=== PATIENT | male | born 1945 | race Caucasian/White ===

== ENCOUNTER → 2016-09-20 | Outpatient (CLI) | payer OTHER ==
[2016-07-15 04:52] VITALS: BP 124/62
--- NOTE | 2016-09-21 07:52 | MRI ---
HISTORY: Low back pain, fall, compression fracture Study: MRI lumbar spine without contrast Comparison: None Technique: Multiplanar multi-sequence MRI of the lumbar spine was obtained. Sagittal T1, sagittal T 2, and stir weighted images, axial T1, and axial T2 images were obtained. Findings: There is a compression fracture of L4 demonstrating signal characteristics suggesting that it is rec ent . There is slight retrolisthesis L5 on S1. The lumbar spine demonstrates otherwise normal alignm ent with the expected signal characteristics of the bone marrow. The conus of the cord terminates n ormally. T12-L1 : No evidence for compressive disc disease. The neural foramina are patent. The joints are no rmal. L1-2: There is disc degeneration. There is increased T2 signal within the disc which could be relate d to edema or fluid. Disc infection should be clinically excluded. There is no evidence for compress brent disc disease. The neural foramina are patent. The joints are normal. L2-3: No evidence for compressive disc disease. The neural foramina are patent. The joints are bryon l. L3-4:: As noted above there is an L4 compression fracture with signal characteristics suggesting elham t it is recent. There is no evidence for compressive disc disease. The neural foramina are patent. T he joints are normal. L4 -- L5: Concentric disk bulging contributes along with mild pedicular shortening to mild lateral r ecess narrowing bilaterally. The joints are normal. L5 -- S1: There is slight retrolisthesis L5 on S1 which contributes to mild lateral recess and macrina inal narrowing bilaterally worse on the right than the left. Mild bilateral facet arthropathy is pre sent. IMPRESSION: Compression fracture of L4 with signal characteristics suggesting that it is recent Abnormal T2 signal within the L1-2 disc which could indicate edema or fluid secondary to disc infect ion. Disc infection should be clinically excluded. Other disc level findings detailed for each level above. Reported By:
== END ==
LOC: RAD 09:27
PROVIDERS: ATTEND Specialist
DX: S32.040A Wedge compression fracture of fourth lumbar vertebra, initial encounter for closed fracture (principal); X58.XXXA Exposure to other specified factors, initial encounter
CPT/HCPCS: 72148

== ENCOUNTER → 2016-10-17 | Outpatient (CLI) | payer OTHER ==
[2016-07-15 04:52] VITALS: BP 124/62
[2016-10-17 13:31] LABS: BILIRUBIN,URINE NEGATIVE (NEGATIVE); BLOOD/HEMOGLOBIN,URINE 1+ (NEGATIVE); GLUCOSE, URINE 1+ (NEGATIVE); KETONES,URINE NEGATIVE (NEGATIVE); LEUKOCYTE ESTERASE ,URINE 1+ (NEGATIVE); NITRITES,URINE NEGATIVE (NEGATIVE); PROTEIN,URINE 1+ (NEGATIVE); UROBILINOGEN,URINE NORMAL (NORMAL)
--- NOTE | 2016-10-17 13:35 | RAD ---
HISTORY: Preop back surgery. Study: PA and lateral chest. Comparison: Chest x-ray dated September 10, 2015. Findings: The trachea is midline. The cardiac silhouette is at the upper limits of normal. Postsurgical huffman es status post CABG. The lungs are clear without focal infiltrate or effusion. The osseous structu res appear unchanged. Surgical clips in the right upper quadrant. IMPRESSION: 1. No acute cardiopulmonary disease. Reported By:
[2016-10-17 13:41] LABS: BASOPHILS # (AUTO) 0.1 X10^3/uL (0.0-0.1); BASOPHILS % (AUTO) 0.9 % (0.2-1.0); EOSINOPHILS # (AUTO) 0.2 x10^3/uL (0.0-0.2); EOSINOPHILS % (AUTO) 3.2 % (0.9-2.9); HEMATOCRIT 37.5 % (42.0-54.0); HEMOGLOBIN 12.8 g/dL (13.5-18.0); LYMPHOCYTES # (AUTO) 2.1 X10^3/uL (1.3-2.9); LYMPHOCYTES % (AUTO) 28.1 % (21.0-51.0); MEAN CORPUSCULAR HEMOGLOBIN 30.8 pg (27.0-34.0); MEAN CORPUSCULAR HGB CONC 34.1 g/dL (33.0-35.0); MEAN CORPUSCULAR VOLUME 90.2 fL (80.0-100.0); MEAN PLATELET VOLUME 7.9 fL (7.4-11.0); MONOCYTES # (AUTO) 0.4 x10^3/uL (0.3-0.8); MONOCYTES % (AUTO) 5.1 % (0.0-13.0); NEUTROPHILS # (AUTO) 4.6 x10^3/uL (2.2-4.8); NEUTROPHILS % (AUTO) 62.7 % (42.0-75.0); PLATELET COUNT 175 X10^3/uL (150.0-450.0); RED BLOOD COUNT 4.16 X10^6/uL (4.7-6.0); RED CELL DISTRIBUTION WIDTH 15.7 % (11.6-16.5); WHITE BLOOD COUNT 7.3 X10^3/uL (3.6-10.0)
[2016-10-17 13:42] LABS: AMORPHOUS SEDIMENT,UR TRACE /HPF (NEGATIVE); APPEARANCE,URINE SLIGHTLY HAZY (CLEAR); BACTERIA,URINE TRACE /HPF (NEGATIVE); COLOR,URINE YELLOW (YELLOW); SQUAMOUS EPITHELIAL CELL,UR FEW /HPF (NEGATIVE)
[2016-10-17 13:45] LABS: ALANINE AMINOTRANSFERASE 45 Units/L (12-78); ALBUMIN 3.9 g/dL (3.4-5.0); ALKALINE PHOSPHATASE 77 Units/L (46-116); ASPARTATE AMINO TRANSFERASE 31 Units/L (15-37); BLOOD UREA NITROGEN 17 mg/dL (7-18); CALCIUM 9.8 mg/dL (8.5-10.1); CARBON DIOXIDE 30.9 mmol/L (21-32); CHLORIDE 108 mmol/L (98-107); COR NA(FOR HYPERGLY) 147 mmol/L (136-145); CREATININE 1.35 mg/dL (0.70-1.30); GLUCOSE 144 mg/dL (65-99); SODIUM 146 mmol/L (136-145); TOTAL PROTEIN 7.6 g/dL (6.4-8.2); eGFR BLACK RACES > 60 (>60); eGFR NON BLACK RACES 56 (>60)
== END | disposition home or self-care (01) ==
LOC: LAB 12:56
PROVIDERS: ATTEND Specialist
DX: Z01.818 Encounter for other preprocedural examination (principal); Z01.810 Encounter for preprocedural cardiovascular examination; Z01.811 Encounter for preprocedural respiratory examination; Z79.899 Other long term (current) drug therapy; Z79.01 Long term (current) use of anticoagulants; Z11.8 Encounter for screening for other infectious and parasitic diseases; S32.000A Wedge compression fracture of unspecified lumbar vertebra, initial encounter for closed fracture; X58.XXXA Exposure to other specified factors, initial encounter
CPT/HCPCS: 36415; 71020; 80053; 81001; 85025; 85610; 85730; 87641; 93005; 93010

== ENCOUNTER 2016-10-19 07:26 | Day surgery (SDC) | payer OTHER ==
[2016-10-19] MEDS ORDERED: MARCAINE 0.25% WITH EPI IJ ONE (07:27)
[2016-10-19] MEDS ORDERED: XYLOCAINE 1 % (PLAIN) ONE (07:27)
[2016-10-19] MEDS ORDERED: D5 LR 1000 ML 1,000 ML IV ONE (07:40)
[2016-10-19] MEDS ORDERED: NS 50 ML IV + SPIKE MINIBAG* 50 ML IV ONE (07:40)
[2016-10-19] MEDS ORDERED: ANCEF VIAL 1 GM ONE (07:41)
[2016-10-19] MEDS ORDERED: NS 1000 ML 1,000 ML ONE (07:51)
[2016-10-19] MEDS ORDERED: FENTANYL INJ 250 mcg ONE (08:39)
[2016-10-19] MEDS ORDERED: KETALAR ONE (08:39)
[2016-10-19] MEDS ORDERED: DILAUDID INJ ONE (08:39)
[2016-10-19] MEDS ORDERED: BENADRYL INJ 50 MG VIAL ONE (09:18)
[2016-10-19] MEDS ORDERED: DIPRIVAN VIAL ONE (10:10)
[2016-10-19] MEDS ORDERED: BENADRYL INJ 50 MG VIAL IVP PRN (10:12)
[2016-10-19] MEDS ORDERED: DILAUDID INJ IVP PRN (10:12)
[2016-10-19] MEDS ORDERED: ZOFRAN INJ 4 MG VIAL IVP PRN (10:12)
[2016-10-19] MEDS ORDERED: PHENERGAN INJ 25 MG IVP PRN (10:12)
[2016-10-19] MEDS ORDERED: LR 1000 ML IV 1,000 ML IV SCH (11:00)
[2016-10-19 12:20] VITALS: BP 131/69
== END 2016-10-19 11:20 | disposition home or self-care (01) | DRG 517 ==
LOC: SURG1 07:26
PROVIDERS: ATTEND Specialist
PROC: 0QS03ZZ Reposition Lumbar Vertebra, Percutaneous Approach (ICD-10-PCS; principal; 2016-10-19 08:30)
PROC: 0QU03JZ Supplement Lumbar Vertebra with Synthetic Substitute, Percutaneous Approach (ICD-10-PCS; principal; 2016-10-19 08:30)
DX: S32.040A Wedge compression fracture of fourth lumbar vertebra, initial encounter for closed fracture (principal); X58.XXXA Exposure to other specified factors, initial encounter
CPT/HCPCS: 76000; 99100; A4222; S0020; J0690; J1170; J1200; J2001; J3010; J3490; J7120

== ENCOUNTER 2016-11-22 20:06 | Emergency (ER) | payer OTHER ==
[2016-11-22 20:15] VITALS: BP 128/69; BMI 25.2
[2016-11-22] MEDS ORDERED: NS 500 ML IV 500 ML IV ONE ×2 (20:42→20:45)
[2016-11-22] MEDS ORDERED: ZOFRAN INJ 4 MG VIAL IVP ONE (20:42)
[2016-11-22] MEDS ORDERED: ZOFRAN INJ 4 MG VIAL ONE (20:45)
--- NOTE | 2016-11-22 20:45 | DR.GENAD ---
HPI - PCP Primary Care Physician: ROXANN - Complaint/Symptoms Chief Complaint:: " I HAVENT BEEN ABLE TO EAT ANYTHING X4 DAYS AND N/V." - Source History Provided: Patient - Mode of Arrival Mode of Arrival: Ambulatory - Timing Onset of Chief Complaint: 11/18/16 Came on: Gradually - Duration Duration: Constant How lon Duration: Days - Location Location: stomach - Severity Severity: Moderate - Modifying Factors Worsens:: food - Associated Signs and Symptoms Associated Signs and Symptoms: vomiting PMH - PMH Past Medical History: Yes Past Medical History: Anemia, Anxiety, Coronary Artery Disease, Diabetes, Dyslipidemia, GERD, Hypertension, Hypothyroidism, Kidney Stones, [place] Past Surgical History: Yes Surgical History: Ortho Surgery Past Surgical History Comment: 4 BYPASS 2001 - Family History History of Family Medical Conditions: Yes Family Medical History: Diabetes Mellitus, Cancer, [place], Coronary Artery Disease, Heart Failure - Social History Alcohol Use: None Do you use any recreational Drugs:: No Lives With: Family Lives Where: Home - infectious screening Have you traveled outside the country in the last 6 months?: No PE - Vital Signs Vitals: Temperature 99.9 F Pulse Rate 82 Respiratory Rate 18 Blood Pressure [Left Arm] 132/63 Blood Pressure [Right Arm] 102/55 Blood Pressure 128/69 O2 Sat by Pulse Oximetry 97 Course - Treatment Treatment: 2200: feels better after IVF and zofran ROR - Labs Reviewed Result Diagrams: 11/22/16 21:10 11/22/16 21:10 Laboratory: WBC 9.8 X10^3/uL (3.6-10.0) 11/22/16 21:10 RBC 3.87 X10^6/uL (4.7-6.0) L 11/22/16 21:10 Hgb 12.3 g/dL (13.5-18.0) L 11/22/16 21:10 Hct 35.2 % (42.0-54.0) L 11/22/16 21:10 MCV 90.9 fL (80.0-100.0) 11/22/16 21:10 MCH 31.8 pg (27.0-34.0) 11/22/16 21:10 MCHC 35.0 g/dL (33.0-35.0) 11/22/16 21:10 RDW 15.7 % (11.6-16.5) 11/22/16 21:10 Plt Count 159 X10^3/uL (150.0-450.0) 11/22/16 21:10 MPV 8.2 fL (7.4-11.0) 11/22/16 21:10 Neut % 71.3 % (42.0-75.0) 11/22/16 21:10 Lymph % 13.7 % (21.0-51.0) L 11/22/16 21:10 [place] % 12.1 % (0.0-13.0) 11/22/16 21:10 Eos % 2.1 % (0.9-2.9) 11/22/16 21:10 Baso % 0.8 % (0.2-1.0) 11/22/16 21:10 Neut # 7.0 x10^3/uL (2.2-4.8) H 11/22/16 21:10 Lymph # 1.3 X10^3/uL (1.3-2.9) 11/22/16 21:10 [place] # 1.2 x10^3/uL (0.3-0.8) H 11/22/16 21:10 Eos # 0.2 x10^3/uL (0.0-0.2) 11/22/16 21:10 Baso # 0.1 X10^3/uL (0.0-0.1) 11/22/16 21:10 Absolute Nucleated RBC 0.1 /100WBC 11/22/16 21:10 Sodium 133 mmol/L (136-145) L 11/22/16 21:10 Corrected Sodium 137 mmol/L (136-145) 11/22/16 21:10 Potassium 4.1 mmol/L (3.5-5.1) 11/22/16 21:10 Chloride 96 mmol/L (98-107) L 11/22/16 21:10 Carbon Dioxide 28.7 mmol/L (21-32) 11/22/16 21:10 BUN 16 mg/dL (7-18) 11/22/16 21:10 Creatinine 1.57 mg/dL (0.70-1.30) H 11/22/16 21:10 Est GFR (MDRD) Af Amer 56 (>60) L 11/22/16 21:10 Est GFR (MDRD) Non-Af 47 (>60) L 11/22/16 21:10 Glucose 265 mg/dL (65-99) H 11/22/16 21:10 Calcium 8.5 mg/dL (8.5-10.1) 11/22/16 21:10 Corrected Calcium TNP 11/22/16 21:10 Total Bilirubin 1.50 mg/dL (0.2-1.0) H 11/22/16 21:10 AST 19 Units/L (15-37) 11/22/16 21:10 ALT 31 Units/L (12-78) 11/22/16 21:10 Alkaline Phosphatase 74 Units/L (46-116) 11/22/16 21:10 Total Protein 7.7 g/dL (6.4-8.2) 11/22/16 21:10 Albumin 3.4 g/dL (3.4-5.0) 11/22/16 21:10 Globulin 4.3 g/dL (2.5-4.5) 11/22/16 21:10 Albumin/Globulin Ratio 0.8 Ratio (1.1-2.1) L 11/22/16 21:10 - Diagnosis Discharge Problem: Vomiting Qualifiers: Vomiting type: unspecified Vomiting Intractability: non-intractable Nausea presence: with nausea Qualified Code(s): R11.2 - Nausea with vomiting, unspecified - Discharge Plan Condition: Stable Prescriptions: Ondansetron [Zofran Odt] 4 mg PO Q8H PRN #12 tab PRN Reason: Nausea/Vomiting - Follow ups/Referrals Follow ups/Referrals: Deric Stauffer [Primary Care Provider] - 3 days - Instructions
[2016-11-22 21:19] LABS: BASOPHILS # (AUTO) 0.1 X10^3/uL (0.0-0.1); BASOPHILS % (AUTO) 0.8 % (0.2-1.0); EOSINOPHILS # (AUTO) 0.2 x10^3/uL (0.0-0.2); EOSINOPHILS % (AUTO) 2.1 % (0.9-2.9); HEMATOCRIT 35.2 % (42.0-54.0); HEMOGLOBIN 12.3 g/dL (13.5-18.0); LYMPHOCYTES # (AUTO) 1.3 X10^3/uL (1.3-2.9); LYMPHOCYTES % (AUTO) 13.7 % (21.0-51.0); MEAN CORPUSCULAR HEMOGLOBIN 31.8 pg (27.0-34.0); MEAN CORPUSCULAR VOLUME 90.9 fL (80.0-100.0); MEAN PLATELET VOLUME 8.2 fL (7.4-11.0); MONOCYTES # (AUTO) 1.2 x10^3/uL (0.3-0.8); MONOCYTES % (AUTO) 12.1 % (0.0-13.0); NEUTROPHILS % (AUTO) 71.3 % (42.0-75.0); PLATELET COUNT 159 X10^3/uL (150.0-450.0); RED BLOOD COUNT 3.87 X10^6/uL (4.7-6.0); RED CELL DISTRIBUTION WIDTH 15.7 % (11.6-16.5); WHITE BLOOD COUNT 9.8 X10^3/uL (3.6-10.0)
[2016-11-22 21:35] LABS: ALANINE AMINOTRANSFERASE 31 Units/L (12-78); ALBUMIN 3.4 g/dL (3.4-5.0); ALKALINE PHOSPHATASE 74 Units/L (46-116); ASPARTATE AMINO TRANSFERASE 19 Units/L (15-37); BLOOD UREA NITROGEN 16 mg/dL (7-18); CALCIUM 8.5 mg/dL (8.5-10.1); CARBON DIOXIDE 28.7 mmol/L (21-32); CHLORIDE 96 mmol/L (98-107); COR NA(FOR HYPERGLY) 137 mmol/L (136-145); CREATININE 1.57 mg/dL (0.70-1.30); GLUCOSE 265 mg/dL (65-99); SODIUM 133 mmol/L (136-145); TOTAL PROTEIN 7.7 g/dL (6.4-8.2); eGFR BLACK RACES 56 (>60); eGFR NON BLACK RACES 47 (>60)
== END 2016-11-22 22:30 | disposition home or self-care (01) ==
LOC: ER 20:20
DX: R11.2 Nausea with vomiting, unspecified (principal)
CPT/HCPCS: 36415; 80053; 85025; 96365; 96367; 96374; 99282; 99283; A4222; J2405

== ENCOUNTER 2016-11-24 11:32 | Emergency (ER) | payer OTHER ==
[2016-11-24 11:38] VITALS: BP 118/70; BMI 25.2
[2016-11-24 11:59] LABS: BASOPHILS # (AUTO) 0.1 X10^3/uL (0.0-0.1); BASOPHILS % (AUTO) 0.8 % (0.2-1.0); EOSINOPHILS # (AUTO) 0.3 x10^3/uL (0.0-0.2); EOSINOPHILS % (AUTO) 2.6 % (0.9-2.9); HEMATOCRIT 34.8 % (42.0-54.0); HEMOGLOBIN 12.3 g/dL (13.5-18.0); LYMPHOCYTES % (AUTO) 9.7 % (21.0-51.0); MEAN CORPUSCULAR HEMOGLOBIN 32.1 pg (27.0-34.0); MEAN CORPUSCULAR HGB CONC 35.4 g/dL (33.0-35.0); MEAN CORPUSCULAR VOLUME 90.6 fL (80.0-100.0); MEAN PLATELET VOLUME 8.2 fL (7.4-11.0); MONOCYTES % (AUTO) 9.3 % (0.0-13.0); NEUTROPHILS # (AUTO) 8.1 x10^3/uL (2.2-4.8); NEUTROPHILS % (AUTO) 77.6 % (42.0-75.0); PLATELET COUNT 179 X10^3/uL (150.0-450.0); RED BLOOD COUNT 3.84 X10^6/uL (4.7-6.0); RED CELL DISTRIBUTION WIDTH 15.1 % (11.6-16.5); WHITE BLOOD COUNT 10.5 X10^3/uL (3.6-10.0)
[2016-11-24 12:11] LABS: ALBUMIN 3.3 g/dL (3.4-5.0); CALCIUM 8.4 mg/dL (8.5-10.1); CARBON DIOXIDE 27.5 mmol/L (21-32); CREATININE 1.53 mg/dL (0.70-1.30); TOTAL PROTEIN 7.8 g/dL (6.4-8.2)
--- NOTE | 2016-11-24 12:14 | DR.GENAD ---
HPI - PCP Primary Care Physician: ROXANN - Complaint/Symptoms Chief Complaint:: STATES PT. HAS BEEN SICK FOR ABOUT A WEEK WITH DECREASED APPEPTITE, N/V, CONFUSION. PT. WAS SEEN IN THE ER ON 11/22/16 AND RECEIVED IV FLUIDS. STATES PT. IS NOT EATING OR DRINKING ANYTHING AND THE CONFUSION HAS BEEN PERSISTENT. PT. C/O ABDOMINAL PAIN & NAUSEA. - Source History Provided: Patient - Mode of Arrival Mode of Arrival: Ambulatory - Timing Onset of Chief Complaint: 11/22/16 PMH - PMH Past Medical History: Yes Past Medical History: Anemia, Anxiety, Coronary Artery Disease, Diabetes, Dyslipidemia, GERD, Hypertension, Hypothyroidism, Kidney Stones, [place] Past Surgical History: Yes Surgical History: Ortho Surgery - Family History History of Family Medical Conditions: Yes Family Medical History: Diabetes Mellitus, Cancer, [place], Coronary Artery Disease, Heart Failure - Social History Does patient currently use any type of tobacco product: No Have you used tobacco products in the last 12 months: No Type of Tobacco Use: None Does any household member use tobacco: No Alcohol Use: None Do you use any recreational Drugs:: No Lives With: Spouse Lives Where: Home - infectious screening In the last 2 months have you had wt loss of >10#?: NO Have you had fever, night sweats or hemotysis?: No Have you traveled outside the country in the last 6 months?: No Isolation: Standard PE - Vital Signs Vitals: Temperature 98.6 F Pulse Rate 78 Respiratory Rate 17 Blood Pressure [Left Arm] 132/63 Blood Pressure [Right Arm] 102/55 Blood Pressure 118/70 O2 Sat by Pulse Oximetry 97 ROR - Labs Reviewed Result Diagrams: 11/24/16 11:50 11/24/16 11:50 Laboratory: WBC 10.5 X10^3/uL (3.6-10.0) H 11/24/16 11:50 RBC 3.84 X10^6/uL (4.7-6.0) L 11/24/16 11:50 Hgb 12.3 g/dL (13.5-18.0) L 11/24/16 11:50 Hct 34.8 % (42.0-54.0) L 11/24/16 11:50 MCV 90.6 fL (80.0-100.0) 11/24/16 11:50 MCH 32.1 pg (27.0-34.0) 11/24/16 11:50 MCHC 35.4 g/dL (33.0-35.0) H 11/24/16 11:50 RDW 15.1 % (11.6-16.5) 11/24/16 11:50 Plt Count 179 X10^3/uL (150.0-450.0) 11/24/16 11:50 MPV 8.2 fL (7.4-11.0) 11/24/16 11:50 Neut % 77.6 % (42.0-75.0) H 11/24/16 11:50 Lymph % 9.7 % (21.0-51.0) L 11/24/16 11:50 [place] % 9.3 % (0.0-13.0) 11/24/16 11:50 Eos % 2.6 % (0.9-2.9) 11/24/16 11:50 Baso % 0.8 % (0.2-1.0) 11/24/16 11:50 Neut # 8.1 x10^3/uL (2.2-4.8) H 11/24/16 11:50 Lymph # 1.0 X10^3/uL (1.3-2.9) L 11/24/16 11:50 [place] # 1.0 x10^3/uL (0.3-0.8) H 11/24/16 11:50 Eos # 0.3 x10^3/uL (0.0-0.2) H 11/24/16 11:50 Baso # 0.1 X10^3/uL (0.0-0.1) 11/24/16 11:50 Absolute Nucleated RBC 0.0 /100WBC 11/24/16 11:50 - Diagnosis Discharge Problem: Dehydration - Discharge Plan Disposition: 01 HOME, SELF-CARE Condition: Good - Follow ups/Referrals Follow ups/Referrals: Deric Stauffer [Primary Care Provider] - 3 days - Instructions Instructions: Nausea, Adult, Dehydration, Adult, [id number], Rehydration, Adult
[2016-11-24 12:15] LABS: BILIRUBIN,URINE NEGATIVE (NEGATIVE); BLOOD/HEMOGLOBIN,URINE 3+ (NEGATIVE); GLUCOSE, URINE 3+ (NEGATIVE); KETONES,URINE 1+ (NEGATIVE); LEUKOCYTE ESTERASE ,URINE NEGATIVE (NEGATIVE); NITRITES,URINE NEGATIVE (NEGATIVE); PROTEIN,URINE 2+ (NEGATIVE); UROBILINOGEN,URINE 2+ (NORMAL)
[2016-11-24 12:25] LABS: AMORPHOUS SEDIMENT,UR 2+ /HPF (NEGATIVE); APPEARANCE,URINE CLEAR (CLEAR); BACTERIA,URINE NEGATIVE /HPF (NEGATIVE); COLOR,URINE YELLOW (YELLOW); RBC,URINE RARE /HPF (NEGATIVE); SQUAMOUS EPITHELIAL CELL,UR RARE /HPF (NEGATIVE)
--- NOTE | 2016-11-24 12:54 | CT ---
HISTORY: mental status changes Study: CT brain without contrast Comparison: 07/15/2016 Technique: Multiple axial images of the brain were obtained from the skull base to the vertex without administr ation of IV contrast. Automated dose control was used. Findings: The ventricles are mildly enlarged and there is diffuse mild prominence of the cortical sulci. There is mild to moderate periventricular low density bilaterally which is unchanged. No intracranial hem orrhage or edema is seen. There is no extra-axial fluid collection or mass. The bones are intact. IMPRESSION: Mild atrophy and mild to moderate chronic microischemic changes in the deep white matter which is un changed with no acute intracranial abnormality seen. Reported By:
[2016-11-24] MEDS ORDERED: NS 1000 ML 1,000 ML IV ONE (13:42)
[2016-11-24] MEDS ORDERED: NS 1000 ML 1,000 ML ONE (13:49)
== END 2016-11-24 15:29 | disposition home or self-care (01) ==
LOC: ER 11:52
DX: E86.0 Dehydration (principal); G31.9 Degenerative disease of nervous system, unspecified
CPT/HCPCS: 36415; 51702; 70450; 80053; 80307; 81001; 82150; 85025; 93005; 93010; 96365; 99283; A4222; G0434

== ENCOUNTER 2016-11-25 19:06 | Observation (INO) | payer OTHER ==
--- NOTE | 2016-11-25 19:50 | DR.GENAD ---
HPI - PCP Primary Care Physician: Eh - HPI Comment HPI Comment: HISTORY BELOW. - Complaint/Symptoms Chief Complaint Doctors Comments: SICK FOR 2 WEEKS WITH GENERALIZE WEAKNESS, NAUSEA, VOMITING. HAD ARTERIOGAM LLE. FEW DAYS AGO. ON CIPRO FOR UTI CURRENTLY. HAD CHILLS LAST NIGHT. Chief Complaint:: "He has came here two different times now for the same thing. He is severely dehydrated and is running a fever. He can't keep anything down and is not able to take his dementia medicine. He has also not been able to control his urine and has constant accidents. He is also confused." - Nurses notes reviewed Nurses Notes Review: Yes - Source History Provided: Patient - Mode of Arrival Mode of Arrival: Wheelchair - Timing Onset of Chief Complaint: 11/09/16 Came on: Suddenly - Duration Duration: Constant Duration: Days - Severity Severity: Moderate PMH - PMH Past Medical History: Yes Past Medical History: Anemia, Anxiety, Coronary Artery Disease, Diabetes, Dyslipidemia, GERD, Hypertension, Hypothyroidism, Kidney Stones, [place] Past Surgical History: Yes Surgical History: Ortho Surgery - Family History History of Family Medical Conditions: Yes Family Medical History: Diabetes Mellitus, Cancer, [place], Coronary Artery Disease, Heart Failure - Social History Does patient currently use any type of tobacco product: No Have you used tobacco products in the last 12 months: No Type of Tobacco Use: None Does any household member use tobacco: No Alcohol Use: None Do you use any recreational Drugs:: No Lives With: Family Lives Where: Home - infectious screening In the last 2 months have you had wt loss of >10#?: NO Have you had fever, night sweats or hemotysis?: No Have you traveled outside the country in the last 6 months?: No Isolation: Standard ROS - Review of Systems Constitutional: Chills, Fever, Weakness, Fatigue. negative: Diaphoresis Eyes: Photophobia. negative: Eye Pain, Discharge ENTM: No Symptoms Reported. negative: Ear Pain, Nose Discharge, Nose Congestion , Throat Pain Respiratoy: Non-Productive Cough, Short of Breath, Wheezing. negative: Hemoptysis Cardiovascular: Chest Pain. negative: Edema, Palpitations, Syncope Gastrointestinal/Abdominal: Nausea, Vomiting. negative: Abdominal Pain Genitourinary: No Symptoms Reported. negative: Dysuria, Frequency, Hematuria Neurological: Weakness, Dizziness. negative: Headache Musculoskeletal: Back Pain, Muscle Pain Integumentary: Dryness Hematologic/Lymphatic: Easy Bruising Endocrine: Increased Thirst. negative: Flushing All Other Systems: Reviewed and Negative PE - Vital Signs Vitals: Blood Pressure [Left Arm] 132/63 Blood Pressure [Right Arm] 102/55 Blood Pressure 118/70 - General Limitations: Altered Mental Status General Appearance: Alert - Head Head Exam: Normal Inspection - Eyes Eye exam: Normal Appearance - ENT ENT Exam: Normal External Ear Exam External Ear Exam: Normal External Inspection TM/Canal Exam: Bilateral Normal Nose Exam: Normal Nose Exam Mouth Exam: Normal Inspection Throat Exam: Normal Inspection - Neck Neck Exam: Trachea Midline - Chest Chest Inspection: Symmetric Chest Wall Rise - Respiratory Respiratory Exam: Respiratory Distress Respiratory Exam: Bilateral Rhonchi, Upper Rhonchi, Lower Rhonchi - Cardiovascular Cardiovascular Exam: Regular Rate, Normal Rhythm, Normal Heart Sounds - Abdominal Exam Abdominal Exam: Normal Bowel Sounds, Soft. negative: Tenderness - Extremities Extremities Exam: Normal Inspection - Back Back Exam: Paraspinal Tenderness - Neurologic Neurological Exam: Alert MDM - Additional Information Additional Information Obtained From: Family - Differential Diagnosis Differential Diagnosis: GENERALIZE WEAKNESS, DEHYDRATION, Course - Treatment Treatment: SEE ORDERS. - Education/Counseling Education/Counseling: Patient, Family, Education Educated On: Treatment, Diagnosis, Needs for Follow Up ROR - Labs Reviewed Laboratory Results Reviewed?: Yes Result Diagrams: 11/25/16 20:05 11/25/16 20:05 Laboratory: WBC 18.1 X10^3/uL (3.6-10.0) H 11/25/16 20:05 RBC 3.63 X10^6/uL (4.7-6.0) L 11/25/16 20:05 Hgb 11.4 g/dL (13.5-18.0) L 11/25/16 20:05 Hct 32.8 % (42.0-54.0) L 11/25/16 20:05 MCV 90.4 fL (80.0-100.0) 11/25/16 20:05 MCH 31.3 pg (27.0-34.0) 11/25/16 20:05 MCHC 34.6 g/dL (33.0-35.0) 11/25/16 20:05 RDW 14.8 % (11.6-16.5) 11/25/16 20:05 Plt Count 210 X10^3/uL (150.0-450.0) 11/25/16 20:05 Plt Count Comment Adequate (ADEQUATE) 11/25/16 20:05 MPV 8.6 fL (7.4-11.0) 11/25/16 20:05 Neut % 85.6 % (42.0-75.0) H 11/25/16 20:05 Lymph % 4.0 % (21.0-51.0) L 11/25/16 20:05 [place] % 9.9 % (0.0-13.0) 11/25/16 20:05 Eos % 0.1 % (0.9-2.9) L 11/25/16 20:05 Baso % 0.4 % (0.2-1.0) 11/25/16 20:05 Neut # 15.6 x10^3/uL (2.2-4.8) H 11/25/16 20:05 Lymph # 0.7 X10^3/uL (1.3-2.9) L 11/25/16 20:05 [place] # 1.8 x10^3/uL (0.3-0.8) H 11/25/16 20:05 Eos # 0.0 x10^3/uL (0.0-0.2) 11/25/16 20:05 Baso # 0.1 X10^3/uL (0.0-0.1) 11/25/16 20:05 Absolute Nucleated RBC 0.0 /100WBC 11/25/16 20:05 Total Counted 100 11/25/16 20:05 Neutrophils % (Manual) 72 % (39-76) 11/25/16 20:05 Band Neutrophils % 13 % (0-10) H 11/25/16 20:05 Lymphocytes % (Manual) 5 % (13-43) L 11/25/16 20:05 Monocytes % (Manual) 8 % (4-9) 11/25/16 20:05 Metamyelocytes % 2 11/25/16 20:05 Plt Morphology Comment Normal (NORMAL) 11/25/16 20:05 RBC Morphology Normal (NORMAL) 11/25/16 20:05 Sodium 128 mmol/L (136-145) L 11/25/16 20:05 Corrected Sodium 134 mmol/L (136-145) L 11/25/16 20:05 Potassium 3.8 mmol/L (3.5-5.1) 11/25/16 20:05 Chloride 91 mmol/L (98-107) L 11/25/16 20:05 Carbon Dioxide 25.4 mmol/L (21-32) 11/25/16 20:05 BUN 18 mg/dL (7-18) 11/25/16 20:05 Creatinine 1.85 mg/dL (0.70-1.30) H 11/25/16 20:05 Est GFR (MDRD) Af Amer 47 (>60) L 11/25/16 20:05 Est GFR (MDRD) Non-Af 38 (>60) L 11/25/16 20:05 Glucose 367 mg/dL (65-99) H 11/25/16 20:05 Lactic Acid 2.4 mmol/L (0.4-2.0) H 11/25/16 20:05 Calcium 8.2 mg/dL (8.5-10.1) L 11/25/16 20:05 Corrected Calcium 8.9 mg/dL (8.5-10.1) 11/25/16 20:05 Total Bilirubin 1.20 mg/dL (0.2-1.0) H 11/25/16 20:05 AST 32 Units/L (15-37) 11/25/16 20:05 ALT 35 Units/L (12-78) 11/25/16 20:05 Alkaline Phosphatase 80 Units/L (46-116) 11/25/16 20:05 Creatine Kinase 100 Units/L (39-308) 11/25/16 20:05 CK-MB (CK-2) < 1.0 ng/mL (0-4.0) 11/25/16 20:05 CK/CKMB % Calc 1.0 % (<4) 11/25/16 20:05 Troponin I < 0.02 ng/mL (0-1.5) 11/25/16 20:05 B-Natriuretic Peptide 104 pg/mL (0-79) H 11/25/16 20:05 Total Protein 7.5 g/dL (6.4-8.2) 11/25/16 20:05 Albumin 3.1 g/dL (3.4-5.0) L 11/25/16 20:05 Globulin 4.4 g/dL (2.5-4.5) 11/25/16 20:05 Albumin/Globulin Ratio 0.7 Ratio (1.1-2.1) L 11/25/16 20:05 Specimen Type Clean catch urine 11/25/16 22:34 Urine Color Yellow (YELLOW) 11/25/16 22:34 Urine Appearance Cloudy (CLEAR) 11/25/16 22:34 Urine pH 5.0 (5.0 - 8.0) 11/25/16 22:34 Ur Specific [place] 1.020 (1.000-1.030) 11/25/16 22:34 Urine Protein 2+ (NEGATIVE) 11/25/16 22:34 Urine Glucose (UA) 4+ (NEGATIVE) 11/25/16 22:34 Urine Ketones 1+ (NEGATIVE) 11/25/16 22:34 Urine Occult Blood 3+ (NEGATIVE) 11/25/16 22:34 Urine Nitrite Negative (NEGATIVE) 11/25/16 22:34 Urine Bilirubin Negative (NEGATIVE) 11/25/16 22:34 Urine Urobilinogen 1+ (NORMAL) 11/25/16 22:34 Ur Leukocyte Esterase 1+ (NEGATIVE) 11/25/16 22:34 Urine RBC 10-15 /HPF (NEGATIVE) 11/25/16 22:34 Urine WBC 8-12 /HPF (NEGATIVE) 11/25/16 22:34 Ur Squamous Epith Cells Few /HPF (NEGATIVE) 11/25/16 22:34 Amorphous Sediment 1+ /HPF (NEGATIVE) 11/25/16 22:34 Urine Bacteria 1+ /HPF (NEGATIVE) 11/25/16 22:34 Urine Mucus Few /HPF (NEGATIVE) 11/25/16 22:34 Ur Culture Indicated? Yes/culture set up 11/25/16 22:34 Acetone, Semi-Quant Negative (NEGATIVE) 11/25/16 20:05 - XRAY XRAY Interpreted by: Radiologist XRAY Findings: report discuss with patient. - EKG Rhythm: NSR (ekg noted.) - Diagnosis Discharge Problem: Altered mental state, Dehydration, Generalized weakness UTI (urinary tract infection) Qualifiers: Urinary tract infection type: site unspecified Hematuria presence: without hematuria Qualified Code(s): N39.0 - Urinary tract infection, site not specified - Discharge Plan Condition: Stable - Follow ups/Referrals Follow ups/Referrals: Deric Stauffer [Primary Care Provider] - 3 days - Instructions
[2016-11-25] MEDS ORDERED: NS 1000 ML 1,000 ML IV ONE (20:17)
[2016-11-25 20:26] LABS: BASOPHILS # (AUTO) 0.1 X10^3/uL (0.0-0.1); BASOPHILS % (AUTO) 0.4 % (0.2-1.0); EOSINOPHILS % (AUTO) 0.1 % (0.9-2.9); HEMATOCRIT 32.8 % (42.0-54.0); HEMOGLOBIN 11.4 g/dL (13.5-18.0); LYMPHOCYTES # (AUTO) 0.7 X10^3/uL (1.3-2.9); MEAN CORPUSCULAR HEMOGLOBIN 31.3 pg (27.0-34.0); MEAN CORPUSCULAR HGB CONC 34.6 g/dL (33.0-35.0); MEAN CORPUSCULAR VOLUME 90.4 fL (80.0-100.0); MEAN PLATELET VOLUME 8.6 fL (7.4-11.0); MONOCYTES # (AUTO) 1.8 x10^3/uL (0.3-0.8); MONOCYTES % (AUTO) 9.9 % (0.0-13.0); NEUTROPHILS # (AUTO) 15.6 x10^3/uL (2.2-4.8); NEUTROPHILS % (AUTO) 85.6 % (42.0-75.0); PLATELET COUNT 210 X10^3/uL (150.0-450.0); RED BLOOD COUNT 3.63 X10^6/uL (4.7-6.0); RED CELL DISTRIBUTION WIDTH 14.8 % (11.6-16.5); WHITE BLOOD COUNT 18.1 X10^3/uL (3.6-10.0)
[2016-11-25] MEDS ORDERED: NS 1000 ML 1,000 ML ONE (20:28)
[2016-11-25 20:41] LABS: BLOOD UREA NITROGEN 18 mg/dL (7-18); CALCIUM 8.2 mg/dL (8.5-10.1); CARBON DIOXIDE 25.4 mmol/L (21-32); CHLORIDE 91 mmol/L (98-107); COR NA(FOR HYPERGLY) 134 mmol/L (136-145); CREATININE 1.85 mg/dL (0.70-1.30); GLUCOSE 367 mg/dL (65-99); SODIUM 128 mmol/L (136-145); TROPONIN I < 0.02 ng/mL (0-1.5); eGFR BLACK RACES 47 (>60); eGFR NON BLACK RACES 38 (>60)
[2016-11-25 20:44] LABS: BAND NEUTROPHILS % 13 % (0-10); METAMYELOCYTES % 2; PLATELET MORPHOLOGY COMMENT NORMAL (NORMAL)
[2016-11-25 20:45] LABS: ALANINE AMINOTRANSFERASE 35 Units/L (12-78); ALBUMIN 3.1 g/dL (3.4-5.0); ALKALINE PHOSPHATASE 80 Units/L (46-116); ASPARTATE AMINO TRANSFERASE 32 Units/L (15-37); COR CA(FOR HYPOALB) 8.9 mg/dL (8.5-10.1); CREATINE KINASE 100 Units/L (39-308); CREATINE KINASE MB < 1.0 ng/mL (0-4.0); TOTAL PROTEIN 7.5 g/dL (6.4-8.2)
[2016-11-25 21:01] LABS: B-TYPE NATRIURETIC PEPTIDE 104 pg/mL (0-79)
--- NOTE | 2016-11-25 21:13 | CT ---
CT HEAD WITHOUT CONTRAST CLINICAL HISTORY: 71-year-old male with altered mental status. COMPARISON: CT head November 24, 2016. TECHNIQUE: Multiple, non-contrasted axial CT images were obtained from the skull base to the crania l vertex. FINDINGS: There are no abnormal intra- or extra-axial fluid collections, midline shift, or mass effe ct. Edouard-white differentiation is normal. Global cortical involutional changes are present that are within normal limits for the patient's stated age. The ventricular system is mildly enlarged but com mensurate with the degree of sulcal prominence. Periventricular and supraventricular white matter hy podensity is present that is nonspecific in appearance, but most likely to represent microvascular i schemic changes. Atherosclerotic vascular calcification is present within the carotid siphons and di stal vertebral arteries. The paranasal sinuses, mastoid air cells, and tympanic spaces are clear. Bilateral lens implants. IMPRESSION: 1. No definite evidence of an acute intracranial process. If clinical concern remains elevated, cons ider MRI/MRA brain. 2. Moderate microvascular white matter ischemic changes, with associated volume loss. Reported By:
[2016-11-25 22:44] LABS: BILIRUBIN,URINE NEGATIVE (NEGATIVE); BLOOD/HEMOGLOBIN,URINE 3+ (NEGATIVE); GLUCOSE, URINE 4+ (NEGATIVE); KETONES,URINE 1+ (NEGATIVE); LEUKOCYTE ESTERASE ,URINE 1+ (NEGATIVE); NITRITES,URINE NEGATIVE (NEGATIVE); PROTEIN,URINE 2+ (NEGATIVE); UROBILINOGEN,URINE 1+ (NORMAL)
--- NOTE | 2016-11-25 22:59 | RAD ---
HISTORY: 71-year-old male with nausea, cough and dehydration. Study: Frontal view of the chest. Comparison: Chest radiographs October 17, 2016 Findings: Surgical devices are stable. The trachea is midline. The cardiac silhouette is stably enlarged. Low lung volumes without focal consolidation, effusion or pneumothorax. Soft tissues are unremarkable. Osseus structures are unrem arkable. IMPRESSION: 1. No acute cardiopulmonary disease. Reported By:
[2016-11-25 23:16] LABS: AMORPHOUS SEDIMENT,UR 1+ /HPF (NEGATIVE); APPEARANCE,URINE CLOUDY (CLEAR); BACTERIA,URINE 1+ /HPF (NEGATIVE); COLOR,URINE YELLOW (YELLOW); MUCUS,URINE FEW /HPF (NEGATIVE); SQUAMOUS EPITHELIAL CELL,UR FEW /HPF (NEGATIVE)
[2016-11-25] MEDS ORDERED: ROCEPHIN VIAL 1 GM 1 GM in NS 50 ML IV + SPIKE MINIBAG* 50 ML IV ONE (23:26)
[2016-11-25] MEDS ORDERED: ROCEPHIN VIAL 1 GM ONE (23:29)
[2016-11-25] MEDS ORDERED: NS 50 ML IV + SPIKE MINIBAG* 50 ML IV ONE (23:30)
[2016-11-26] MEDS ORDERED: NS 1000 ML 1,000 ML IV SCH ×3 (01:00→16:20)
[2016-11-26] MEDS ORDERED: LEVAQUIN PREMIX IV 500 MG 500 MG/100 ML BAG IV SCH ×2 (01:00)
[2016-11-26] MEDS ORDERED: CONSULT PHARMACY - ANTIBIOTIC XX SCH (01:00)
[2016-11-26 02:40] LABS: CKMB % 0.9 % (<4); CREATINE KINASE 111 Units/L (39-308); CREATINE KINASE MB < 1.0 ng/mL (0-4.0); TROPONIN I < 0.02 ng/mL (0-1.5)
[2016-11-26] MEDS: HumuLIN R SUBCUT PRN ×4 (02:46→20:32)
[2016-11-26 05:37] VITALS: BMI 25.4
[2016-11-26] MEDS ORDERED: MILK OF MAGNESIA PO PRN (05:49)
[2016-11-26] MEDS ORDERED: LEVAQUIN PREMIX IV 500 MG 500 MG/100 ML BAG IV ONE (07:00)
[2016-11-26 09:08] LABS: BASOPHILS # (AUTO) 0.1 X10^3/uL (0.0-0.1); BASOPHILS % (AUTO) 0.5 % (0.2-1.0); EOSINOPHILS # (AUTO) 0.1 x10^3/uL (0.0-0.2); HEMATOCRIT 29.6 % (42.0-54.0); HEMOGLOBIN 10.4 g/dL (13.5-18.0); LYMPHOCYTES # (AUTO) 0.6 X10^3/uL (1.3-2.9); LYMPHOCYTES % (AUTO) 5.2 % (21.0-51.0); MEAN CORPUSCULAR HEMOGLOBIN 31.6 pg (27.0-34.0); MEAN CORPUSCULAR HGB CONC 35.2 g/dL (33.0-35.0); MEAN CORPUSCULAR VOLUME 89.8 fL (80.0-100.0); MEAN PLATELET VOLUME 8.4 fL (7.4-11.0); MONOCYTES # (AUTO) 0.9 x10^3/uL (0.3-0.8); MONOCYTES % (AUTO) 7.4 % (0.0-13.0); NEUTROPHILS % (AUTO) 85.9 % (42.0-75.0); PLATELET COUNT 180 X10^3/uL (150.0-450.0); WHITE BLOOD COUNT 11.7 X10^3/uL (3.6-10.0)
[2016-11-26 09:21] LABS: ALBUMIN 2.7 g/dL (3.4-5.0); CALCIUM 7.8 mg/dL (8.5-10.1); CARBON DIOXIDE 29.7 mmol/L (21-32); COR CA(FOR HYPOALB) 8.8 mg/dL (8.5-10.1); CREATININE 1.62 mg/dL (0.70-1.30); TOTAL PROTEIN 6.7 g/dL (6.4-8.2)
[2016-11-26 09:29] LABS: CREATINE KINASE 105 Units/L (39-308); CREATINE KINASE MB < 1.0 ng/mL (0-4.0); TROPONIN I < 0.02 ng/mL (0-1.5)
[2016-11-26] MEDS ORDERED: PATIENT'S HOME MEDICATION (Ondansetron [Zofran Odt] 4 MG) PO PRN (13:05)
[2016-11-26] MEDS ORDERED: DIAZEPAM 1 MG PO PRN (13:05)
[2016-11-26] MEDS ORDERED: BUTALBITAL PO PRN (13:05)
[2016-11-26] MEDS ORDERED: ACETAMINOPHEN PO PRN (13:05)
[2016-11-26] MEDS ORDERED: [UNRECOGNIZED DRUG - OTHER] PO PRN (13:05)
[2016-11-26] MEDS ORDERED: PROMETHAZINE HCL 25 MG PO PRN (13:05)
[2016-11-26] MEDS ORDERED: LEVSIN/MAALOX/LIDOC VISC PO PRN (13:05)
[2016-11-26] MEDS ORDERED: SENNOSIDES 8.6 MG PO SCH (13:15)
[2016-11-26] MEDS ORDERED: LEVALBUTEROL IN SCH (14:00)
[2016-11-26] MEDS ORDERED: FIORICET TAB PO PRN (14:29)
[2016-11-26] MEDS ORDERED: ZOFRAN TAB 4 MG PO PRN (14:33)
[2016-11-26] MEDS ORDERED: PHENERGAN TAB 25 MG PO PRN (14:34)
[2016-11-26] MEDS ORDERED: ATIVAN TAB 0.5 MG PO PRN (14:39)
[2016-11-26] MEDS: ARICEPT TAB 5 MG PO SCH (15:30)
[2016-11-26] MEDS: COLACE CAP 100 MG PO SCH (15:31)
[2016-11-26] MEDS: ZOLOFT PO SCH (15:31)
[2016-11-26] MEDS: TOPROL XL PO SCH ×2 (15:31→15:35)
[2016-11-26] MEDS: PLAVIX PO SCH (15:31)
[2016-11-26] MEDS: ASPIRIN PO SCH (15:32)
[2016-11-26] MEDS: SYNTHROID 25 mcg TAB PO SCH (15:32)
[2016-11-26] MEDS: NS 1000 ML 1,000 ML IV SCH (17:22)
[2016-11-26] MEDS ORDERED: GLUCOPHAGE ONE (20:16)
[2016-11-26] MEDS: REQUIP PO SCH (20:30)
[2016-11-26] MEDS: PEPCID TAB 20 MG PO SCH (20:30)
[2016-11-26] MEDS: NEURONTIN CAP 300 MG PO SCH (20:31)
[2016-11-26] MEDS: SENOKOT PO SCH (20:31)
[2016-11-26] MEDS: LIPITOR TAB 40 MG PO SCH (20:31)
[2016-11-26] MEDS: GLUCOPHAGE PO SCH ×2 (20:31→22:48)
[2016-11-26] MEDS: NORVASC TAB 5 MG PO SCH (20:32)
[2016-11-26] MEDS: LANTUS SC SCH (20:38)
[2016-11-26] MEDS: SNACK - Diabetic Appropriate PO SCH (20:39)
[2016-11-26] MEDS: XOPENEX 1.25 MG/3 ML NEBULE NEB SCH (20:41)
[2016-11-26] MEDS: PULMICORT NEB TX 0.5 MG NEB PRN (20:41)
[2016-11-26] MEDS ORDERED: FAMOTIDINE 40 MG PO SCH (21:00)
[2016-11-26] MEDS ORDERED: INSULIN GLARGINE HUM REC ANLOG 65 UNIT SC SCH (21:00)
[2016-11-26] MEDS ORDERED: [UNRECOGNIZED DRUG - OTHER] SC SCH (21:00)
[2016-11-26] MEDS ORDERED: COLACE CAP 100 MG PO SCH (21:00)
[2016-11-26] MEDS: TEMOVATE SOLN TOP SCH (22:51)
[2016-11-27] MEDS ORDERED: CONSULT PHARMACY - ANTIBIOTIC XX SCH (01:00)
[2016-11-27] MEDS: XOPENEX 1.25 MG/3 ML NEBULE NEB SCH ×3 (05:06→20:31)
[2016-11-27] MEDS: HumuLIN R SUBCUT PRN ×3 (05:48→20:40)
[2016-11-27 06:13] LABS: BASOPHILS # (AUTO) 0.1 X10^3/uL (0.0-0.1); BASOPHILS % (AUTO) 0.6 % (0.2-1.0); EOSINOPHILS # (AUTO) 0.1 x10^3/uL (0.0-0.2); EOSINOPHILS % (AUTO) 1.4 % (0.9-2.9); HEMATOCRIT 28.3 % (42.0-54.0); HEMOGLOBIN 10.2 g/dL (13.5-18.0); LYMPHOCYTES # (AUTO) 0.8 X10^3/uL (1.3-2.9); LYMPHOCYTES % (AUTO) 8.5 % (21.0-51.0); MEAN CORPUSCULAR HGB CONC 36.1 g/dL (33.0-35.0); MEAN CORPUSCULAR VOLUME 88.8 fL (80.0-100.0); MEAN PLATELET VOLUME 8.5 fL (7.4-11.0); MONOCYTES # (AUTO) 0.8 x10^3/uL (0.3-0.8); MONOCYTES % (AUTO) 8.7 % (0.0-13.0); NEUTROPHILS # (AUTO) 7.1 x10^3/uL (2.2-4.8); NEUTROPHILS % (AUTO) 80.8 % (42.0-75.0); PLATELET COUNT 185 X10^3/uL (150.0-450.0); RED BLOOD COUNT 3.19 X10^6/uL (4.7-6.0); RED CELL DISTRIBUTION WIDTH 14.8 % (11.6-16.5); WHITE BLOOD COUNT 8.8 X10^3/uL (3.6-10.0)
[2016-11-27 06:31] LABS: ALANINE AMINOTRANSFERASE 39 Units/L (12-78); ALBUMIN 2.6 g/dL (3.4-5.0); ALKALINE PHOSPHATASE 70 Units/L (46-116); ASPARTATE AMINO TRANSFERASE 49 Units/L (15-37); BLOOD UREA NITROGEN 13 mg/dL (7-18); CALCIUM 7.9 mg/dL (8.5-10.1); CHLORIDE 99 mmol/L (98-107); COR NA(FOR HYPERGLY) 141 mmol/L (136-145); CREATININE 1.26 mg/dL (0.70-1.30); GLUCOSE 253 mg/dL (65-99); SODIUM 137 mmol/L (136-145); TOTAL PROTEIN 6.5 g/dL (6.4-8.2); eGFR BLACK RACES > 60 (>60); eGFR NON BLACK RACES 60 (>60)
[2016-11-27] MEDS ORDERED: GLUCOPHAGE ONE ×2 (08:14→20:27)
[2016-11-27] MEDS ORDERED: FLUTICASONE PROPIONATE IN SCH (09:00)
[2016-11-27] MEDS ORDERED: HERBAL PO SCH (09:00)
[2016-11-27] MEDS ORDERED: FERROUS FUMARATE PO SCH (09:00)
[2016-11-27] MEDS ORDERED: [UNRECOGNIZED DRUG - OTHER] PO SCH (09:00)
[2016-11-27] MEDS ORDERED: MULTIVIT MINERALS PO SCH (09:00)
[2016-11-27] MEDS ORDERED: FOLIC ACID 400 MCG PO SCH (09:00)
[2016-11-27] MEDS: HEMOCYTE-PLUS PO SCH (09:17)
[2016-11-27] MEDS: NEURONTIN CAP 300 MG PO SCH ×2 (09:17→20:38)
[2016-11-27] MEDS: COLACE CAP 100 MG PO SCH (09:17)
[2016-11-27] MEDS: ZYLOPRIM PO SCH (09:17)
[2016-11-27] MEDS: PULMICORT NEB TX 0.5 MG NEB PRN (09:17)
[2016-11-27] MEDS: TOPROL XL PO SCH (09:17)
[2016-11-27] MEDS: ARICEPT TAB 5 MG PO SCH (09:17)
[2016-11-27] MEDS: ZOLOFT PO SCH (09:17)
[2016-11-27] MEDS: ASPIRIN PO SCH (09:18)
[2016-11-27] MEDS: PLAVIX PO SCH (09:18)
[2016-11-27] MEDS: PROTONIX TAB 40 MG PO SCH (09:18)
[2016-11-27] MEDS: GLUCOPHAGE PO SCH ×2 (09:18→20:38)
[2016-11-27] MEDS: FOLIC ACID TAB 1 MG PO SCH (09:18)
[2016-11-27] MEDS: PriLOSEC PO SCH (09:19)
[2016-11-27] MEDS: TEMOVATE SOLN TOP SCH ×2 (09:19→21:57)
[2016-11-27] MEDS: LEVAQUIN PREMIX IV 250 MG 250 MG/50 ML BAG IV SCH (09:19)
[2016-11-27] MEDS: NS 1000 ML 1,000 ML IV SCH ×3 (10:55→12:47)
[2016-11-27] MEDS: NORCO 5/325 MG TAB PO PRN ×2 (10:56→16:42)
[2016-11-27] MEDS: SYNTHROID 25 mcg TAB PO SCH (16:42)
[2016-11-27] MEDS: SNACK - Diabetic Appropriate PO SCH (20:00)
[2016-11-27] MEDS: REQUIP PO SCH (20:38)
[2016-11-27] MEDS: SENOKOT PO SCH (20:38)
[2016-11-27] MEDS: NORVASC TAB 5 MG PO SCH (20:38)
[2016-11-27] MEDS: PEPCID TAB 20 MG PO SCH (20:38)
[2016-11-27] MEDS: LIPITOR TAB 40 MG PO SCH (20:38)
[2016-11-27] MEDS: LANTUS SC SCH (20:40)
[2016-11-28] MEDS: NS 1000 ML 1,000 ML IV SCH ×3 (04:57→04:58)
[2016-11-28 04:58] LABS: BASOPHILS # (AUTO) 0.1 X10^3/uL (0.0-0.1); EOSINOPHILS # (AUTO) 0.3 x10^3/uL (0.0-0.2); EOSINOPHILS % (AUTO) 3.2 % (0.9-2.9); HEMATOCRIT 30.3 % (42.0-54.0); HEMOGLOBIN 10.6 g/dL (13.5-18.0); LYMPHOCYTES % (AUTO) 11.8 % (21.0-51.0); MEAN CORPUSCULAR HEMOGLOBIN 31.3 pg (27.0-34.0); MEAN CORPUSCULAR HGB CONC 34.8 g/dL (33.0-35.0); MEAN CORPUSCULAR VOLUME 89.8 fL (80.0-100.0); MEAN PLATELET VOLUME 8.4 fL (7.4-11.0); MONOCYTES # (AUTO) 0.8 x10^3/uL (0.3-0.8); MONOCYTES % (AUTO) 8.6 % (0.0-13.0); NEUTROPHILS # (AUTO) 6.6 x10^3/uL (2.2-4.8); NEUTROPHILS % (AUTO) 75.4 % (42.0-75.0); PLATELET COUNT 223 X10^3/uL (150.0-450.0); RED BLOOD COUNT 3.38 X10^6/uL (4.7-6.0); RED CELL DISTRIBUTION WIDTH 14.8 % (11.6-16.5); WHITE BLOOD COUNT 8.8 X10^3/uL (3.6-10.0)
[2016-11-28] MEDS: XOPENEX 1.25 MG/3 ML NEBULE NEB SCH (05:16)
[2016-11-28 05:21] LABS: ALANINE AMINOTRANSFERASE 39 Units/L (12-78); ALBUMIN 2.7 g/dL (3.4-5.0); ALKALINE PHOSPHATASE 77 Units/L (46-116); ASPARTATE AMINO TRANSFERASE 37 Units/L (15-37); BLOOD UREA NITROGEN 12 mg/dL (7-18); CALCIUM 8.1 mg/dL (8.5-10.1); CHLORIDE 103 mmol/L (98-107); COR CA(FOR HYPOALB) 9.1 mg/dL (8.5-10.1); COR NA(FOR HYPERGLY) 143 mmol/L (136-145); CREATININE 1.21 mg/dL (0.70-1.30); GLUCOSE 169 mg/dL (65-99); SODIUM 141 mmol/L (136-145); TOTAL PROTEIN 6.7 g/dL (6.4-8.2); eGFR BLACK RACES > 60 (>60); eGFR NON BLACK RACES > 60 (>60)
[2016-11-28] MEDS: HumuLIN R SUBCUT PRN ×2 (05:45→11:56)
[2016-11-28] MEDS ORDERED: GLUCOPHAGE ONE (07:40)
[2016-11-28] MEDS: LEVAQUIN PREMIX IV 250 MG 250 MG/50 ML BAG IV SCH (08:37)
[2016-11-28] MEDS: PROTONIX TAB 40 MG PO SCH (08:38)
[2016-11-28] MEDS: COLACE CAP 100 MG PO SCH (08:38)
[2016-11-28] MEDS: PriLOSEC PO SCH (08:38)
[2016-11-28] MEDS: ARICEPT TAB 5 MG PO SCH (08:38)
[2016-11-28] MEDS: TOPROL XL PO SCH (08:39)
[2016-11-28] MEDS: PLAVIX PO SCH (08:39)
[2016-11-28] MEDS: ASPIRIN PO SCH (08:39)
[2016-11-28] MEDS: ZOLOFT PO SCH (08:40)
[2016-11-28] MEDS: ZYLOPRIM PO SCH (08:40)
[2016-11-28] MEDS: HEMOCYTE-PLUS PO SCH (08:46)
[2016-11-28] MEDS: GLUCOPHAGE PO SCH (08:46)
[2016-11-28] MEDS: FOLIC ACID TAB 1 MG PO SCH (08:46)
[2016-11-28] MEDS: NEURONTIN CAP 300 MG PO SCH (08:47)
[2016-11-28] MEDS: TEMOVATE SOLN TOP SCH (08:47)
[2016-11-28] MEDS: PULMICORT NEB TX 0.5 MG NEB PRN (09:24)
[2016-11-28 09:25] VITALS: BP 105/62
== END 2016-11-28 11:55 | disposition home or self-care (01) ==
LOC: ER 19:16 → MED/SURG 11-26 00:08 → ER 11-26 00:16
PROVIDERS: ADMIT Internal Medicine; ATTEND Internal Medicine
DX: R41.82 Altered mental status, unspecified (principal); N39.0 Urinary tract infection, site not specified; E86.0 Dehydration; R53.1 Weakness; R11.2 Nausea with vomiting, unspecified; I25.10 Atherosclerotic heart disease of native coronary artery without angina pectoris; E78.2 Mixed hyperlipidemia; K21.9 Gastro-esophageal reflux disease without esophagitis; I10 Essential (primary) hypertension; E03.8 Other specified hypothyroidism; R94.31 Abnormal electrocardiogram [ECG] [EKG]; D72.828 Other elevated white blood cell count; D64.89 Other specified anemias; R94.4 Abnormal results of kidney function studies; E11.65 Type 2 diabetes mellitus with hyperglycemia; E87.1 Hypo-osmolality and hyponatremia
CPT/HCPCS: 36415; 51702; 70450; 71010; 80053; 81001; 82009; 82550; 82553; 83605; 83880; 84484; 85025; 87040; 87086; 93005; 94640; 94760; 96365; 96374; 99284; A4216; A4222; G0378; J0696; J1815; J1956; J7626

== ENCOUNTER 2016-12-02 04:59 | Inpatient (IN) | payer OTHER ==
--- NOTE | 2016-12-02 05:45 | DR.GENAD ---
HPI - PCP Primary Care Physician: nancy - HPI Comment HPI Comment: STARTED SEVERAL DAYS AGO AFTER VENOUS STRIPPING 8 DAYS AGO. NO FEVER. THIS MORNIG, ABSCESS STARTED DRAINING. LOT OF PUS CAME OUT. - Complaint/Symptoms Chief Complaint Doctors Comments: ABSCESS AND CELLULITIS RT GROIN THAT IS DRAINING. Chief Complaint:: INFECTION IN GROIN - Nurses notes reviewed Nurses Notes Review: Yes - Source History Provided: Patient - Mode of Arrival Mode of Arrival: Ambulatory - Timing Onset of Chief Complaint: 12/02/16 Came on: Suddenly - Duration Duration: Constant Duration: Days - Severity Severity: Moderate PMH - PMH Past Medical History: Yes Past Medical History: Anemia, Anxiety, Coronary Artery Disease, Diabetes, Dyslipidemia, GERD, Hypertension, Hypothyroidism, Kidney Stones, [place] Past Surgical History: Yes Surgical History: Abdominal Surgery, Ortho Surgery - Family History History of Family Medical Conditions: Yes Family Medical History: Diabetes Mellitus, Cancer, [place], Coronary Artery Disease, Heart Failure - Social History Does any household member use tobacco: No Alcohol Use: None Do you use any recreational Drugs:: No Lives With: Family Lives Where: Home - infectious screening In the last 2 months have you had wt loss of >10#?: NO Have you had fever, night sweats or hemotysis?: No Have you traveled outside the country in the last 6 months?: No Isolation: Standard ROS - Review of Systems Constitutional: No Symptoms Reported Eyes: No Symptoms Reported ENTM: No Symptoms Reported Respiratoy: No Symptoms Reported Cardiovascular: No Symptoms Reported Gastrointestinal/Abdominal: No Symptoms Reported Genitourinary: No Symptoms Reported, Other (RT GROIN ABSCESS AND CELLULITIS) Neurological: No Symptoms Reported Musculoskeletal: Other (RT GROIN ABSCESS) Integumentary: Lesions (ABSCESS/CELLULITIS) Hematologic/Lymphatic: Easy Bleeding, Easy Bruising Endocrine: negative: Flushing, Increased Thirst, Increased Urine All Other Systems: Reviewed and Negative PE - Vital Signs Vitals: Temperature 98.2 F Pulse Rate 72 Respiratory Rate 16 Blood Pressure [Left Arm] 105/62 Blood Pressure [Right Arm] 107/59 Blood Pressure 112/61 O2 Sat by Pulse Oximetry 98 - General Limitations: No Limitations General Appearance: Alert - Head Head Exam: Normal Inspection - Eyes Eye exam: Normal Appearance - ENT ENT Exam: Normal External Ear Exam External Ear Exam: Normal External Inspection TM/Canal Exam: Bilateral Normal Nose Exam: Normal Nose Exam Mouth Exam: Normal Inspection Throat Exam: Normal Inspection - Neck Neck Exam: Trachea Midline - Chest Chest Inspection: Symmetric Chest Wall Rise - Respiratory Respiratory Exam: negative: Chest Wall Tenderness Respiratory Exam: Bilateral Rhonchi, Lower Rhonchi - Cardiovascular Cardiovascular Exam: Regular Rate, Normal Rhythm, Normal Heart Sounds - Abdominal Exam Abdominal Exam: Other (RT GROIN ABSCESS) - Extremities Extremities Exam: Other (RT GROIN ABSCESS DRAINING) - Back Back Exam: Normal Inspection - Neurologic Neurological Exam: Alert, Oriented X3 - Psychiatric Psychiatric Exam: Normal Affect, Normal Mood - Skin Skin Exam: Erythema MDM - Additional Information Additional Information Obtained From: Family - Differential Diagnosis Differential Diagnosis: CELLULITIS RT GROIN, ABSCESS RT GROIN Course - Treatment Treatment: SEE ORDERS. - Consultation Consultation Comments: DISCUSS PATIENT WITH DR. HAKCETT. HE WILL ADMIT PATIENT. - Education/Counseling Education/Counseling: Patient, Family Educated On: Treatment, Diagnosis ROR - Labs Reviewed Laboratory Results Reviewed?: Yes Result Diagrams: 12/02/16 05:56 12/02/16 05:56 Laboratory: 12/02/16 05:30 Groin Gram Stain - Final WBC 9.2 X10^3/uL (3.6-10.0) 12/02/16 05:56 RBC 3.65 X10^6/uL (4.7-6.0) L 12/02/16 05:56 Hgb 11.3 g/dL (13.5-18.0) L 12/02/16 05:56 Hct 32.7 % (42.0-54.0) L 12/02/16 05:56 MCV 89.6 fL (80.0-100.0) 12/02/16 05:56 MCH 31.0 pg (27.0-34.0) 12/02/16 05:56 MCHC 34.6 g/dL (33.0-35.0) 12/02/16 05:56 RDW 15.4 % (11.6-16.5) 12/02/16 05:56 Plt Count 282 X10^3/uL (150.0-450.0) 12/02/16 05:56 MPV 7.9 fL (7.4-11.0) 12/02/16 05:56 Neut % 75.4 % (42.0-75.0) H 12/02/16 05:56 Lymph % 11.9 % (21.0-51.0) L 12/02/16 05:56 [place] % 8.0 % (0.0-13.0) 12/02/16 05:56 Eos % 3.8 % (0.9-2.9) H 12/02/16 05:56 Baso % 0.9 % (0.2-1.0) 12/02/16 05:56 Neut # 6.9 x10^3/uL (2.2-4.8) H 12/02/16 05:56 Lymph # 1.1 X10^3/uL (1.3-2.9) L 12/02/16 05:56 [place] # 0.7 x10^3/uL (0.3-0.8) 12/02/16 05:56 Eos # 0.4 x10^3/uL (0.0-0.2) H 12/02/16 05:56 Baso # 0.1 X10^3/uL (0.0-0.1) 12/02/16 05:56 Absolute Nucleated RBC 0.0 /100WBC 12/02/16 05:56 Sodium 137 mmol/L (136-145) 12/02/16 05:56 Corrected Sodium 139 mmol/L (136-145) 12/02/16 05:56 Potassium 3.7 mmol/L (3.5-5.1) 12/02/16 05:56 Chloride 100 mmol/L (98-107) 12/02/16 05:56 Carbon Dioxide 30.6 mmol/L (21-32) 12/02/16 05:56 BUN 19 mg/dL (7-18) H 12/02/16 05:56 Creatinine 1.51 mg/dL (0.70-1.30) H 12/02/16 05:56 Est GFR (MDRD) Af Amer 59 (>60) 12/02/16 05:56 Est GFR (MDRD) Non-Af 49 (>60) L 12/02/16 05:56 Glucose 179 mg/dL (65-99) H 12/02/16 05:56 Lactic Acid 1.4 mmol/L (0.4-2.0) 12/02/16 05:56 Calcium 8.1 mg/dL (8.5-10.1) L 12/02/16 05:56 Corrected Calcium 9.1 mg/dL (8.5-10.1) 12/02/16 05:56 Total Bilirubin 0.40 mg/dL (0.2-1.0) 12/02/16 05:56 AST 38 Units/L (15-37) H 12/02/16 05:56 ALT 36 Units/L (12-78) 12/02/16 05:56 Alkaline Phosphatase 67 Units/L (46-116) 12/02/16 05:56 Total Protein 7.6 g/dL (6.4-8.2) 12/02/16 05:56 Albumin 2.7 g/dL (3.4-5.0) L 12/02/16 05:56 Globulin 4.9 g/dL (2.5-4.5) H 12/02/16 05:56 Albumin/Globulin Ratio 0.6 Ratio (1.1-2.1) L 12/02/16 05:56 - Diagnosis Discharge Problem: Abscess Cellulitis Qualifiers: Site of cellulitis: trunk Site of cellulitis of trunk: groin Qualified Code(s) : L03.314 - Cellulitis of groin - Discharge Plan Disposition: ADMITTED INPATIENT Condition: Stable - Follow ups/Referrals - Instructions
[2016-12-02 06:26] LABS: BASOPHILS # (AUTO) 0.1 X10^3/uL (0.0-0.1); BASOPHILS % (AUTO) 0.9 % (0.2-1.0); EOSINOPHILS # (AUTO) 0.4 x10^3/uL (0.0-0.2); EOSINOPHILS % (AUTO) 3.8 % (0.9-2.9); HEMATOCRIT 32.7 % (42.0-54.0); HEMOGLOBIN 11.3 g/dL (13.5-18.0); LYMPHOCYTES # (AUTO) 1.1 X10^3/uL (1.3-2.9); LYMPHOCYTES % (AUTO) 11.9 % (21.0-51.0); MEAN CORPUSCULAR HGB CONC 34.6 g/dL (33.0-35.0); MEAN CORPUSCULAR VOLUME 89.6 fL (80.0-100.0); MEAN PLATELET VOLUME 7.9 fL (7.4-11.0); MONOCYTES # (AUTO) 0.7 x10^3/uL (0.3-0.8); NEUTROPHILS # (AUTO) 6.9 x10^3/uL (2.2-4.8); NEUTROPHILS % (AUTO) 75.4 % (42.0-75.0); PLATELET COUNT 282 X10^3/uL (150.0-450.0); RED BLOOD COUNT 3.65 X10^6/uL (4.7-6.0); RED CELL DISTRIBUTION WIDTH 15.4 % (11.6-16.5); WHITE BLOOD COUNT 9.2 X10^3/uL (3.6-10.0)
[2016-12-02 06:32] LABS: ALBUMIN 2.7 g/dL (3.4-5.0); CALCIUM 8.1 mg/dL (8.5-10.1); CARBON DIOXIDE 30.6 mmol/L (21-32); COR CA(FOR HYPOALB) 9.1 mg/dL (8.5-10.1); CREATININE 1.51 mg/dL (0.70-1.30); TOTAL PROTEIN 7.6 g/dL (6.4-8.2)
[2016-12-02] MEDS ORDERED: NS 1000 ML 1,000 ML IV SCH (07:00)
[2016-12-02] MEDS ORDERED: VANCOMYCIN 1 GM PREMIX (ADDVANTAGE) 250 ML IV NR (07:00)
[2016-12-02] MEDS ORDERED: NS 1000 ML 1,000 ML ONE ×2 (07:05→12:10)
[2016-12-02] MEDS ORDERED: PHARMACY CONSULT - VANCOMYCIN XX SCH (10:00)
[2016-12-02] MEDS: NS 1000 ML 1,000 ML IV SCH ×2 (10:04→21:05)
[2016-12-02] MEDS: VANCOMYCIN 1 GM PREMIX (ADDVANTAGE) 250 ML IV SCH ×2 (10:05→21:00)
--- NOTE | 2016-12-02 10:33 | DR.H&P ---
H&P - History & Physical for Day of: H&P Date: 12/02/16 - Chief Complaint Chief Complaint: ABSCESS TO RIGHT GROIN - Allergies Allergies/Adverse Reactions: Allergies Allergy/AdvReac Type Severity Reaction Status Date / Time codeine Allergy Verified 12/02/16 07:29 iodine Allergy Verified 12/02/16 07:29 Sulfa (Sulfonamide Allergy Verified 12/02/16 07:29 Antibiotics) [SULFA] zolpidem [From Ambien] Allergy Verified 12/02/16 07:29 - History of Present Illness History of Present Illness: IS A 71 YEAR OLD PATIENT OF OURS WHO PRESENTED TO THE EMERGENCY ROOM WITH COMPLAINTS OF AN ABSCESS TO HIS RIGHT GROIN THAT IS DRAINING. PATIENT STATED THAT HE HAD VEINS STRIPPED IN HIS RIGHT LEG 8 DAYS AGO. PATIENT STATED THAT THE ABSCESS BEGAN DRAINING COPIOUS AMOUNTS OF PUS THIS MORNING. HE DENIES FEVER. ON EXAMINATION, REDNESS AND TENDERNESS WAS NOTED TO RIGHT GROIN. ON ARRIVAL TO ER, VITALS WERE 98.2, 72, 16, 98%, 112/ 61. LABS WERE OBTAINED. CBC WNL EXCEPT RBC 3.65, HGB 11.3, HCT 32.7. CMP WNL EXCEPT BUN 19, CREATININE 1.15, GFR 49, GLUCOSE 179, CALCIUM 8.1, ALBUMIN 2.7. WE ADMITTED PATIENT FOR FURTHER TREATMENT AND EVALUATION. WE STARTED HIM ON VANCOMYCIN 1GM IV Q12H, SLIDING SCALE INSULIN, AND NS @80ML.HR. ON MORNING ROUNDS, PATIENT WAS NOTED LYING IN BED, ALERT AND ORIENTED. WAS AT BEDSIDE. HE COMPLAINTED OF PAIN TO RIGHT GROIN. ABSCESS WAS NOTED TO RIGHT GROIN , DRAINING SEROSANGUINEOUS FLUID AT THIS TIME. WE WILL START PATIENT ON FORTAZ 1 GM IV Q8H. WE WILL CONSULT FOR POSSIBLE I&D OF WOUND. WE WILL RECHECK LABS AND FOLLOW UP WITH PATIENT IN AM. - Past Medical History Past Medical History: Anemia, Anxiety, Coronary Artery Disease, Diabetes, Dyslipidemia, GERD, Hypertension, Hypothyroidism, Kidney Stones, [place] Additional Medical History: Cataracts, Seasonal Allergies, Hearing Loss bilaterally, Diveritculosis, Constipation, Gastrointestinal Ulcer - Past Surgical History Surgical History: Abdominal Surgery, Ortho Surgery Additional Surgical History: Lumbar spine surgery due to herniated L4-L5 disk - Family History Family Medical History: Diabetes Mellitus, Cancer, [place], Coronary Artery Disease, Heart Failure - Social History Does patient currently use any type of tobacco product: No Have you used tobacco products in the last 12 months: No Type of Tobacco Use: None Does any household member use tobacco: No Alcohol Use: None - Medications Home Medications: Calcium Carbonate [Tums] 1 tab PO PRN PRN 12/02/16 [History Confirmed 12/02/16] Menthol [Stopain] 1 inh INH BID 12/02/16 [History Confirmed 12/02/16] - Review of Systems Constitutional: No Symptoms Reported. denies: See HPI, Fever, Chills, Sweats, Weakness, Malaise, Other Eyes: No Symptoms Reported. denies: See HPI, Pain, Vision Change, Conjunctivae Inflammation, Eyelid Inflammation, Redness, Other ENT: No Symptoms Reported. denies: See HPI, Ear Pain, Ear Discharge, Nose Pain , Nose Discharge, Nose Congestion, Mouth Pain, Mouth Swelling, Throat Pain, Throat Swelling, Other Respiratory: No Symptoms Reported. denies: See HPI, Cough, Dry, Shortness of Breath, Hemoptysis, SOB with Excertion, Pleuritic Pain, Sputum, Wheezing, Other Cardiovascular: No Symptoms Reported. denies: Chest Pain, See HPI, Palpitations , Orthopnea, Paroxysmal Noc. Dyspnea, Edema, Light Headedness, Other Gastrointestinal: No Symptoms Reported. denies: See HPI, Nausea, Vomiting, Abdominal Pain, Diarrhea, Constipation, Melena, Hematochezia, Other Genitourinary: No Symptoms Reported. denies: See HPI, Dysuria, Frequency, Incontinence, Hematuria, Retention, Other Musculoskeletal: No Symptoms Reported. denies: See HPI, Shoulder Pain, Arm Pain , Back Pain, Hand Pain, Leg Pain, Foot Pain, Neck Pain, Other Skin: See HPI, Wound Neurological: No Symptoms Reported. denies: See HPI, Weakness, Numbness, Incoordination, Change in Speech, Confusion, Seizures, Other Oriented: Normal. negative: Time, Person, Place, Not Oriented, Unable to test, Other Eyes: Normal. negative: Blurred Vision, Diplopia, Discharge, Pain, Redness, Photophobia, Other Ear: Normal. negative: Right, Left, Swelling, Ecchymosis, Hemotypanum, Abrasion , Laceration Nose: Normal. negative: Injected, Discharge, Blood, Other Throat: Normal. negative: Tonsillar Hypertrophy, Red, Exudate, Dry, Other Respiratory: Clear Throughout. negative: Diminished Throughout, Rhonchi Throughout, Rales Throughout, Wheezes Throughout, RUL Clear, RML Clear, RLL Clear, LANEY Clear, LML Clear, LLL Clear, RUL Diminished, RML Diminished, RLL Diminished, LANEY Diminished, LML Diminished, LLL Diminished, RUL Absent, RML Absent, RLL Absent, LANEY Absent, LML Absent, LLL Absent, RUL Rhonchi, RML Rhonchi , RLL Rhonchi, LANEY Rhonchi, LML Rhonchi, LLL Rhonchi, RUL Insp. Wheeze, RML Insp. Wheeze, RLL Insp. Wheeze, LANEY Insp.Wheeze, LML Insp.Wheeze, LLL Insp.Wheeze, RUL Exp. Wheeze, RML Exp. Wheeze, RLL Exp. Wheeze, LANEY Exp. Wheeze , LML Exp. Wheeze, LLL Exp. Wheeze, RUL Rales, RML Rales, RLL Rales, LANEY Rales, LML Rales, LLL Rales, RUL Rub, RML Rub, RLL Rub, LANEY Rub, LML Rub, LLL Rub, RUL Squeak, RML Squeak, RLL Squeak, LANEY Squeak, LML Squeak, LLL Squeak Skin: Red, Tender (ABSCESS AND CELLULITIS TO RIGHT GROIN ), Wound Musculoskeletal: Normal. negative: Right, Left, Shoulder, Clavicle, Arm, Elbow , Forearm, Wrist, Hand, Hip, Thigh, Knee, Leg, Ankle, Foot, Back:Thoracic, Back: Lumbar, Back:Midline, Back:Paraspinous, Pelvis, Swelling, Tender, Deformity, Pulse Deficit, Motor Deficit, Sensory Deficit, Instability, Crepitance Psychiatric: Anxiety Mood Description: Calm Affect: Normal Speech Pattern: Clear - Assessment/Plan (1) Abscess Status: Acute Plan: START ON FORTAZ 1GM IV Q8H, START VANCOMYCIN 1GM IV Q12H, CONSULT FOR I&D (2) Cellulitis Qualifiers: Site of cellulitis: trunk Site of cellulitis of extremity: S Site of cellulitis of trunk: groin Laterality: L Qualified Code(s): L03.314 - Cellulitis of groin Status: Acute Plan: START ON FORTAZ 1GM IV Q8H, START VANCOMYCIN 1GM IV Q12H, CONTINUE TO MONITOR
[2016-12-02] MEDS: FORTAZ or TAZICEF INJ 1 GM in NS 50 ML IV + SPIKE MINIBAG* 50 ML IV SCH ×3 (11:52→21:00)
--- NOTE | 2016-12-02 12:32 | RAD ---
HISTORY: Preop abscess drainage right groin Study: Chest one view Comparison: November 25, 2016 Findings: The patient is status post median sternotomy and CABG. The heart is upper limits normal in size. No congestive heart failure is noted. No acute alveolar infiltrates are identified. No pleural effusion s are present. The bony thorax is unremarkable. IMPRESSION: No significant abnormality identified Reported By:
[2016-12-02] MEDS ORDERED: NS IRRIGATION 1000 ML 1,000 ML IR ONE (13:28)
[2016-12-02] MEDS ORDERED: XYLOCAINE 1 % (PLAIN) ONE (13:38)
[2016-12-02] MEDS ORDERED: MARCAINE 0.25% WITH EPI IJ ONE (13:39)
[2016-12-02] MEDS ORDERED: HYDROGEN PEROXIDE 3% ONE (13:43)
[2016-12-02] MEDS ORDERED: DIPRIVAN VIAL ONE (15:45)
[2016-12-02] MEDS ORDERED: VERSED ONE (15:45)
[2016-12-02] MEDS: HumuLIN R SUBCUT PRN (20:59)
[2016-12-02] MEDS: NORCO 5/325 MG TAB PO PRN (23:02)
[2016-12-03] MEDS: FORTAZ or TAZICEF INJ 1 GM in NS 50 ML IV + SPIKE MINIBAG* 50 ML IV SCH ×3 (05:31→21:01)
[2016-12-03] MEDS: HumuLIN R SUBCUT PRN ×3 (05:36→16:16)
[2016-12-03 06:34] LABS: BASOPHILS # (AUTO) 0.1 X10^3/uL (0.0-0.1); EOSINOPHILS # (AUTO) 0.3 x10^3/uL (0.0-0.2); EOSINOPHILS % (AUTO) 4.8 % (0.9-2.9); HEMATOCRIT 29.7 % (42.0-54.0); HEMOGLOBIN 10.3 g/dL (13.5-18.0); LYMPHOCYTES % (AUTO) 14.6 % (21.0-51.0); MEAN CORPUSCULAR HGB CONC 34.6 g/dL (33.0-35.0); MEAN CORPUSCULAR VOLUME 89.6 fL (80.0-100.0); MEAN PLATELET VOLUME 7.7 fL (7.4-11.0); MONOCYTES # (AUTO) 0.7 x10^3/uL (0.3-0.8); MONOCYTES % (AUTO) 9.8 % (0.0-13.0); NEUTROPHILS # (AUTO) 4.9 x10^3/uL (2.2-4.8); NEUTROPHILS % (AUTO) 69.8 % (42.0-75.0); PLATELET COUNT 273 X10^3/uL (150.0-450.0); RED BLOOD COUNT 3.32 X10^6/uL (4.7-6.0); RED CELL DISTRIBUTION WIDTH 15.2 % (11.6-16.5); WHITE BLOOD COUNT 7.1 X10^3/uL (3.6-10.0)
[2016-12-03 06:37] LABS: ALANINE AMINOTRANSFERASE 33 Units/L (12-78); ALBUMIN 2.5 g/dL (3.4-5.0); ALKALINE PHOSPHATASE 65 Units/L (46-116); ASPARTATE AMINO TRANSFERASE 35 Units/L (15-37); BLOOD UREA NITROGEN 12 mg/dL (7-18); CALCIUM 7.5 mg/dL (8.5-10.1); CARBON DIOXIDE 31.3 mmol/L (21-32); CHLORIDE 102 mmol/L (98-107); COR CA(FOR HYPOALB) 8.7 mg/dL (8.5-10.1); COR NA(FOR HYPERGLY) 138 mmol/L (136-145); CREATININE 1.18 mg/dL (0.70-1.30); GLUCOSE 179 mg/dL (65-99); SODIUM 136 mmol/L (136-145); TOTAL PROTEIN 7.1 g/dL (6.4-8.2); eGFR BLACK RACES > 60 (>60); eGFR NON BLACK RACES > 60 (>60)
[2016-12-03] MEDS: NORCO 5/325 MG TAB PO PRN ×2 (06:55→13:07)
[2016-12-03] MEDS: VANCOMYCIN 1 GM PREMIX (ADDVANTAGE) 250 ML IV SCH ×2 (08:29→21:00)
[2016-12-03 09:19] VITALS: BMI 25.7
[2016-12-03] MEDS ORDERED: [UNRECOGNIZED DRUG - OTHER] PO PRN (10:06)
[2016-12-03] MEDS ORDERED: ANTIVERT TAB 25 MG PO PRN (10:06)
[2016-12-03] MEDS ORDERED: LEVSIN/MAALOX/LIDOC VISC PO PRN (10:06)
[2016-12-03] MEDS ORDERED: ACETAMINOPHEN PO PRN (10:06)
[2016-12-03] MEDS ORDERED: NORCO 5/325 MG TAB PO PRN (10:06)
[2016-12-03] MEDS ORDERED: DIAZEPAM 1 MG PO PRN (10:06)
[2016-12-03] MEDS ORDERED: BUTALBITAL PO PRN (10:06)
[2016-12-03] MEDS ORDERED: PROMETHAZINE HCL 25 MG PO PRN (10:06)
[2016-12-03] MEDS ORDERED: PATIENT'S HOME MEDICATION (Ondansetron [Zofran Odt] 4 MG) PO PRN (10:06)
[2016-12-03] MEDS ORDERED: FLUTICASONE PROPIONATE IN SCH (10:10)
[2016-12-03] MEDS ORDERED: SENNOSIDES 8.6 MG PO SCH (10:15)
[2016-12-03] MEDS ORDERED: MENTHOL INH SCH (10:15)
[2016-12-03] MEDS ORDERED: FOLIC ACID 400 MCG PO SCH (10:15)
[2016-12-03] MEDS ORDERED: VALIUM PO PRN (10:37)
[2016-12-03] MEDS ORDERED: PHENERGAN TAB 25 MG PO PRN (10:39)
[2016-12-03] MEDS ORDERED: ZOFRAN TAB 4 MG PO PRN (10:39)
--- NOTE | 2016-12-03 10:48 | PCM.PROG ---
Progress Note - Progress Note for Day of Date: 12/03/16 - Subjective Subjective: WAS ADMITTED TO US YESTERDAY WITH RIGHT GROIN ABSCESS AND CELLULITIS. HE WAS TAKEN TO THE OR YESTERDAY FOR I&D OF ABSCESS BY . PATIENT IS AWAKE AND ORIENTED IN BED ON MORNING ROUNDS. HE COMPLAINS OF RIGHT GROIN PAIN AND BURNING AT THIS TIME. WOUND IS NOTED TO BE DRAINING SEROSANGUINEOUS FLUID. LUNGS ARE CLEAR ON AUSCULTATION. VITALS THIS AM ARE 98.4 , 64, 20, 98, 123/60. CBC WNL EXCEPT RBC 3.32, HGB 10.3, HCT 29.7. CMP WNL EXCEPT GLUCOSE 179, ALBUMIN 2.5, CALCIUM 7.5. BLOOD CULTURES AND WOUND CULTURES ARE PENDING. WE WILL CONTINUE CURRENT PLAN OF CARE AND RECHECK LABS AND FOLLOW UP WITH PATIENT IN AM. - Past Medical Family Social History Past Med/Fam/Surg Hx: No changes since H&P Allergies: Allergies codeine Allergy (Verified 12/02/16 07:29) iodine Allergy (Verified 12/02/16 07:29) Sulfa (Sulfonamide Antibiotics) [SULFA] Allergy (Verified 12/02/16 07:29) zolpidem [From Ambien] Allergy (Verified 12/02/16 07:29) - Review of Systems ROS: No change since H&P - Vital Signs and I&O's Vital Signs: Temperature 98.4 F Pulse Rate [Right Brachial] 64 Respiratory Rate 20 Blood Pressure [Right Arm] 123/60 O2 Sat by Pulse Oximetry 98 Intake and Output: Intake & Output 11/30/16 12/01/16 12/02/16 12/03/16 11:59 11:59 11:59 11:59 Intake Total 2175 Output Total 2275 Balance -100 - Physical Exam Oriented: Normal. negative: Time, Person, Place, Not Oriented, Unable to test, Other Eyes: Normal. negative: Blurred Vision, Diplopia, Discharge, Pain, Redness, Photophobia, Other Ear: Normal. negative: Right, Left, Swelling, Ecchymosis, Hemotypanum, Abrasion , Laceration Nose: Normal. negative: Injected, Discharge, Blood, Other Throat: Normal. negative: Tonsillar Hypertrophy, Red, Exudate, Dry, Other Respiratory: Normal. negative: Right, Left, Generalized, Superior, Inferior, Diminished, Wheezes, Rales, Rhonchi, OTHER Cardiovascular: Normal. negative: Tachycardia, Bradycardia, Irregular, S3, S4, Systolic, Diastolic, Murmur, Edema, Other : Normal. negative: Dysuria, Hematuria, Frequency, Discharge, Testicular Pain , Bleeding, , Other Auscultation: Bowel Sounds: Normal. negative: Bruit, Absent, Increased, Decreased, High Pitched, Other Palpation: Normal Tenderness: Normal. negative: Diffuse, RUQ, RLQ, LUQ, LLQ, Epigastric, Periumbilical, Suprapubic, Mild, Moderate, Severe, Rebound, Guarding, Rigidity, Other Skin: Red, Tender (ABSCESS AND CELLULITIS TO RIGHT GROIN ), Wound. negative: Normal, Decreased Turgur, Rash, Papular, Macular, Maculopapular, Vesicular, Pustular, Petechial, Hot, Diaphoresis, Bruising, Ecchymosis, Other Musculoskeletal: Normal. negative: Right, Left, Shoulder, Clavicle, Arm, Elbow , Forearm, Wrist, Hand, Hip, Thigh, Knee, Leg, Ankle, Foot, Back:Thoracic, Back: Lumbar, Back:Midline, Back:Paraspinous, Pelvis, Swelling, Tender, Deformity, Pulse Deficit, Motor Deficit, Sensory Deficit, Instability, Crepitance Psychiatric: Anxiety Mood Description: Calm. negative: Angry, Apathetic, Depressed, Fearful, Flat, Happy, Hostile, Sad, Suspicious, Withdrawn, Anxious, Appropriate, Labile Affect: Normal. negative: Angry, Anxious, Depressed, Flat, Hysterical, Quiet, Violent Speech Pattern: Clear, Appropriate. negative: Unclear, Inappropriate, Delayed, Slurred, Excessive, Aphasic, Artificially Ventilated - Laboratory and Diagnostics Result Diagrams: 12/03/16 05:54 12/03/16 05:54 Labs: 12/02/16 14:08 Groin Gram Stain - Final 12/02/16 14:08 Groin Wound Culture - Preliminary Laboratory WBC 7.1 X10^3/uL (3.6-10.0) 12/03/16 05:54 RBC 3.32 X10^6/uL (4.7-6.0) L 12/03/16 05:54 Hgb 10.3 g/dL (13.5-18.0) L 12/03/16 05:54 Hct 29.7 % (42.0-54.0) L 12/03/16 05:54 MCV 89.6 fL (80.0-100.0) 12/03/16 05:54 MCH 31.0 pg (27.0-34.0) 12/03/16 05:54 MCHC 34.6 g/dL (33.0-35.0) 12/03/16 05:54 RDW 15.2 % (11.6-16.5) 12/03/16 05:54 Plt Count 273 X10^3/uL (150.0-450.0) 12/03/16 05:54 MPV 7.7 fL (7.4-11.0) 12/03/16 05:54 Neut % 69.8 % (42.0-75.0) 12/03/16 05:54 Lymph % 14.6 % (21.0-51.0) L 12/03/16 05:54 [place] % 9.8 % (0.0-13.0) 12/03/16 05:54 Eos % 4.8 % (0.9-2.9) H 12/03/16 05:54 Baso % 1.0 % (0.2-1.0) 12/03/16 05:54 Neut # 4.9 x10^3/uL (2.2-4.8) H 12/03/16 05:54 Lymph # 1.0 X10^3/uL (1.3-2.9) L 12/03/16 05:54 [place] # 0.7 x10^3/uL (0.3-0.8) 12/03/16 05:54 Eos # 0.3 x10^3/uL (0.0-0.2) H 12/03/16 05:54 Baso # 0.1 X10^3/uL (0.0-0.1) 12/03/16 05:54 Absolute Nucleated RBC 0.0 /100WBC 12/03/16 05:54 INR Target Range - 12/02/16 11:28 INR 1.10 (0.8-1.3) 12/02/16 11:28 PTT 31.1 SECONDS (22.9-36.5) 12/02/16 11:28 PTT Comment - 12/02/16 11:28 Sodium 136 mmol/L (136-145) 12/03/16 05:54 Corrected Sodium 138 mmol/L (136-145) 12/03/16 05:54 Potassium 4.2 mmol/L (3.5-5.1) 12/03/16 05:54 Chloride 102 mmol/L (98-107) 12/03/16 05:54 Carbon Dioxide 31.3 mmol/L (21-32) 12/03/16 05:54 BUN 12 mg/dL (7-18) 12/03/16 05:54 Creatinine 1.18 mg/dL (0.70-1.30) 12/03/16 05:54 Est GFR (MDRD) Af Amer > 60 (>60) 12/03/16 05:54 Est GFR (MDRD) Non-Af > 60 (>60) 12/03/16 05:54 Glucose 179 mg/dL (65-99) H 12/03/16 05:54 Lactic Acid 1.4 mmol/L (0.4-2.0) 12/02/16 05:56 Calcium 7.5 mg/dL (8.5-10.1) L 12/03/16 05:54 Corrected Calcium 8.7 mg/dL (8.5-10.1) 12/03/16 05:54 Total Bilirubin 0.40 mg/dL (0.2-1.0) 12/03/16 05:54 AST 35 Units/L (15-37) 12/03/16 05:54 ALT 33 Units/L (12-78) 12/03/16 05:54 Alkaline Phosphatase 65 Units/L (46-116) 12/03/16 05:54 Total Protein 7.1 g/dL (6.4-8.2) 12/03/16 05:54 Albumin 2.5 g/dL (3.4-5.0) L 12/03/16 05:54 Globulin 4.6 g/dL (2.5-4.5) H 12/03/16 05:54 Albumin/Globulin Ratio 0.5 Ratio (1.1-2.1) L 12/03/16 05:54 - Plan (1) Abscess Status: Acute Plan: START ON FORTAZ 1GM IV Q8H, START VANCOMYCIN 1GM IV Q12H, CONSULT FOR I&D (2) Cellulitis Status: Acute Qualifiers: Site of cellulitis: trunk Site of cellulitis of extremity: S Site of cellulitis of trunk: groin Laterality: L Qualified Code(s): L03.314 - Cellulitis of groin Plan: START ON FORTAZ 1GM IV Q8H, START VANCOMYCIN 1GM IV Q12H, CONTINUE TO MONITOR
[2016-12-03] MEDS ORDERED: TEMOVATE SOLN TOP SCH (11:00)
[2016-12-03] MEDS: FERROUS FUMARATE PO SCH (11:18)
[2016-12-03] MEDS ORDERED: GLUCOPHAGE ONE ×2 (11:24→20:29)
[2016-12-03] MEDS: PLAVIX PO SCH (11:36)
[2016-12-03] MEDS: NS 1000 ML 1,000 ML IV SCH ×2 (11:36→22:35)
[2016-12-03] MEDS: ARICEPT TAB 5 MG PO SCH (11:36)
[2016-12-03] MEDS: COLACE CAP 100 MG PO SCH (11:36)
[2016-12-03] MEDS: ASPIRIN PO SCH (11:37)
[2016-12-03] MEDS: GLUCOPHAGE PO SCH ×2 (11:37→20:36)
[2016-12-03] MEDS: TOPROL XL PO SCH (11:37)
[2016-12-03] MEDS: ZOLOFT PO SCH (11:37)
[2016-12-03] MEDS: PROTONIX TAB 40 MG PO SCH (11:37)
[2016-12-03] MEDS: ZYLOPRIM PO SCH (11:38)
[2016-12-03] MEDS ORDERED: LEVALBUTEROL IN SCH (14:00)
[2016-12-03] MEDS: SYNTHROID 25 mcg TAB PO SCH (16:20)
[2016-12-03] MEDS: LIPITOR TAB 40 MG PO SCH (20:36)
[2016-12-03] MEDS: REQUIP PO SCH (20:36)
[2016-12-03] MEDS: INSULIN GLARGINE HUM REC ANLOG 52 UNIT SC SCH (20:36)
[2016-12-03] MEDS: PEPCID TAB 20 MG PO SCH (20:36)
[2016-12-03] MEDS: [UNRECOGNIZED DRUG - OTHER] SC SCH (20:36)
[2016-12-03] MEDS: NEURONTIN CAP 300 MG PO SCH (20:36)
[2016-12-03] MEDS ORDERED: FAMOTIDINE 40 MG PO SCH (21:00)
[2016-12-03] MEDS: NORVASC TAB 5 MG PO SCH (21:00)
[2016-12-03 21:08] LABS: CREATININE 1.25 mg/dL (0.70-1.30); VANCOMYCIN,TROUGH 14.2 ug/mL (15-20)
[2016-12-04 05:23] LABS: ALANINE AMINOTRANSFERASE 28 Units/L (12-78); ALBUMIN 2.4 g/dL (3.4-5.0); ALKALINE PHOSPHATASE 63 Units/L (46-116); ASPARTATE AMINO TRANSFERASE 29 Units/L (15-37); BLOOD UREA NITROGEN 9 mg/dL (7-18); CALCIUM 7.8 mg/dL (8.5-10.1); CHLORIDE 105 mmol/L (98-107); COR CA(FOR HYPOALB) 9.1 mg/dL (8.5-10.1); COR NA(FOR HYPERGLY) 140 mmol/L (136-145); CREATININE 1.15 mg/dL (0.70-1.30); GLUCOSE 169 mg/dL (65-99); SODIUM 138 mmol/L (136-145); eGFR BLACK RACES > 60 (>60); eGFR NON BLACK RACES > 60 (>60)
[2016-12-04 05:31] LABS: BASOPHILS # (AUTO) 0.1 X10^3/uL (0.0-0.1); EOSINOPHILS # (AUTO) 0.5 x10^3/uL (0.0-0.2); EOSINOPHILS % (AUTO) 8.6 % (0.9-2.9); HEMATOCRIT 29.8 % (42.0-54.0); HEMOGLOBIN 10.3 g/dL (13.5-18.0); LYMPHOCYTES # (AUTO) 1.4 X10^3/uL (1.3-2.9); LYMPHOCYTES % (AUTO) 25.8 % (21.0-51.0); MEAN CORPUSCULAR HGB CONC 34.5 g/dL (33.0-35.0); MEAN CORPUSCULAR VOLUME 90.1 fL (80.0-100.0); MEAN PLATELET VOLUME 7.7 fL (7.4-11.0); MONOCYTES # (AUTO) 0.6 x10^3/uL (0.3-0.8); MONOCYTES % (AUTO) 10.6 % (0.0-13.0); NEUTROPHILS # (AUTO) 2.9 x10^3/uL (2.2-4.8); PLATELET COUNT 272 X10^3/uL (150.0-450.0); RED BLOOD COUNT 3.31 X10^6/uL (4.7-6.0); RED CELL DISTRIBUTION WIDTH 14.9 % (11.6-16.5); WHITE BLOOD COUNT 5.4 X10^3/uL (3.6-10.0)
[2016-12-04] MEDS: FORTAZ or TAZICEF INJ 1 GM in NS 50 ML IV + SPIKE MINIBAG* 50 ML IV SCH ×3 (05:43→21:38)
[2016-12-04] MEDS: HumuLIN R SUBCUT PRN ×2 (05:43→16:25)
[2016-12-04 05:56] LABS: PLATELET MORPHOLOGY COMMENT NORMAL (NORMAL)
[2016-12-04] MEDS ORDERED: GLUCOPHAGE ONE ×2 (07:40→20:26)
[2016-12-04] MEDS: NORCO 5/325 MG TAB PO PRN (07:54)
[2016-12-04] MEDS: ASPIRIN PO SCH (08:04)
[2016-12-04] MEDS: COLACE CAP 100 MG PO SCH (08:04)
[2016-12-04] MEDS: FERROUS FUMARATE PO SCH (08:04)
[2016-12-04] MEDS: ARICEPT TAB 5 MG PO SCH (08:04)
[2016-12-04] MEDS: PLAVIX PO SCH (08:05)
[2016-12-04] MEDS: FLONASE NASAL SPRAY ENOSTRIL SCH (08:05)
[2016-12-04] MEDS: PROTONIX TAB 40 MG PO SCH (08:05)
[2016-12-04] MEDS: NEURONTIN CAP 300 MG PO SCH ×2 (08:05→21:38)
[2016-12-04] MEDS: GLUCOPHAGE PO SCH ×2 (08:05→21:39)
[2016-12-04] MEDS: FOLIC ACID TAB 1 MG PO SCH (08:05)
[2016-12-04] MEDS: ZYLOPRIM PO SCH (08:06)
[2016-12-04] MEDS: TOPROL XL PO SCH (08:06)
[2016-12-04] MEDS: SENOKOT PO SCH (08:06)
[2016-12-04] MEDS: VANCOMYCIN 1 GM PREMIX (ADDVANTAGE) 250 ML IV SCH ×2 (08:06→21:37)
[2016-12-04] MEDS: ZOLOFT PO SCH (08:06)
--- NOTE | 2016-12-04 10:43 | PCM.PROG ---
Progress Note - Progress Note for Day of Date: 12/04/16 - Subjective Subjective: WAS ADMITTED TO US WITH RIGHT GROIN ABSCESS AND CELLULITIS. I&D OF ABSCESS WAS DONE BY . PATIENT IS AWAKE AND ORIENTED IN BED ON MORNING ROUNDS. PATIENT VERBALIZED IMPROVEMENT IN PAIN IN GROIN AREA. WOUND IS NOTED TO BE DRAINING LESS THAN PREVIOUSLY NOTED. LUNGS ARE CLEAR ON AUSCULTATION. VITALS THIS AM ARE 97.5,61,18,100%,154/68. CBC WNL EXCEPT RBC 3.31 , HGB 10.3, HCT 29.8. CMP WNL EXCEPT GLUCOSE 169, ALBUMIN 2.4, CALCIUM 7.8. BLOOD CULTURES AND WOUND CULTURES ARE PENDING. PATIENT WILL NEED TO BE SET UP WITH HOME HEALTH FOR WOUND CARE AND ANTIBIOTIC THERAPY. WE WILL CONTINUE CURRENT PLAN OF CARE AND RECHECK LABS AND FOLLOW UP WITH PATIENT IN AM. - Past Medical Family Social History Past Med/Fam/Surg Hx: No changes since H&P Allergies: Allergies codeine Allergy (Verified 12/02/16 07:29) iodine Allergy (Verified 12/02/16 07:29) Sulfa (Sulfonamide Antibiotics) [SULFA] Allergy (Verified 12/02/16 07:29) zolpidem [From Ambien] Allergy (Verified 12/02/16 07:29) - Review of Systems ROS: No change since H&P - Vital Signs and I&O's Vital Signs: Temperature 97.5 F Pulse Rate [Right Brachial] 61 Respiratory Rate 18 Blood Pressure [Right Arm] 154/68 O2 Sat by Pulse Oximetry 100 Intake and Output: Intake & Output 12/01/16 12/02/16 12/03/16 12/04/16 11:59 11:59 11:59 11:59 Intake Total 2175 3050 Output Total 2275 3750 Balance -100 -700 - Physical Exam Oriented: Normal. negative: Time, Person, Place, Not Oriented, Unable to test, Other Eyes: Normal. negative: Blurred Vision, Diplopia, Discharge, Pain, Redness, Photophobia, Other Ear: Normal. negative: Right, Left, Swelling, Ecchymosis, Hemotypanum, Abrasion , Laceration Nose: Normal. negative: Injected, Discharge, Blood, Other Throat: Normal. negative: Tonsillar Hypertrophy, Red, Exudate, Dry, Other Respiratory: Normal. negative: Right, Left, Generalized, Superior, Inferior, Diminished, Wheezes, Rales, Rhonchi, OTHER Cardiovascular: Normal. negative: Tachycardia, Bradycardia, Irregular, S3, S4, Systolic, Diastolic, Murmur, Edema, Other : Normal. negative: Dysuria, Hematuria, Frequency, Discharge, Testicular Pain , Bleeding, , Other Auscultation: Bowel Sounds: Normal. negative: Bruit, Absent, Increased, Decreased, High Pitched, Other Tenderness: Normal. negative: Diffuse, RUQ, RLQ, LUQ, LLQ, Epigastric, Periumbilical, Suprapubic, Mild, Moderate, Severe, Rebound, Guarding, Rigidity, Other Skin: Red, Tender (ABSCESS AND CELLULITIS TO RIGHT GROIN ), Wound. negative: Normal, Decreased Turgur, Rash, Papular, Macular, Maculopapular, Vesicular, Pustular, Petechial, Hot, Diaphoresis, Bruising, Ecchymosis, Other Musculoskeletal: Normal. negative: Right, Left, Shoulder, Clavicle, Arm, Elbow , Forearm, Wrist, Hand, Hip, Thigh, Knee, Leg, Ankle, Foot, Back:Thoracic, Back: Lumbar, Back:Midline, Back:Paraspinous, Pelvis, Swelling, Tender, Deformity, Pulse Deficit, Motor Deficit, Sensory Deficit, Instability, Crepitance Psychiatric: Anxiety Mood Description: Calm. negative: Angry, Apathetic, Depressed, Fearful, Flat, Happy, Hostile, Sad, Suspicious, Withdrawn, Anxious, Appropriate, Labile Affect: Normal. negative: Angry, Anxious, Depressed, Flat, Hysterical, Quiet, Violent Speech Pattern: Clear, Appropriate - Laboratory and Diagnostics Result Diagrams: 12/04/16 04:40 12/04/16 04:40 Labs: 12/02/16 14:08 Groin Gram Stain - Final 12/02/16 14:08 Groin Wound Culture - Final Strep Agalactiae - (Group B) Laboratory WBC 5.4 X10^3/uL (3.6-10.0) 12/04/16 04:40 RBC 3.31 X10^6/uL (4.7-6.0) L 12/04/16 04:40 Hgb 10.3 g/dL (13.5-18.0) L 12/04/16 04:40 Hct 29.8 % (42.0-54.0) L 12/04/16 04:40 MCV 90.1 fL (80.0-100.0) 12/04/16 04:40 MCH 31.0 pg (27.0-34.0) 12/04/16 04:40 MCHC 34.5 g/dL (33.0-35.0) 12/04/16 04:40 RDW 14.9 % (11.6-16.5) 12/04/16 04:40 Plt Count 272 X10^3/uL (150.0-450.0) 12/04/16 04:40 Plt Count Comment Adequate (ADEQUATE) 12/04/16 04:40 MPV 7.7 fL (7.4-11.0) 12/04/16 04:40 Neut % 54.0 % (42.0-75.0) 12/04/16 04:40 Lymph % 25.8 % (21.0-51.0) 12/04/16 04:40 [place] % 10.6 % (0.0-13.0) 12/04/16 04:40 Eos % 8.6 % (0.9-2.9) H 12/04/16 04:40 Baso % 1.0 % (0.2-1.0) 12/04/16 04:40 Neut # 2.9 x10^3/uL (2.2-4.8) 12/04/16 04:40 Lymph # 1.4 X10^3/uL (1.3-2.9) 12/04/16 04:40 [place] # 0.6 x10^3/uL (0.3-0.8) 12/04/16 04:40 Eos # 0.5 x10^3/uL (0.0-0.2) H 12/04/16 04:40 Baso # 0.1 X10^3/uL (0.0-0.1) 12/04/16 04:40 Absolute Nucleated RBC 0.2 /100WBC 12/04/16 04:40 Total Counted 100 12/04/16 04:40 Neutrophils % (Manual) 56 % (39-76) 12/04/16 04:40 Lymphocytes % (Manual) 30 % (13-43) 12/04/16 04:40 Monocytes % (Manual) 6 % (4-9) 12/04/16 04:40 Eosinophils % (Manual) 8 % (0-6) H 12/04/16 04:40 Plt Morphology Comment Normal (NORMAL) 12/04/16 04:40 RBC Morphology Normal (NORMAL) 12/04/16 04:40 INR Target Range - 12/02/16 11:28 INR 1.10 (0.8-1.3) 12/02/16 11:28 PTT 31.1 SECONDS (22.9-36.5) 12/02/16 11:28 PTT Comment - 12/02/16 11:28 Sodium 138 mmol/L (136-145) 12/04/16 04:40 Corrected Sodium 140 mmol/L (136-145) 12/04/16 04:40 Potassium 4.2 mmol/L (3.5-5.1) 12/04/16 04:40 Chloride 105 mmol/L (98-107) 12/04/16 04:40 Carbon Dioxide 29.0 mmol/L (21-32) 12/04/16 04:40 BUN 9 mg/dL (7-18) 12/04/16 04:40 Creatinine 1.15 mg/dL (0.70-1.30) 12/04/16 04:40 Est GFR (MDRD) Af Amer > 60 (>60) 12/04/16 04:40 Est GFR (MDRD) Non-Af > 60 (>60) 12/04/16 04:40 Glucose 169 mg/dL (65-99) H 12/04/16 04:40 Lactic Acid 1.4 mmol/L (0.4-2.0) 12/02/16 05:56 Calcium 7.8 mg/dL (8.5-10.1) L 12/04/16 04:40 Corrected Calcium 9.1 mg/dL (8.5-10.1) 12/04/16 04:40 Total Bilirubin 0.30 mg/dL (0.2-1.0) 12/04/16 04:40 AST 29 Units/L (15-37) 12/04/16 04:40 ALT 28 Units/L (12-78) 12/04/16 04:40 Alkaline Phosphatase 63 Units/L (46-116) 12/04/16 04:40 Total Protein 7.0 g/dL (6.4-8.2) 12/04/16 04:40 Albumin 2.4 g/dL (3.4-5.0) L 12/04/16 04:40 Globulin 4.6 g/dL (2.5-4.5) H 12/04/16 04:40 Albumin/Globulin Ratio 0.5 Ratio (1.1-2.1) L 12/04/16 04:40 Vancomycin Trough 14.2 ug/mL (15-20) L 12/03/16 20:35 - Plan (1) Abscess Status: Acute Plan: START ON FORTAZ 1GM IV Q8H, START VANCOMYCIN 1GM IV Q12H, CONSULT FOR I&D (2) Cellulitis Status: Acute Qualifiers: Site of cellulitis: trunk Site of cellulitis of extremity: S Site of cellulitis of trunk: groin Laterality: L Qualified Code(s): L03.314 - Cellulitis of groin Plan: START ON FORTAZ 1GM IV Q8H, START VANCOMYCIN 1GM IV Q12H, CONTINUE TO MONITOR
[2016-12-04] MEDS: NS 1000 ML 1,000 ML IV SCH (11:44)
[2016-12-04] MEDS: SYNTHROID 25 mcg TAB PO SCH (16:25)
[2016-12-04] MEDS: LIPITOR TAB 40 MG PO SCH (21:38)
[2016-12-04] MEDS: REQUIP PO SCH (21:38)
[2016-12-04] MEDS: PEPCID TAB 20 MG PO SCH (21:38)
[2016-12-04] MEDS: NORVASC TAB 5 MG PO SCH (21:39)
[2016-12-04] MEDS: INSULIN GLARGINE HUM REC ANLOG 52 UNIT SC SCH (21:40)
[2016-12-04] MEDS: [UNRECOGNIZED DRUG - OTHER] SC SCH (21:40)
[2016-12-05 04:48] LABS: BASOPHILS # (AUTO) 0.1 X10^3/uL (0.0-0.1); BASOPHILS % (AUTO) 1.3 % (0.2-1.0); EOSINOPHILS # (AUTO) 0.4 x10^3/uL (0.0-0.2); EOSINOPHILS % (AUTO) 8.2 % (0.9-2.9); HEMATOCRIT 29.5 % (42.0-54.0); HEMOGLOBIN 10.1 g/dL (13.5-18.0); LYMPHOCYTES # (AUTO) 1.5 X10^3/uL (1.3-2.9); LYMPHOCYTES % (AUTO) 28.2 % (21.0-51.0); MEAN CORPUSCULAR HEMOGLOBIN 31.1 pg (27.0-34.0); MEAN CORPUSCULAR HGB CONC 34.3 g/dL (33.0-35.0); MEAN CORPUSCULAR VOLUME 90.6 fL (80.0-100.0); MEAN PLATELET VOLUME 7.4 fL (7.4-11.0); MONOCYTES # (AUTO) 0.4 x10^3/uL (0.3-0.8); MONOCYTES % (AUTO) 7.6 % (0.0-13.0); NEUTROPHILS # (AUTO) 2.9 x10^3/uL (2.2-4.8); NEUTROPHILS % (AUTO) 54.7 % (42.0-75.0); PLATELET COUNT 265 X10^3/uL (150.0-450.0); RED BLOOD COUNT 3.25 X10^6/uL (4.7-6.0); WHITE BLOOD COUNT 5.3 X10^3/uL (3.6-10.0)
[2016-12-05 04:51] LABS: ALANINE AMINOTRANSFERASE 26 Units/L (12-78); ALBUMIN 2.4 g/dL (3.4-5.0); ALKALINE PHOSPHATASE 59 Units/L (46-116); ASPARTATE AMINO TRANSFERASE 28 Units/L (15-37); BLOOD UREA NITROGEN 10 mg/dL (7-18); CALCIUM 7.7 mg/dL (8.5-10.1); CHLORIDE 105 mmol/L (98-107); COR NA(FOR HYPERGLY) 140 mmol/L (136-145); CREATININE 1.21 mg/dL (0.70-1.30); GLUCOSE 163 mg/dL (65-99); SODIUM 138 mmol/L (136-145); TOTAL PROTEIN 6.9 g/dL (6.4-8.2); eGFR BLACK RACES > 60 (>60); eGFR NON BLACK RACES > 60 (>60)
[2016-12-05 05:46] LABS: PLATELET MORPHOLOGY COMMENT NORMAL (NORMAL)
[2016-12-05] MEDS: NS 1000 ML 1,000 ML IV SCH (05:47)
[2016-12-05] MEDS: FORTAZ or TAZICEF INJ 1 GM in NS 50 ML IV + SPIKE MINIBAG* 50 ML IV SCH (05:47)
[2016-12-05] MEDS ORDERED: GLUCOPHAGE ONE (08:48)
[2016-12-05] MEDS: XOPENEX 1.25 MG/3 ML NEBULE NEB SCH ×4 (08:58→15:28)
[2016-12-05] MEDS: ASPIRIN PO SCH (09:02)
[2016-12-05] MEDS: FLONASE NASAL SPRAY ENOSTRIL SCH (09:02)
[2016-12-05] MEDS: ZOLOFT PO SCH (09:03)
[2016-12-05] MEDS: TOPROL XL PO SCH (09:03)
[2016-12-05] MEDS: ARICEPT TAB 5 MG PO SCH (09:03)
[2016-12-05] MEDS: NEURONTIN CAP 300 MG PO SCH (09:03)
[2016-12-05] MEDS: PLAVIX PO SCH (09:04)
[2016-12-05] MEDS: GLUCOPHAGE PO SCH (09:04)
[2016-12-05] MEDS: COLACE CAP 100 MG PO SCH (09:05)
[2016-12-05] MEDS: FERROUS FUMARATE PO SCH (09:05)
[2016-12-05] MEDS: FOLIC ACID TAB 1 MG PO SCH (09:05)
[2016-12-05] MEDS: SENOKOT PO SCH (09:07)
[2016-12-05] MEDS: PROTONIX TAB 40 MG PO SCH (09:12)
[2016-12-05] MEDS: ZYLOPRIM PO SCH (09:12)
[2016-12-05 10:53] LABS: CREATININE 1.26 mg/dL (0.70-1.30); VANCOMYCIN,TROUGH 20.7 ug/mL (15-20)
[2016-12-05] MEDS ORDERED: XYLOCAINE 1 % (PLAIN) ONE (11:11)
--- NOTE | 2016-12-05 12:34 | RAD ---
HISTORY: PICC placement Study: Chest one view Comparison: December 02, 2016 Findings: There is a right-sided PICC line in place. It is abnormally coil in the right axilla with the tip ex tending only to the mid right subclavian vein. Retraction an adjustment is recommended. The heart is enlarged. The ihsan are normal. The lung ball are clear. IMPRESSION: Abnormal coiling of the right PICC line in the right axilla and subclavian vein as described. Retrac tion and adjustment will be required. 2. Lungs clear Reported By:
[2016-12-05 12:45] VITALS: BP 169/71
--- NOTE | 2016-12-05 14:23 | RAD ---
HISTORY: PICC placement. Study: Portable chest. Comparison: Chest x-ray dated December 05, 2016 at 12:28 p.m. Findings: Interval readjustment of a right PICC line whose tip overlies the expected area the right cavoatrial junction. No obvious pneumothorax. The cardiac silhouette appears unchanged. Postsurgical changes s tatus post CABG. The lungs are otherwise clear. The cardiac silhouette appears unchanged. IMPRESSION: 1. No acute cardiopulmonary disease. 2. Right PICC line that appears to be in good position. Reported By:
--- NOTE | 2016-12-05 15:24 | DR.UPDATE ---
H&P Update History and Physical Update: History and Physical reviewed and patient examined. Changes noted: NO Yes with the following:agree with H&P from Dr Stauffer. Will proceed with PICC insertion for long-term antibiotic therapy Procedures (ALL) - Central Line Placement PCM.CLCO: written consent Time out performed: Yes Patient placed pm monitor/pulse ox: Yes MD prep: mask, gown, gloves, other Centrial line prep: chlorhexidine scrub Local anesthsia used: lidocane 1% Ultrasound used for placement: Yes Central line lumen ininserted: double (5fr power picc) Post procedure: good blood return, all ports aspirated, flushed,capped, sterile dressing applied Post procedure xray: tip oc catheter in good position, no pneumothorax seen, other Patient tolerated procedure: Yes Complications: none (initial cxr showed cateter coiled in right subclavian vein. Pt was brought down to the procedure room where flouroscopy could be utilized. the tegaderm was removed and the entire RUE and port was prepped with chlorahexadine and sterile drapes applied. the stylet was then advanced until resistance met. under live flouro, the catheter was slowly withdrawn while advencing the stylet until the coil was removed. the stylet and catheter weere then simultaneously advanced under flouro until a good postion in the svc was reached. a biopatch was applied and a bioocclusve dressing applied. cxr confirmed good placement.)
[2016-12-05] MEDS: SYNTHROID 25 mcg TAB PO SCH (16:24)
[2016-12-06] MEDS ORDERED: LEVAQUIN PREMIX IV 750 MG 750 MG/150 ML BAG IV SCH (09:00)
== END 2016-12-05 17:35 | disposition home or self-care (01) | DRG 989 ==
LOC: ER 04:59 → MED/SURG 07:17 → OBSVTOIN 07:17 → UNDODISIN 12-03 17:04
PROVIDERS: ADMIT Internal Medicine; ATTEND Internal Medicine
PROC: 0Y950ZX Drainage of Right Inguinal Region, Open Approach, Diagnostic (ICD-10-PCS; principal; 2016-12-02 12:00)
PROC: 05H533Z Insertion of Infusion Device into Right Subclavian Vein, Percutaneous Approach (ICD-10-PCS; 2016-12-05)
PROC: B51MZZA Fluoroscopy of Right Upper Extremity Veins, Guidance (ICD-10-PCS; 2016-12-05)
DX: L03.314 Cellulitis of groin (principal); L02.214 Cutaneous abscess of groin; I25.10 Atherosclerotic heart disease of native coronary artery without angina pectoris; E11.65 Type 2 diabetes mellitus with hyperglycemia; E78.2 Mixed hyperlipidemia; K21.9 Gastro-esophageal reflux disease without esophagitis; I10 Essential (primary) hypertension; E03.8 Other specified hypothyroidism; F41.8 Other specified anxiety disorders; B95.1 Streptococcus, group B, as the cause of diseases classified elsewhere; I87.2 Venous insufficiency (chronic) (peripheral); Z79.01 Long term (current) use of anticoagulants; Z98.890 Other specified postprocedural states
CPT/HCPCS: 36415; 71010; 80053; 80202; 82565; 83605; 85025; 85610; 85730; 87040; 87070; 87077; 87186; 87205; 94640; 94760; 96365; 96374; 99100; 99284; A4222; S0020; J0713; J1815; J2001; J2250; J3370; J3490

== ENCOUNTER 2016-12-24 22:45 | Emergency (ER) | payer OTHER ==
[2016-12-24 22:59] VITALS: BMI 25.4
--- NOTE | 2016-12-24 23:55 | DR.GENAD ---
HPI - PCP Primary Care Physician: nancy - Complaint/Symptoms Chief Complaint Doctors Comments: Patient complains of right lower abdominal pain; right lower back tapan going down his right leg with numbness 4,5th toes right foot. States he has had surgery right groin 2-3 months ago with abscess being drained and it continues to hurt right groin and down right leg. He denies chest pain or SOB. States he is taking IV antibiotics daily at the hospital. He is a patient of Dr. Stauffer. States he had back surgery about two months ago where they put a spacer in his back in [place]. States he has had five back surgeries and four by-pass. He is a diabetic and states his glucose has been running good lately. Chief Complaint:: pain on right side. - Nurses notes reviewed Nurses Notes Review: Yes - Source History Provided: Patient - Mode of Arrival Mode of Arrival: Ambulatory - Timing Onset of Chief Complaint: 12/22/16 Came on: Gradually - Duration Duration: Intermittent How lon Duration: Hours - Location Location: right lower abdomen and leg pain - Severity Severity: Moderate - Modifying Factors Worsens:: walking and standing Improves:: nothing PMH - PMH Past Medical History: Yes Past Medical History: Anemia, Anxiety, Coronary Artery Disease, Diabetes, Dyslipidemia, GERD, Hypertension, Hypothyroidism, Kidney Stones, [place] Past Surgical History: Yes Surgical History: Abdominal Surgery, Ortho Surgery - Family History History of Family Medical Conditions: Yes Family Medical History: Diabetes Mellitus, Cancer, [place], Coronary Artery Disease, Heart Failure - Social History Does patient currently use any type of tobacco product: No Have you used tobacco products in the last 12 months: No Type of Tobacco Use: None Does any household member use tobacco: No Alcohol Use: None Do you use any recreational Drugs:: No Lives With: Family Lives Where: Home - infectious screening In the last 2 months have you had wt loss of >10#?: NO Have you had fever, night sweats or hemotysis?: No Have you traveled outside the country in the last 6 months?: No Isolation: Standard ROS - Review of Systems Constitutional: No Symptoms Reported, Loss of Appetite Eyes: No Symptoms Reported ENTM: No Symptoms Reported Respiratoy: No Symptoms Reported Cardiovascular: No Symptoms Reported. negative: See HPI, Chest Pain, Edema, Palpitations, Syncope, Cyanosis, Skin Mottling, Other Gastrointestinal/Abdominal: No Symptoms Reported. negative: See HPI, Abdominal Pain, Constipation, Diarrhea, Nausea, Vomiting, Food Intolerance, Other Genitourinary: No Symptoms Reported Neurological: No Symptoms Reported Musculoskeletal: No Symptoms Reported, Back Pain, Right, Foot Integumentary: No Symptoms Reported Hematologic/Lymphatic: No Symptoms Reported. negative: See HPI, Anemia, Blood Clots, Easy Bleeding, Easy Bruising, Swollen Glands, Lymphadenopathy, Other Endocrine: No Symptoms Reported Psychiatric: No Symptoms Reported PE - Vital Signs Vitals: Temperature 98.7 F Pulse Rate 65 Respiratory Rate 16 Blood Pressure [Left Arm] 156/65 Blood Pressure [Right Arm] 158/78 Blood Pressure 154/70 O2 Sat by Pulse Oximetry 97 - General Limitations: No Limitations General Appearance: Alert, In Distress (mild) - Head Head Exam: Normal Inspection, Atraumatic, Normocephalic - Eyes Eye exam: Normal Appearance, PERRL, EOMI. negative: Scleral Icterus, Conjunctival Injection, Nystagmus, Miosis, Mydrasis, Periorbital Swelling, Periorbital Tenderness, Other - ENT ENT Exam: Normal Exam, Normal Oropharynx, Normal External Ear Exam, Mucous Membranes Moist, TM's Normal Bilaterally External Ear Exam: Normal External Inspection TM/Canal Exam: Bilateral Normal Nose Exam: Normal Nose Exam Mouth Exam: Normal Inspection Throat Exam: Normal Inspection - Neck Neck Exam: Normal Inspection, Full ROM, Trachea Midline. negative: Tenderness, Meningismus, Lymphadenopathy, Thyromegaly, Other - Chest Chest Inspection: Normal Inspection, Symmetric Chest Wall Rise. negative: Tenderness, Rash, Abscess, Other - Respiratory Respiratory Exam: Normal Lung Sounds Bilat Respiratory Exam: Bilateral Clear to Auscultation - Cardiovascular Cardiovascular Exam: Regular Rate, Normal Rhythm, Normal Heart Sounds. negative : Bradycardia, Tachycardia, Irregular Rhythm, Systolic Murmur, Diastolic Murmur , Rubs, Gallop, Clicks, JVD, +S1, +S2, +S3, +S4, Other - Abdominal Exam Abdominal Exam: Normal Inspection, Normal Bowel Sounds, Soft. negative: Distention, Tenderness, Guarding, Rebound, Rigidity, Dimnished Bowel Sounds, Hyperactive Bowel Sounds, Hypoactive Bowel Sounds, Organomegaly, Trauma, Incision, Ascites, Mass, Bruit, Pulsatile Mass, Hernia, Other Abdominal Tenderness: RLQ, Suprapubic, Moderate - Extremities Extremities Exam: Normal Inspection, Full ROM, Normal Capillary Refill. negative: Tenderness, Edema, Joint Swelling, Calf Tenderness, Other - Back Back Exam: Normal Inspection, Full ROM. negative: Tenderness, (R) CVA Tenderness, (L) CVA Tenderness, Muscle Spasm, Paraspinal Tenderness, Vertebral Tenderness, Rashes, (R) Sciatic Notch Tenderness, (L) Sciatic Notch Tendern, (R ) Straight Leg Raise, (L) Straight Leg Raise, Other - Neurologic Neurological Exam: Alert, Oriented X3, CN II-XII Intact, Normal Gait, Reflexes Normal. negative: Motor Sensory Deficit, Other - Psychiatric Psychiatric Exam: Normal Affect, Normal Mood. negative: Depressed, Agitated, Anxious, Flat Affect, Manic, Homicidal Ideation, Suicidal Ideation, Other - Skin Skin Exam: Warm, Dry, Intact, Normal Color ROR - Labs Reviewed Result Diagrams: 12/25/16 00:10 12/25/16 00:10 Laboratory: WBC 4.5 X10^3/uL (3.6-10.0) 12/25/16 00:10 RBC 3.90 X10^6/uL (4.7-6.0) L 12/25/16 00:10 Hgb 12.0 g/dL (13.5-18.0) L 12/25/16 00:10 Hct 35.7 % (42.0-54.0) L 12/25/16 00:10 MCV 91.4 fL (80.0-100.0) 12/25/16 00:10 MCH 30.8 pg (27.0-34.0) 12/25/16 00:10 MCHC 33.7 g/dL (33.0-35.0) 12/25/16 00:10 RDW 15.2 % (11.6-16.5) 12/25/16 00:10 Plt Count 126 X10^3/uL (150.0-450.0) L 12/25/16 00:10 MPV 7.6 fL (7.4-11.0) 12/25/16 00:10 Neut % 49.6 % (42.0-75.0) 12/25/16 00:10 Lymph % 33.3 % (21.0-51.0) 12/25/16 00:10 [place] % 4.6 % (0.0-13.0) 12/25/16 00:10 Eos % 11.5 % (0.9-2.9) H 12/25/16 00:10 Baso % 1.0 % (0.2-1.0) 12/25/16 00:10 Neut # 2.2 x10^3/uL (2.2-4.8) 12/25/16 00:10 Lymph # 1.5 X10^3/uL (1.3-2.9) 12/25/16 00:10 [place] # 0.2 x10^3/uL (0.3-0.8) L 12/25/16 00:10 Eos # 0.5 x10^3/uL (0.0-0.2) H 12/25/16 00:10 Baso # 0.0 X10^3/uL (0.0-0.1) 12/25/16 00:10 Absolute Nucleated RBC 0.1 /100WBC 12/25/16 00:10 D-Dimer 894 ng/mL (0-400) H* 12/25/16 00:10 Sodium 139 mmol/L (136-145) 12/25/16 00:10 Corrected Sodium 142 mmol/L (136-145) 12/25/16 00:10 Potassium 4.0 mmol/L (3.5-5.1) 12/25/16 00:10 Chloride 101 mmol/L (98-107) 12/25/16 00:10 Carbon Dioxide 29.8 mmol/L (21-32) 12/25/16 00:10 BUN 20 mg/dL (7-18) H 12/25/16 00:10 Creatinine 1.60 mg/dL (0.70-1.30) H 12/25/16 00:10 Est GFR (MDRD) Af Amer 55 (>60) L 12/25/16 00:10 Est GFR (MDRD) Non-Af 46 (>60) L 12/25/16 00:10 Glucose 235 mg/dL (65-99) H 12/25/16 00:10 Calcium 8.3 mg/dL (8.5-10.1) L 12/25/16 00:10 Corrected Calcium TNP 12/25/16 00:10 Total Bilirubin 0.30 mg/dL (0.2-1.0) 12/25/16 00:10 AST 27 Units/L (15-37) 12/25/16 00:10 ALT 24 Units/L (12-78) 12/25/16 00:10 Alkaline Phosphatase 79 Units/L (46-116) 12/25/16 00:10 Total Protein 8.4 g/dL (6.4-8.2) H 12/25/16 00:10 Albumin 3.7 g/dL (3.4-5.0) 12/25/16 00:10 Globulin 4.7 g/dL (2.5-4.5) H 12/25/16 00:10 Albumin/Globulin Ratio 0.8 Ratio (1.1-2.1) L 12/25/16 00:10 Amylase 55 Units/L (25-115) 12/25/16 00:10 Lipase 65 Units/L (73-393) L 12/25/16 00:10 - Diagnosis Discharge Problem: Cellulitis of right abdominal wall, Right leg pain, Diverticulosis of colon, Diabetes mellitus Abdominal pain Qualifiers: Abdominal location: right lower quadrant Qualified Code(s): R10.31 - Right lower quadrant pain Compression fracture of lumbar vertebra Qualifiers: Lumbar vertebra fracture level: L4 Fracture type: closed - Discharge Plan Disposition: 01 HOME, SELF-CARE Condition: Stable - Follow ups/Referrals Follow ups/Referrals: Deric Stauffer [Primary Care Provider] - 3 days - Instructions Instructions: Abdominal Pain, Adult, [id number], Cellulitis, Adult, Easy-to- Read, Degenerative Disk Disease, Spinal Compression Fracture, Diverticulosis
[2016-12-25 00:27] LABS: EOSINOPHILS # (AUTO) 0.5 x10^3/uL (0.0-0.2); EOSINOPHILS % (AUTO) 11.5 % (0.9-2.9); HEMATOCRIT 35.7 % (42.0-54.0); LYMPHOCYTES # (AUTO) 1.5 X10^3/uL (1.3-2.9); LYMPHOCYTES % (AUTO) 33.3 % (21.0-51.0); MEAN CORPUSCULAR HEMOGLOBIN 30.8 pg (27.0-34.0); MEAN CORPUSCULAR HGB CONC 33.7 g/dL (33.0-35.0); MEAN CORPUSCULAR VOLUME 91.4 fL (80.0-100.0); MEAN PLATELET VOLUME 7.6 fL (7.4-11.0); MONOCYTES # (AUTO) 0.2 x10^3/uL (0.3-0.8); MONOCYTES % (AUTO) 4.6 % (0.0-13.0); NEUTROPHILS # (AUTO) 2.2 x10^3/uL (2.2-4.8); NEUTROPHILS % (AUTO) 49.6 % (42.0-75.0); PLATELET COUNT 126 X10^3/uL (150.0-450.0); RED CELL DISTRIBUTION WIDTH 15.2 % (11.6-16.5); WHITE BLOOD COUNT 4.5 X10^3/uL (3.6-10.0)
[2016-12-25 00:38] LABS: ALANINE AMINOTRANSFERASE 24 Units/L (12-78); ALBUMIN 3.7 g/dL (3.4-5.0); ALKALINE PHOSPHATASE 79 Units/L (46-116); AMYLASE 55 Units/L (25-115); ASPARTATE AMINO TRANSFERASE 27 Units/L (15-37); BLOOD UREA NITROGEN 20 mg/dL (7-18); CALCIUM 8.3 mg/dL (8.5-10.1); CARBON DIOXIDE 29.8 mmol/L (21-32); CHLORIDE 101 mmol/L (98-107); COR NA(FOR HYPERGLY) 142 mmol/L (136-145); GLUCOSE 235 mg/dL (65-99); LIPASE 65 Units/L (73-393); SODIUM 139 mmol/L (136-145); TOTAL PROTEIN 8.4 g/dL (6.4-8.2); eGFR BLACK RACES 55 (>60); eGFR NON BLACK RACES 46 (>60)
--- NOTE | 2016-12-25 00:56 | CT ---
CT lumbar spine without contrast Indication: Low back pain with radiation down right lower extremity Comparison: MRI lumbar spine 09/20/2016. CT abdomen and pelvis 08/28/2015. Technique: CT images the lumbar spine were obtained without contrast. Automatic exposure control was utilized. Findings: There are changes of interval vertebroplasty of the previously described L4 compression fr acture, which demonstrates unchanged height loss of approximately 40% compared with the MRI. There i s no evidence for significant spinal canal or foraminal narrowing, within the limitations of a nonco ntrast CT. There is generalized osteopenia. The lumbar spine alignment is normal. The remaining lumbar levels d emonstrate no significant height loss or cortical disruption. There is mild to moderate multilevel d iscogenic and facet arthropathy. Impression: 1. Changes of interval L4 vertebroplasty with unchanged height loss related to previously described compression fracture. 2. No acute lumbar spine fracture identified. 3. Multilevel spondylosis without high-grade foraminal or spinal canal stenosis. Reported By:
--- NOTE | 2016-12-25 01:02 | CT ---
CT abdomen and pelvis without contrast Indication: Right lower quadrant pain, right groin pain. Comparison: 08/28/2015 Technique: CT images of the abdomen and pelvis were obtained without contrast. Automatic exposure co ntrol was utilized. Findings: Lumbar spine findings are reported separately. There is mild osteonecrosis of both femoral heads, without cortical collapse. No aggressive osseous lesions are seen. The lung bases are clear. Evaluation is limited by lack of contrast. The gallbladder is surgically absent. Within noncontrast limitations, the liver, spleen, stomach, duodenum, pancreas, adrenals, and kidneys demonstrate no si gnificant abnormality. There is colonic diverticulosis without evidence for acute diverticulitis. No significant bowel thickening or dilatation of the lower GI tract is identified. The appendix is abs ent. Urinary bladder, prostate, and rectum are unremarkable. No free fluid or adenopathy identified. There is significant subcutaneous stranding with overlying skin thickening in the right inguinal reg ion. There are shotty inguinal lymph nodes. No bulky adenopathy is seen. No obvious discrete collect ion identified, within noncontrast limitations. Impression: 1. There are inflammatory changes of the subcutaneous tissues of the right inguinal region with over lying skin thickening. No obvious discrete collection is identified, within the limitations of a non contrast study. Correlation for any recent manipulation or vascular access attempt in this region is recommended. 2. No acute process identified within the abdomen or pelvis. 3. Diverticulosis and other findings as above. Reported By:
[2016-12-25 01:06] LABS: D DIMER 894 ng/mL (0-400)
--- NOTE | 2016-12-25 02:04 | VAS ---
HISTORY: Right lower extremity pain, elevated D-dimer Study: No extremity venous Doppler ultrasound Comparison: 05/19/2014 TECHNIQUE: Multiple nazario scale and color flow Doppler images of the deep venous system were obtaine d of the Right lower extremity. FINDINGS: The deep venous system of the right lower extremity was evaluated from the level of the common femor al vein through the popliteal vein. Normal color flow and augmentation can be observed. In additio n, normal compression is seen throughout the deep venous system. IMPRESSION: 1. Negative for right lower extremity DVT. Reported By:
[2016-12-25 02:47] VITALS: BP 154/65
== END 2016-12-25 02:45 | disposition home or self-care (01) ==
LOC: ER 22:45
DX: S32.000A Wedge compression fracture of unspecified lumbar vertebra, initial encounter for closed fracture (principal); L03.311 Cellulitis of abdominal wall; M79.604 Pain in right leg; K57.30 Diverticulosis of large intestine without perforation or abscess without bleeding; E11.9 Type 2 diabetes mellitus without complications; R10.31 Right lower quadrant pain; Y33.XXXA Other specified events, undetermined intent, initial encounter; Y92.9 Unspecified place or not applicable
CPT/HCPCS: 36415; 72131; 74176; 80053; 82150; 83690; 85025; 85378; 93971; 99283

== ENCOUNTER 2017-08-07 16:38 | Observation (INO) | payer OTHER ==
[2017-08-07] MEDS ORDERED: PHENERGAN INJ 25 MG IV PRN (17:27)
[2017-08-07] MEDS: NS 1000 ML 1,000 ML IV SCH (17:41)
[2017-08-07 18:14] LABS: BASOPHILS % (AUTO) 0.9 % (0.2-1.0); EOSINOPHILS # (AUTO) 0.3 x10^3/uL (0.0-0.2); EOSINOPHILS % (AUTO) 4.9 % (0.9-2.9); HEMATOCRIT 32.2 % (42.0-54.0); HEMOGLOBIN 11.2 g/dL (13.5-18.0); LYMPHOCYTES % (AUTO) 19.7 % (21.0-51.0); MEAN CORPUSCULAR HEMOGLOBIN 30.4 pg (27.0-34.0); MEAN CORPUSCULAR HGB CONC 34.7 g/dL (33.0-35.0); MEAN CORPUSCULAR VOLUME 87.5 fL (80.0-100.0); MEAN PLATELET VOLUME 8.3 fL (7.4-11.0); MONOCYTES # (AUTO) 0.4 x10^3/uL (0.3-0.8); MONOCYTES % (AUTO) 6.7 % (0.0-13.0); NEUTROPHILS # (AUTO) 3.6 x10^3/uL (2.2-4.8); NEUTROPHILS % (AUTO) 67.8 % (42.0-75.0); PLATELET COUNT 179 X10^3/uL (150.0-450.0); RED BLOOD COUNT 3.68 X10^6/uL (4.7-6.0); RED CELL DISTRIBUTION WIDTH 15.2 % (11.6-16.5); WHITE BLOOD COUNT 5.3 X10^3/uL (3.6-10.0)
[2017-08-07] MEDS: PEPCID 20 MG IV PREMIX* 20 MG/50 ML BAG IV SCH ×3 (18:15→21:17)
[2017-08-07] MEDS: PROTONIX INJ 40 MG VIAL IVP SCH ×2 (18:15→21:14)
[2017-08-07 18:22] VITALS: BMI 24.0
[2017-08-07 18:27] LABS: ALANINE AMINOTRANSFERASE 32 Units/L (12-78); ALBUMIN 3.5 g/dL (3.4-5.0); ALKALINE PHOSPHATASE 84 Units/L (46-116); ASPARTATE AMINO TRANSFERASE 31 Units/L (15-37); BLOOD UREA NITROGEN 15 mg/dL (7-18); CALCIUM 8.4 mg/dL (8.5-10.1); CARBON DIOXIDE 27.1 mmol/L (21-32); CHLORIDE 104 mmol/L (98-107); COR NA(FOR HYPERGLY) 143 mmol/L (136-145); CREATININE 1.15 mg/dL (0.70-1.30); SODIUM 141 mmol/L (136-145); TOTAL PROTEIN 7.2 g/dL (6.4-8.2); eGFR BLACK RACES > 60 (>60); eGFR NON BLACK RACES > 60 (>60)
[2017-08-07 22:05] LABS: BILIRUBIN,URINE NEGATIVE (NEGATIVE); BLOOD/HEMOGLOBIN,URINE NEGATIVE (NEGATIVE); GLUCOSE, URINE 1+ (NEGATIVE); KETONES,URINE NEGATIVE (NEGATIVE); LEUKOCYTE ESTERASE ,URINE NEGATIVE (NEGATIVE); NITRITES,URINE NEGATIVE (NEGATIVE); PROTEIN,URINE NEGATIVE (NEGATIVE); UROBILINOGEN,URINE NORMAL (NORMAL)
[2017-08-07 22:19] LABS: APPEARANCE,URINE CLEAR (CLEAR); COLOR,URINE YELLOW (YELLOW)
[2017-08-07] MEDS: HumuLIN R SUBCUT PRN (22:30)
[2017-08-08 06:15] LABS: BASOPHILS % (AUTO) 0.7 % (0.2-1.0); EOSINOPHILS # (AUTO) 0.3 x10^3/uL (0.0-0.2); HEMATOCRIT 31.8 % (42.0-54.0); HEMOGLOBIN 11.1 g/dL (13.5-18.0); LYMPHOCYTES # (AUTO) 1.1 X10^3/uL (1.3-2.9); MEAN CORPUSCULAR HEMOGLOBIN 30.3 pg (27.0-34.0); MEAN CORPUSCULAR HGB CONC 34.9 g/dL (33.0-35.0); MEAN PLATELET VOLUME 8.2 fL (7.4-11.0); MONOCYTES # (AUTO) 0.5 x10^3/uL (0.3-0.8); MONOCYTES % (AUTO) 8.4 % (0.0-13.0); NEUTROPHILS # (AUTO) 3.9 x10^3/uL (2.2-4.8); NEUTROPHILS % (AUTO) 66.9 % (42.0-75.0); PLATELET COUNT 181 X10^3/uL (150.0-450.0); RED BLOOD COUNT 3.65 X10^6/uL (4.7-6.0); RED CELL DISTRIBUTION WIDTH 15.2 % (11.6-16.5); WHITE BLOOD COUNT 5.8 X10^3/uL (3.6-10.0)
[2017-08-08 06:24] LABS: ALANINE AMINOTRANSFERASE 29 Units/L (12-78); ALBUMIN 3.2 g/dL (3.4-5.0); ALKALINE PHOSPHATASE 79 Units/L (46-116); ASPARTATE AMINO TRANSFERASE 25 Units/L (15-37); BLOOD UREA NITROGEN 13 mg/dL (7-18); CALCIUM 8.1 mg/dL (8.5-10.1); CARBON DIOXIDE 25.8 mmol/L (21-32); CHLORIDE 106 mmol/L (98-107); COR CA(FOR HYPOALB) 8.7 mg/dL (8.5-10.1); CREATININE 1.06 mg/dL (0.70-1.30); SODIUM 143 mmol/L (136-145); TOTAL PROTEIN 6.8 g/dL (6.4-8.2); eGFR BLACK RACES > 60 (>60); eGFR NON BLACK RACES > 60 (>60)
[2017-08-08] MEDS: NS 1000 ML 1,000 ML IV SCH ×2 (06:29→23:00)
[2017-08-08] MEDS: SNACK - Diabetic Appropriate PO SCH ×2 (08:45→20:50)
[2017-08-08] MEDS: PROTONIX INJ 40 MG VIAL IVP SCH ×2 (08:45→21:02)
[2017-08-08] MEDS: PEPCID 20 MG IV PREMIX* 20 MG/50 ML BAG IV SCH ×2 (08:45→21:02)
--- NOTE | 2017-08-08 09:09 | DR.CONSULT ---
Consult - Consultation for Day of: Date: 08/07/17 - Chief Complaint Chief Complaint: Patient referred for N/V and weight loss. Patient with complaints of nausea, vomiting, diffuse abdominal pain. - Allergies Allergies/Adverse Reactions: Allergies Allergy/AdvReac Type Severity Reaction Status Date / Time codeine Allergy Verified 08/07/17 17:26 iodine Allergy Verified 08/07/17 17:26 Sulfa (Sulfonamide Allergy Verified 08/07/17 17:26 Antibiotics) [SULFA] zolpidem [From Ambien] Allergy Verified 08/07/17 17:26 - History of Present Illness History of Present Illness: Patient is a 71yo male who was referred for nausea, vomiting and wieght loss. Patient with complaints of dyspepsia, nausea and vomiting that has been going on for almost 2 weeks and diffuse abdominal pain. States he has lost approximately 16lbs in the last 2 weeks. he denies dysphagia , constipation, diarrhea, melena and hematochezia. Last colonoscopy was 08/07/14 which showedsigmopid diverticulosis and internal hemorrhoids. Last EGD was which showed distal esophagitis, small duodenal polyp which was benign, and antral gastritis. - Past Medical History Past Medical History: Anemia, Anxiety, Coronary Artery Disease, Diabetes, Dyslipidemia, GERD, Hypertension, Hypothyroidism, Kidney Stones, [place] Additional Medical History: Cataracts, Seasonal Allergies, Hearing Loss bilaterally, Diveritculosis, Constipation, Gastrointestinal Ulcer - Past Surgical History Surgical History: Abdominal Surgery, Ortho Surgery, Other Additional Surgical History: Lumbar spine surgery due to herniated L4-L5 disk - Family History Family Medical History: Diabetes Mellitus, Cancer, [place], Coronary Artery Disease, Heart Failure, Hypertension - Social History Does patient currently use any type of tobacco product: No Have you used tobacco products in the last 12 months: No Type of Tobacco Use: None Does any household member use tobacco: No Alcohol Use: None Drug Use: None - Review of Systems Constitutional: Weakness Eyes: No Symptoms Reported ENT: No Symptoms Reported Respiratory: No Symptoms Reported Cardiovascular: No Symptoms Reported Gastrointestinal: Nausea, Vomiting, Abdominal Pain Genitourinary: No Symptoms Reported Musculoskeletal: No Symptoms Reported Skin: No Symptoms Reported Neurological: No Symptoms Reported - Physical Exam Vital Signs: Temperature 98 F Pulse Rate [Right Brachial] 66 Respiratory Rate 20 Blood Pressure [Left Arm] 140/62 Blood Pressure [Right Arm] 128/60 Blood Pressure 154/65 O2 Sat by Pulse Oximetry 100 Oriented: Normal Eyes: Normal Ear: Normal Nose: Normal Throat: Normal Respiratory: Clear Throughout Cardiovascular: Normal Auscultation: Bowel Sounds: Normal Palpation: Normal, Other (no distention). negative: Spleen Enlarged, Liver Enlarged, Mass Pulsatile Tenderness: Diffuse Skin: Normal Musculoskeletal: Normal Psychiatric: Normal Mood Description: Calm Affect: Normal Speech Pattern: Clear - Plan Plan: Assessment. 1. Nausea, vomiting, abdominal pain, weight loss r/o gastric ulcer, gastric adenocarcinoma. Plan. 1. EGD tomorrow, protonix IV, recommend abdomen and pelvis CT with contrast after EGD. Plan reviewed with Dr. Garcia
[2017-08-08] MEDS: NS 500 ML IV 500 ML IV ONE ×3 (12:47→14:01)
[2017-08-08] MEDS ORDERED: DIPRIVAN VIAL 20 ML ONE (13:58)
[2017-08-08] MEDS ORDERED: XYLOCAINE 2 % (PLAIN) ONE (13:58)
[2017-08-08] MEDS ORDERED: EPHEDRINE SULFATE INJ ONE (14:14)
[2017-08-08 14:54] LABS: AMYLASE 37 Units/L (25-115); LIPASE 35 Units/L (73-393)
--- NOTE | 2017-08-08 17:13 | DR.UPDATE ---
H&P Update History and Physical Update: PATIENT WAS SEEN IN THE OFFICE ON 08/07/2017. A H&P WAS COMPLETED PRIOR TO ADMISSION. PATIENT HAS BEEN SEEN AND EXAMINED WITH NO CHANGES NOTED TO H&P. Changes noted: NO Yes with the following:
--- NOTE | 2017-08-08 23:28 | CT ---
CT abdomen and pelvis without contrast Indication: Esophagitis and gastritis. Abdominal pain and suspected weight loss Comparison: 12/25/2016 Technique: Helical images through the abdomen and pelvis without contrast. Coronal and sagittal refor mats provided. Findings: Review of bone windows demonstrates no destructive osseous lesion. Limited images through t he lower chest shows no acute abnormality. Vascular calcifications noted. Distal esophagus appears no rmal. Abdomen: The gallbladder is absent. Within the limits of a noncontrast study, the liver, spleen, adre nal glands and atrophic pancreas show no acute abnormality. The stomach small bowel appear normal. Co lonic diverticulosis is noted without acute inflammatory change. Oral contrast enters the colon witho ut obstruction. Mild wall thickening at the cecum is suggested on axial image 65 at the junction with the ascending colon. The appendix is not convincingly demonstrated. Pelvis: The urinary bladder and rectum are normal. Prostate gland is prominent. Vascular plaque is no melinda. Kidneys show no hydroureteronephrosis or stone. Impression: 1. No obstruction to the flow of oral contrast, which is in the colon. 2. Wall thickening at the cecum/ascending colon junction with mild stranding. This could reflect coli tis, but underlying neoplasm should be excluded. Endoscopic follow-up recommended. The 3. Diverticulosis, vascular plaque, prostatomegaly and other findings as above. Reported By:
[2017-08-09 07:03] LABS: ALANINE AMINOTRANSFERASE 27 Units/L (12-78); ALBUMIN 3.4 g/dL (3.4-5.0); ALKALINE PHOSPHATASE 87 Units/L (46-116); ASPARTATE AMINO TRANSFERASE 27 Units/L (15-37); BLOOD UREA NITROGEN 8 mg/dL (7-18); CALCIUM 8.1 mg/dL (8.5-10.1); CARBON DIOXIDE 24.5 mmol/L (21-32); CHLORIDE 104 mmol/L (98-107); CREATININE 1.06 mg/dL (0.70-1.30); SODIUM 139 mmol/L (136-145); eGFR BLACK RACES > 60 (>60); eGFR NON BLACK RACES > 60 (>60)
[2017-08-09 07:09] LABS: BASOPHILS # (AUTO) 0.1 X10^3/uL (0.0-0.1); BASOPHILS % (AUTO) 1.2 % (0.2-1.0); EOSINOPHILS # (AUTO) 0.3 x10^3/uL (0.0-0.2); EOSINOPHILS % (AUTO) 5.9 % (0.9-2.9); HEMATOCRIT 31.6 % (42.0-54.0); HEMOGLOBIN 11.2 g/dL (13.5-18.0); LYMPHOCYTES # (AUTO) 1.2 X10^3/uL (1.3-2.9); LYMPHOCYTES % (AUTO) 24.9 % (21.0-51.0); MEAN CORPUSCULAR HEMOGLOBIN 30.5 pg (27.0-34.0); MEAN CORPUSCULAR HGB CONC 35.3 g/dL (33.0-35.0); MEAN CORPUSCULAR VOLUME 86.3 fL (80.0-100.0); MEAN PLATELET VOLUME 8.1 fL (7.4-11.0); MONOCYTES # (AUTO) 0.5 x10^3/uL (0.3-0.8); NEUTROPHILS # (AUTO) 2.9 x10^3/uL (2.2-4.8); PLATELET COUNT 171 X10^3/uL (150.0-450.0); RED BLOOD COUNT 3.66 X10^6/uL (4.7-6.0); RED CELL DISTRIBUTION WIDTH 15.4 % (11.6-16.5); WHITE BLOOD COUNT 4.9 X10^3/uL (3.6-10.0)
[2017-08-09] MEDS ORDERED: ANCEF 1 GM IV PREMIX* 1 GM/50 ML BAG IV ONE (07:33)
[2017-08-09] MEDS ORDERED: NS 1000 ML 1,000 ML ONE (07:34)
[2017-08-09] MEDS: PEPCID 20 MG IV PREMIX* 20 MG/50 ML BAG IV SCH ×2 (08:50→20:27)
[2017-08-09] MEDS: PROTONIX INJ 40 MG VIAL IVP SCH ×2 (08:50→20:27)
[2017-08-09] MEDS: NS 1000 ML 1,000 ML IV SCH ×3 (10:58→20:27)
[2017-08-09] MEDS: SNACK - Diabetic Appropriate PO SCH (20:27)
--- NOTE | 2017-08-09 21:16 | PCM.PROG ---
Progress Note - Progress Note for Day of Date: 08/09/17 - Subjective Subjective: WAS ADMITTED FOR NAUSEA, VOMITING, AND UNEXPLAINED WEIGHT LOSS. TODAY, HE IS ALERT AND ORIENTED, LYING IN BED ON MORNING ROUNDS. HE CONTINUES WITH COMPLAINTS OF NAUSEA, BUT DENIES VOMITING THIS MORNING. ON EXAMINATION, HEART IS REGULAR IN RATE AND RHYTHM. BILATERAL LUNGS ARE CLEAR TO AUSCULTATION. ABDOMEN IS ROUND, SOFT, AND NON-TENDER WITH NORMAL BOWEL SOUNDS NOTED IN ALL QUADRANTS. THERE IS NORMAL RANGE OF MOTION NOTED TO ALL EXTREMITIES. HIS VITALS THIS MORNING ARE 98.0-66-20-100%-128/60. HE REMAINS HEMODYNAMICALLY STABLE TODAY. CONSULTED WITH PATIENT. HE PLANS TO TAKE PATIENT TO THE OR IN THE MORNING FOR AN EGD. WE ARE IN AGREEMENT WITH PLAN. WE WILL ALSO SCHEDULE A GASTRIC EMPTYING STUDY. OTHERWISE, WE WILL CONTINUE WITH CURRENT PLAN OF CARE TODAY. WE PLAN TO FOLLOW UP WITH AM LABS AND CONTINUE TO MONITOR PATIENT. - Past Medical Family Social History Past Med/Fam/Surg Hx: No changes since H&P Allergies: Allergies codeine Allergy (Verified 08/07/17 17:26) iodine Allergy (Verified 08/07/17 17:26) Sulfa (Sulfonamide Antibiotics) [SULFA] Allergy (Verified 08/07/17 17:26) zolpidem [From Ambien] Allergy (Verified 08/07/17 17:26) - Review of Systems ROS: No change since H&P - Vital Signs and I&O's Vital Signs: Temperature 98.3 F Pulse Rate [Right Brachial] 65 Respiratory Rate 18 Blood Pressure [Left Arm] 152/64 Blood Pressure [Right Arm] 138/64 Blood Pressure 154/65 O2 Sat by Pulse Oximetry 97 Intake and Output: Intake & Output 08/07/17 08/08/17 08/09/17 08/10/17 11:59 11:59 11:59 11:59 Intake Total 1672 1810 1041 Output Total 1700 550 500 Balance -28 1260 541 - Physical Exam Oriented: Normal Eyes: Normal Ear: Normal Nose: Normal Throat: Normal Respiratory: Normal Cardiovascular: Normal Auscultation: Bowel Sounds: Increased Palpation: Normal Tenderness: Diffuse, Mild. negative: Rebound, Guarding, Rigidity Skin: Normal Musculoskeletal: Normal Psychiatric: Normal Mood Description: Calm Affect: Normal Speech Pattern: Clear, Appropriate - Laboratory and Diagnostics Result Diagrams: 08/09/17 05:25 08/09/17 05:25 Labs: Laboratory WBC 4.9 X10^3/uL (3.6-10.0) 08/09/17 05:25 RBC 3.66 X10^6/uL (4.7-6.0) L 08/09/17 05:25 Hgb 11.2 g/dL (13.5-18.0) L 08/09/17 05:25 Hct 31.6 % (42.0-54.0) L 08/09/17 05:25 MCV 86.3 fL (80.0-100.0) 08/09/17 05:25 MCH 30.5 pg (27.0-34.0) 08/09/17 05:25 MCHC 35.3 g/dL (33.0-35.0) H 08/09/17 05:25 RDW 15.4 % (11.6-16.5) 08/09/17 05:25 Plt Count 171 X10^3/uL (150.0-450.0) 08/09/17 05:25 MPV 8.1 fL (7.4-11.0) 08/09/17 05:25 Neut % (Auto) 58.0 % (42.0-75.0) 08/09/17 05:25 Lymph % (Auto) 24.9 % (21.0-51.0) 08/09/17 05:25 [place] % (Auto) 10.0 % (0.0-13.0) 08/09/17 05:25 Eos % (Auto) 5.9 % (0.9-2.9) H 08/09/17 05:25 Baso % (Auto) 1.2 % (0.2-1.0) H 08/09/17 05:25 Neut # (Auto) 2.9 x10^3/uL (2.2-4.8) 08/09/17 05:25 Lymph # (Auto) 1.2 X10^3/uL (1.3-2.9) L 08/09/17 05:25 [place] # (Auto) 0.5 x10^3/uL (0.3-0.8) 08/09/17 05:25 Eos # (Auto) 0.3 x10^3/uL (0.0-0.2) H 08/09/17 05:25 Baso # (Auto) 0.1 X10^3/uL (0.0-0.1) 08/09/17 05:25 Absolute Nucleated RBC 0.2 /100WBC 08/09/17 05:25 Sodium 139 mmol/L (136-145) 08/09/17 05:25 Corrected Sodium TNP 08/09/17 05:25 Potassium 3.9 mmol/L (3.5-5.1) 08/09/17 05:25 Chloride 104 mmol/L (98-107) 08/09/17 05:25 Carbon Dioxide 24.5 mmol/L (21-32) 08/09/17 05:25 BUN 8 mg/dL (7-18) 08/09/17 05:25 Creatinine 1.06 mg/dL (0.70-1.30) 08/09/17 05:25 Est GFR (MDRD) Af Amer > 60 (>60) 08/09/17 05:25 Est GFR (MDRD) Non-Af > 60 (>60) 08/09/17 05:25 Glucose 94 mg/dL (65-99) 08/09/17 05:25 POC Glucose (mg/dL) 177 mg/dL (65-99) H 08/09/17 20:25 Calcium 8.1 mg/dL (8.5-10.1) L 08/09/17 05:25 Corrected Calcium TNP 08/09/17 05:25 Total Bilirubin 0.40 mg/dL (0.2-1.0) 08/09/17 05:25 AST 27 Units/L (15-37) 08/09/17 05:25 ALT 27 Units/L (12-78) 08/09/17 05:25 Alkaline Phosphatase 87 Units/L (46-116) 08/09/17 05:25 Total Protein 7.0 g/dL (6.4-8.2) 08/09/17 05:25 Albumin 3.4 g/dL (3.4-5.0) 08/09/17 05:25 Globulin 3.6 g/dL (2.5-4.5) 08/09/17 05:25 Albumin/Globulin Ratio 0.9 Ratio (1.1-2.1) L 08/09/17 05:25 Amylase 37 Units/L (25-115) 08/08/17 04:19 Lipase 35 Units/L (73-393) L 08/08/17 04:19 Specimen Type Clean catch urine 08/07/17 20:20 Urine Color Yellow (YELLOW) 08/07/17 20:20 Urine Appearance Clear (CLEAR) 08/07/17 20:20 Urine pH 6.0 (5.0 - 8.0) 08/07/17 20:20 Ur Specific [place] 1.015 (1.000-1.030) 08/07/17 20:20 Urine Protein Negative (NEGATIVE) 08/07/17 20:20 Urine Glucose (UA) 1+ (NEGATIVE) 08/07/17 20:20 Urine Ketones Negative (NEGATIVE) 08/07/17 20:20 Urine Occult Blood Negative (NEGATIVE) 08/07/17 20:20 Urine Nitrite Negative (NEGATIVE) 08/07/17 20:20 Urine Bilirubin Negative (NEGATIVE) 08/07/17 20:20 Urine Urobilinogen Normal (NORMAL) 08/07/17 20:20 Ur Leukocyte Esterase Negative (NEGATIVE) 08/07/17 20:20 Tissue Pathology To follow 08/08/17 14:40 - Plan (1) Nausea & vomiting Status: Acute Qualifiers: Vomiting type: unspecified Vomiting Intractability: intractable Qualified Code(s): R11.2 - Nausea with vomiting, unspecified Plan: EGD IN AM, PEPCID MG IV Q12H, PROTONIX 40MG IV BID, PROMETHAZINE 25MG IV Q4H, CONTINUE TO MONITOR (2) Unexplained weight loss Status: Acute Plan: EGD IN AM, CONTINUE TO MONITOR
[2017-08-10 06:02] LABS: BASOPHILS % (AUTO) 1.3 % (0.2-1.0); EOSINOPHILS # (AUTO) 0.4 x10^3/uL (0.0-0.2); HEMATOCRIT 33.4 % (42.0-54.0); HEMOGLOBIN 11.6 g/dL (13.5-18.0); LYMPHOCYTES % (AUTO) 26.4 % (21.0-51.0); MEAN CORPUSCULAR HEMOGLOBIN 30.1 pg (27.0-34.0); MEAN CORPUSCULAR HGB CONC 34.7 g/dL (33.0-35.0); MEAN CORPUSCULAR VOLUME 86.7 fL (80.0-100.0); MEAN PLATELET VOLUME 8.1 fL (7.4-11.0); MONOCYTES # (AUTO) 0.4 x10^3/uL (0.3-0.8); MONOCYTES % (AUTO) 11.4 % (0.0-13.0); NEUTROPHILS % (AUTO) 50.9 % (42.0-75.0); PLATELET COUNT 172 X10^3/uL (150.0-450.0); RED BLOOD COUNT 3.85 X10^6/uL (4.7-6.0); RED CELL DISTRIBUTION WIDTH 15.6 % (11.6-16.5); WHITE BLOOD COUNT 3.9 X10^3/uL (3.6-10.0)
[2017-08-10 06:06] LABS: ALANINE AMINOTRANSFERASE 27 Units/L (12-78); ALBUMIN 3.3 g/dL (3.4-5.0); ALKALINE PHOSPHATASE 88 Units/L (46-116); ASPARTATE AMINO TRANSFERASE 23 Units/L (15-37); BLOOD UREA NITROGEN 8 mg/dL (7-18); CALCIUM 8.6 mg/dL (8.5-10.1); CARBON DIOXIDE 27.7 mmol/L (21-32); CHLORIDE 107 mmol/L (98-107); COR CA(FOR HYPOALB) 9.2 mg/dL (8.5-10.1); COR NA(FOR HYPERGLY) 144 mmol/L (136-145); CREATININE 1.15 mg/dL (0.70-1.30); SODIUM 143 mmol/L (136-145); TOTAL PROTEIN 6.9 g/dL (6.4-8.2); eGFR BLACK RACES > 60 (>60); eGFR NON BLACK RACES > 60 (>60)
[2017-08-10] MEDS: PROTONIX INJ 40 MG VIAL IVP SCH ×2 (08:29→20:41)
[2017-08-10] MEDS: PEPCID 20 MG IV PREMIX* 20 MG/50 ML BAG IV SCH ×2 (08:29→20:41)
[2017-08-10] MEDS: NS 1000 ML 1,000 ML IV SCH (15:09)
--- NOTE | 2017-08-10 15:17 | NM ---
GASTRIC EMPTYING CLINICAL INDICATION: Nausea and vomiting PROCEDURE: The patient ingested a standard 150 gram solid meal. The meal consisted of 0.60 mCi of technetium-99m sulfur colloid with eggs. Anterior and posterior static images of the abdomen were obtained at 5 minutes intervals for 90 minut es post ingestion. The data were processed on the computer and the half-emptying time was calculated using the geometric mean. COMPARISON: None FINDINGS: The percentage of the radiolabeled contents remaining in the stomach were 60 % at 1.5 hour (normal is less than 90% at 1 hour, 60% at 2 hours, 30% at 3 hours, and 10% at 4 hours). IMPRESSION: 1. Normal gastric emptying study with retention percentages as above. Reported By:
[2017-08-10] MEDS: HumuLIN R SUBCUT PRN (17:34)
[2017-08-10] MEDS: SNACK - Diabetic Appropriate PO SCH (20:45)
--- NOTE | 2017-08-10 21:13 | PCM.PROG ---
Progress Note - Progress Note for Day of Date: 08/09/17 - Subjective Subjective: WAS ADMITTED FOR NAUSEA, VOMITING, AND UNEXPLAINED WEIGHT LOSS. TODAY, HE IS ALERT AND ORIENTED, LYING IN BED ON MORNING ROUNDS. HE CONTINUES WITH COMPLAINTS OF NAUSEA AND GENERALIZED WEAKNESS. ON EXAMINATION, HEART IS REGULAR IN RATE AND RHYTHM. BILATERAL LUNGS ARE CLEAR TO AUSCULTATION. ABDOMEN IS ROUND, SOFT, AND NON-TENDER WITH NORMAL BOWEL SOUNDS NOTED IN ALL QUADRANTS. THERE IS NORMAL RANGE OF MOTION NOTED TO ALL EXTREMITIES. HIS VITALS THIS MORNING ARE 97.2-72-12-99%-135/65. ABNORMAL LAB VALUES INCLUDE THE FOLLOWING: RBC 2.66, HGB 11.2, HCT 31.6, CALCIUM 8.1. PATIENT HAD AN EGD YESTERDAY. POST-OP EGD DIAGNOSIS INCLUDE ESOPHAGITIS AND GASTRITIS. A CT OF THE ABDOMEN AND PELVIS WAS ALSO OBTAINED THIS MORNING. IT REVEALED NO OBSTURCTION TO THE FLOW OR ORAL CONTRAST, WHICH IS IN THE COLON. WALL THICKENING AT THE CECUM/ASCENDING COLON JUNCTION WITH MILD STRANDING. THIS COULD REFLECT COLITIS, BUT UNDERLYING NEOPLASM SHOULD BE EXCLUDED. DIVERTICULOSIS, VASCULAR PLAQUE, PROSTATOMEGALY NOTED. HE IS SCHEDULED FOR A GASTRIC EMPTYING TODAY. WE WILL CONTINUE WITH CURRENT PLAN OF CARE. WE PLAN TO FOLLOW UP WITH AM LABS AND CONTINUE TO MONITOR PATIENT. - Past Medical Family Social History Past Med/Fam/Surg Hx: No changes since H&P Allergies: Allergies codeine Allergy (Verified 08/07/17 17:26) iodine Allergy (Verified 08/07/17 17:26) Sulfa (Sulfonamide Antibiotics) [SULFA] Allergy (Verified 08/07/17 17:26) zolpidem [From Ambien] Allergy (Verified 08/07/17 17:26) - Review of Systems ROS: No change since H&P - Vital Signs and I&O's Vital Signs: Temperature 98.1 F Pulse Rate [Right Brachial] 66 Respiratory Rate 16 Blood Pressure [Left Arm] 115/58 Blood Pressure [Right Arm] 146/64 Blood Pressure 154/65 O2 Sat by Pulse Oximetry 97 Intake and Output: Intake & Output 08/08/17 08/09/17 08/10/17 08/11/17 11:59 11:59 11:59 11:59 Intake Total 1672 1810 1581 569 Output Total 0506 123 1782 Balance -28 1260 -169 569 - Physical Exam Oriented: Normal Eyes: Normal Ear: Normal Nose: Normal Throat: Normal Respiratory: Normal Cardiovascular: Normal : Normal Auscultation: Bowel Sounds: Increased Palpation: Normal Tenderness: Diffuse, Mild. negative: Rebound, Guarding, Rigidity Skin: Normal Musculoskeletal: Normal Psychiatric: Normal Mood Description: Calm Affect: Normal Speech Pattern: Clear, Appropriate - Laboratory and Diagnostics Result Diagrams: 08/10/17 04:25 08/10/17 04:25 Labs: Laboratory WBC 3.9 X10^3/uL (3.6-10.0) 08/10/17 04:25 RBC 3.85 X10^6/uL (4.7-6.0) L 08/10/17 04:25 Hgb 11.6 g/dL (13.5-18.0) L 08/10/17 04:25 Hct 33.4 % (42.0-54.0) L 08/10/17 04:25 MCV 86.7 fL (80.0-100.0) 08/10/17 04:25 MCH 30.1 pg (27.0-34.0) 08/10/17 04:25 MCHC 34.7 g/dL (33.0-35.0) 08/10/17 04:25 RDW 15.6 % (11.6-16.5) 08/10/17 04:25 Plt Count 172 X10^3/uL (150.0-450.0) 08/10/17 04:25 MPV 8.1 fL (7.4-11.0) 08/10/17 04:25 Neut % (Auto) 50.9 % (42.0-75.0) 08/10/17 04:25 Lymph % (Auto) 26.4 % (21.0-51.0) 08/10/17 04:25 [place] % (Auto) 11.4 % (0.0-13.0) 08/10/17 04:25 Eos % (Auto) 10.0 % (0.9-2.9) H 08/10/17 04:25 Baso % (Auto) 1.3 % (0.2-1.0) H 08/10/17 04:25 Neut # (Auto) 2.0 x10^3/uL (2.2-4.8) L 08/10/17 04:25 Lymph # (Auto) 1.0 X10^3/uL (1.3-2.9) L 08/10/17 04:25 [place] # (Auto) 0.4 x10^3/uL (0.3-0.8) 08/10/17 04:25 Eos # (Auto) 0.4 x10^3/uL (0.0-0.2) H 08/10/17 04:25 Baso # (Auto) 0.0 X10^3/uL (0.0-0.1) 08/10/17 04:25 Absolute Nucleated RBC 0.0 /100WBC 08/10/17 04:25 Sodium 143 mmol/L (136-145) 08/10/17 04:25 Corrected Sodium 144 mmol/L (136-145) 08/10/17 04:25 Potassium 4.1 mmol/L (3.5-5.1) 08/10/17 04:25 Chloride 107 mmol/L (98-107) 08/10/17 04:25 Carbon Dioxide 27.7 mmol/L (21-32) 08/10/17 04:25 BUN 8 mg/dL (7-18) 08/10/17 04:25 Creatinine 1.15 mg/dL (0.70-1.30) 08/10/17 04:25 Est GFR (MDRD) Af Amer > 60 (>60) 08/10/17 04:25 Est GFR (MDRD) Non-Af > 60 (>60) 08/10/17 04:25 Glucose 129 mg/dL (65-99) H 08/10/17 04:25 POC Glucose (mg/dL) 163 mg/dL (65-99) H 08/10/17 20:45 Calcium 8.6 mg/dL (8.5-10.1) 08/10/17 04:25 Corrected Calcium 9.2 mg/dL (8.5-10.1) 08/10/17 04:25 Total Bilirubin 0.30 mg/dL (0.2-1.0) 08/10/17 04:25 AST 23 Units/L (15-37) 08/10/17 04:25 ALT 27 Units/L (12-78) 08/10/17 04:25 Alkaline Phosphatase 88 Units/L (46-116) 08/10/17 04:25 Total Protein 6.9 g/dL (6.4-8.2) 08/10/17 04:25 Albumin 3.3 g/dL (3.4-5.0) L 08/10/17 04:25 Globulin 3.6 g/dL (2.5-4.5) 08/10/17 04:25 Albumin/Globulin Ratio 0.9 Ratio (1.1-2.1) L 08/10/17 04:25 Amylase 37 Units/L (25-115) 08/08/17 04:19 Lipase 35 Units/L (73-393) L 08/08/17 04:19 Specimen Type Clean catch urine 08/07/17 20:20 Urine Color Yellow (YELLOW) 08/07/17 20:20 Urine Appearance Clear (CLEAR) 08/07/17 20:20 Urine pH 6.0 (5.0 - 8.0) 08/07/17 20:20 Ur Specific [place] 1.015 (1.000-1.030) 08/07/17 20:20 Urine Protein Negative (NEGATIVE) 08/07/17 20:20 Urine Glucose (UA) 1+ (NEGATIVE) 08/07/17 20:20 Urine Ketones Negative (NEGATIVE) 08/07/17 20:20 Urine Occult Blood Negative (NEGATIVE) 08/07/17 20:20 Urine Nitrite Negative (NEGATIVE) 08/07/17 20:20 Urine Bilirubin Negative (NEGATIVE) 08/07/17 20:20 Urine Urobilinogen Normal (NORMAL) 08/07/17 20:20 Ur Leukocyte Esterase Negative (NEGATIVE) 08/07/17 20:20 Tissue Pathology To follow 08/08/17 14:40 - Plan (1) Nausea & vomiting Status: Acute Qualifiers: Vomiting type: unspecified Vomiting Intractability: intractable Qualified Code(s): R11.2 - Nausea with vomiting, unspecified Plan: GASTRIC EMPTYING TODAY, PEPCID MG IV Q12H, PROTONIX 40MG IV BID, PROMETHAZINE 25MG IV Q4H, CONTINUE TO MONITOR (2) Unexplained weight loss Status: Acute Plan: GASTRIC EMPTYING TODAY, CONTINUE TO MONITOR
[2017-08-11] MEDS: NS 1000 ML 1,000 ML IV SCH ×2 (01:21→02:36)
[2017-08-11 05:30] LABS: BASOPHILS # (AUTO) 0.1 X10^3/uL (0.0-0.1); BASOPHILS % (AUTO) 1.1 % (0.2-1.0); EOSINOPHILS # (AUTO) 0.4 x10^3/uL (0.0-0.2); EOSINOPHILS % (AUTO) 8.4 % (0.9-2.9); HEMATOCRIT 33.9 % (42.0-54.0); HEMOGLOBIN 11.7 g/dL (13.5-18.0); LYMPHOCYTES # (AUTO) 1.2 X10^3/uL (1.3-2.9); LYMPHOCYTES % (AUTO) 23.3 % (21.0-51.0); MEAN CORPUSCULAR HEMOGLOBIN 30.1 pg (27.0-34.0); MEAN CORPUSCULAR HGB CONC 34.6 g/dL (33.0-35.0); MEAN CORPUSCULAR VOLUME 86.9 fL (80.0-100.0); MEAN PLATELET VOLUME 8.1 fL (7.4-11.0); MONOCYTES # (AUTO) 0.6 x10^3/uL (0.3-0.8); MONOCYTES % (AUTO) 12.3 % (0.0-13.0); NEUTROPHILS # (AUTO) 2.8 x10^3/uL (2.2-4.8); NEUTROPHILS % (AUTO) 54.9 % (42.0-75.0); PLATELET COUNT 183 X10^3/uL (150.0-450.0); RED CELL DISTRIBUTION WIDTH 15.8 % (11.6-16.5); WHITE BLOOD COUNT 5.1 X10^3/uL (3.6-10.0)
[2017-08-11 05:45] LABS: ALANINE AMINOTRANSFERASE 29 Units/L (12-78); ALBUMIN 3.5 g/dL (3.4-5.0); ALKALINE PHOSPHATASE 91 Units/L (46-116); ASPARTATE AMINO TRANSFERASE 28 Units/L (15-37); BLOOD UREA NITROGEN 10 mg/dL (7-18); CALCIUM 8.1 mg/dL (8.5-10.1); CARBON DIOXIDE 23.5 mmol/L (21-32); CHLORIDE 107 mmol/L (98-107); COR NA(FOR HYPERGLY) 143 mmol/L (136-145); CREATININE 1.15 mg/dL (0.70-1.30); SODIUM 142 mmol/L (136-145); TOTAL PROTEIN 7.2 g/dL (6.4-8.2); eGFR BLACK RACES > 60 (>60); eGFR NON BLACK RACES > 60 (>60)
[2017-08-11] MEDS: PROTONIX INJ 40 MG VIAL IVP SCH (08:53)
[2017-08-11] MEDS: PEPCID 20 MG IV PREMIX* 20 MG/50 ML BAG IV SCH (08:53)
[2017-08-11 10:03] VITALS: BP 144/64
== END 2017-08-11 11:50 | disposition home or self-care (01) ==
LOC: MED/SURG 16:38
PROVIDERS: ADMIT Internal Medicine; ATTEND Internal Medicine
PROC: 0DJ08ZZ Inspection of Upper Intestinal Tract, Via Natural or Artificial Opening Endoscopic (ICD-10-PCS; principal; 2017-08-08 13:00)
PROC: 0DB88ZX Excision of Small Intestine, Via Natural or Artificial Opening Endoscopic, Diagnostic (ICD-10-PCS; principal; 2017-08-08 13:00)
PROC: 0DB68ZX Excision of Stomach, Via Natural or Artificial Opening Endoscopic, Diagnostic (ICD-10-PCS; principal; 2017-08-08 13:00)
DX: R11.2 Nausea with vomiting, unspecified (principal); R63.4 Abnormal weight loss; K57.90 Diverticulosis of intestine, part unspecified, without perforation or abscess without bleeding; R10.13 Epigastric pain; K20.8 Other esophagitis; K29.70 Gastritis, unspecified, without bleeding
CPT/HCPCS: 36415; 74176; 78264; 80053; 81003; 82150; 83690; 85025; 88305; 88342; 99100; A4216; A4222; C9113; S0028; A4217; G0378; J0690; J1815; J2001; J3490

== ENCOUNTER 2017-09-14 07:04 | Day surgery (SDC) | payer OTHER ==
[2017-09-14] MEDS ORDERED: D5 LR 1000 ML 1,000 ML IV ONE (07:17)
[2017-09-14] MEDS ORDERED: DIPRIVAN VIAL 20 ML ONE (08:56)
[2017-09-14 09:51] VITALS: BP 122/62
== END 2017-09-14 09:55 | disposition home or self-care (01) | DRG 392 ==
LOC: SURG1 07:04
PROVIDERS: ATTEND Internal Medicine Gastroenterology
PROC: 0DBN8ZX Excision of Sigmoid Colon, Via Natural or Artificial Opening Endoscopic, Diagnostic (ICD-10-PCS; principal; 2017-09-14 08:30)
PROC: 0DJD8ZZ Inspection of Lower Intestinal Tract, Via Natural or Artificial Opening Endoscopic (ICD-10-PCS; principal; 2017-09-14 08:30)
PROC: 0DBK8ZX Excision of Ascending Colon, Via Natural or Artificial Opening Endoscopic, Diagnostic (ICD-10-PCS; principal; 2017-09-14 08:30)
PROC: 3E0H8GC Introduction of Other Therapeutic Substance into Lower GI, Via Natural or Artificial Opening Endoscopic (ICD-10-PCS; principal; 2017-09-14 08:30)
DX: R93.5 Abnormal findings on diagnostic imaging of other abdominal regions, including retroperitoneum (principal); C18.2 Malignant neoplasm of ascending colon; D64.89 Other specified anemias; R93.3 Abnormal findings on diagnostic imaging of other parts of digestive tract; Z80.0 Family history of malignant neoplasm of digestive organs; K63.5 Polyp of colon; K57.30 Diverticulosis of large intestine without perforation or abscess without bleeding; K64.0 First degree hemorrhoids; D12.5 Benign neoplasm of sigmoid colon
CPT/HCPCS: 99100; A4217; J3490; J7120

== ENCOUNTER 2019-09-13 12:08 | Observation (INO) ==
[2019-09-13 15:02] VITALS: BMI 20.9
--- NOTE | 2019-09-13 15:36 | CT ---
HISTORYAMS, LOCSTUDYCT HEAD WITHOUT CONTRASTCOMPARISONNoneTECHNIQUEAxial CT of the head is performed from the base of the skull through the vertex without contrast . Multiplaner reformats are generated from the original axial data.FINDINGSAge related cortical volume loss is observed. There is commensurate dilation of the lateral ventricles. Moderate chronic microangiopathic ischemic white matter changes of the supratentorial brain are observed. There is no evidence of an acute intracranial hemorrhage or extra-axial fluid collection. There is no mass effect, shift or cerebral edema. Atherosclerotic calcifications are associated with the cavernous ICA segments. There is no acute stage, large artery territorial infarct.Paranasal sinuses and mastoids are clear. Calvarium is intact.IMPRESSIONNo acute intracranial abnormalities. Chronic age related involutional changes and microangiopathic ischemic changes as discussed aboveRadiation dose reduction was achieved through individualized adjustment of kVP and/or mA, through adaptive statistical iterative reconstruction, and/or through automated tube current modulation.Electronically signed by: MEHNAZ ROSE (September 13, 2019 15:27:39)
[2019-09-13] MEDS: NS 1000 ML 1,000 ML IV SCH (16:00)
--- NOTE | 2019-09-13 16:09 | RAD ---
HISTORYSOB, AMS, LOCSTUDYCHEST, 1 [id number] heart is normal. The pulmonary vessels are normal. There are postop changes along the mediastinum and sternum. The lungs are mildly hyperinflated. No consolidation or effusion is seen.IMPRESSIONStable chronic changes with no acute abnormality seenElectronically signed by: ELOY NEWBERRY (September 13, 2019 16:08:05)
[2019-09-13 16:14] LABS: BASOPHILS % (AUTO) 0.9 % (0.2-1.0); EOSINOPHILS # (AUTO) 0.3 x10^3/uL (0.0-0.2); EOSINOPHILS % (AUTO) 6.1 % (0.9-2.9); HEMATOCRIT 39.3 % (42.0-54.0); HEMOGLOBIN 13.3 g/dL (13.5-18.0); LYMPHOCYTES # (AUTO) 1.5 X10^3/uL (1.3-2.9); LYMPHOCYTES % (AUTO) 35.3 % (21.0-51.0); MEAN CORPUSCULAR HGB CONC 33.9 g/dL (33.0-35.0); MEAN CORPUSCULAR VOLUME 94.3 fL (80.0-100.0); MEAN PLATELET VOLUME 8.1 fL (7.4-11.0); MONOCYTES # (AUTO) 0.4 x10^3/uL (0.3-0.8); MONOCYTES % (AUTO) 10.2 % (0.0-13.0); NEUTROPHILS % (AUTO) 47.5 % (42.0-75.0); PLATELET COUNT 172 X10^3/uL (150.0-450.0); RED BLOOD COUNT 4.16 X10^6/uL (4.7-6.0); RED CELL DISTRIBUTION WIDTH 14.8 % (11.6-16.5); WHITE BLOOD COUNT 4.3 X10^3/uL (3.6-10.0)
[2019-09-13 16:20] LABS: ALANINE AMINOTRANSFERASE 18 Units/L (12-78); ALBUMIN 3.9 g/dL (3.4-5.0); ALKALINE PHOSPHATASE 116 Units/L (46-116); ASPARTATE AMINO TRANSFERASE 30 Units/L (15-37); BLOOD UREA NITROGEN 21 mg/dL (7-18); CARBON DIOXIDE 28.7 mmol/L (21-32); CHLORIDE 103 mmol/L (98-107); COR NA(FOR HYPERGLY) 143 mmol/L (136-145); CREATININE 1.32 mg/dL (0.70-1.30); SODIUM 142 mmol/L (136-145); TOTAL PROTEIN 8.3 g/dL (6.4-8.2); eGFR NON BLACK RACES 57 (>60)
[2019-09-13 17:51] LABS: BILIRUBIN,URINE NEGATIVE (NEGATIVE); BLOOD/HEMOGLOBIN,URINE 1+ (NEGATIVE); GLUCOSE, URINE 1+ (NEGATIVE); KETONES,URINE NEGATIVE (NEGATIVE); LEUKOCYTE ESTERASE ,URINE NEGATIVE (NEGATIVE); NITRITES,URINE NEGATIVE (NEGATIVE); PROTEIN,URINE 1+ (NEGATIVE); UROBILINOGEN,URINE NORMAL (NORMAL)
[2019-09-13 18:02] LABS: APPEARANCE,URINE CLEAR (CLEAR); COLOR,URINE DARK YELLOW (YELLOW); RBC,URINE 0-2 /HPF (0-3)
[2019-09-13 18:03] LABS: BACTERIA,URINE NEGATIVE /HPF (NEGATIVE); SQUAMOUS EPITHELIAL CELL,UR NEGATIVE /HPF (NEGATIVE)
[2019-09-14] MEDS: NS 1000 ML 1,000 ML IV SCH ×2 (03:49→17:02)
[2019-09-14 07:22] LABS: EOSINOPHILS # (AUTO) 0.3 x10^3/uL (0.0-0.2); EOSINOPHILS % (AUTO) 5.8 % (0.9-2.9); HEMATOCRIT 34.2 % (42.0-54.0); HEMOGLOBIN 11.9 g/dL (13.5-18.0); LYMPHOCYTES # (AUTO) 1.5 X10^3/uL (1.3-2.9); LYMPHOCYTES % (AUTO) 32.8 % (21.0-51.0); MEAN CORPUSCULAR HEMOGLOBIN 32.7 pg (27.0-34.0); MEAN CORPUSCULAR HGB CONC 34.8 g/dL (33.0-35.0); MEAN CORPUSCULAR VOLUME 93.7 fL (80.0-100.0); MEAN PLATELET VOLUME 8.2 fL (7.4-11.0); MONOCYTES # (AUTO) 0.4 x10^3/uL (0.3-0.8); MONOCYTES % (AUTO) 8.3 % (0.0-13.0); NEUTROPHILS # (AUTO) 2.3 x10^3/uL (2.2-4.8); NEUTROPHILS % (AUTO) 52.1 % (42.0-75.0); PLATELET COUNT 158 X10^3/uL (150.0-450.0); RED BLOOD COUNT 3.64 X10^6/uL (4.7-6.0); RED CELL DISTRIBUTION WIDTH 14.8 % (11.6-16.5); WHITE BLOOD COUNT 4.5 X10^3/uL (3.6-10.0)
[2019-09-14 07:29] LABS: ALANINE AMINOTRANSFERASE 21 Units/L (12-78); ALBUMIN 3.3 g/dL (3.4-5.0); ALKALINE PHOSPHATASE 96 Units/L (46-116); ASPARTATE AMINO TRANSFERASE 24 Units/L (15-37); BLOOD UREA NITROGEN 17 mg/dL (7-18); CALCIUM 8.2 mg/dL (8.5-10.1); CARBON DIOXIDE 25.7 mmol/L (21-32); CHLORIDE 106 mmol/L (98-107); COR CA(FOR HYPOALB) 8.8 mg/dL (8.5-10.1); COR NA(FOR HYPERGLY) 143 mmol/L (136-145); CREATININE 1.15 mg/dL (0.70-1.30); SODIUM 142 mmol/L (136-145); TOTAL PROTEIN 6.9 g/dL (6.4-8.2); eGFR NON BLACK RACES > 60 (>60)
[2019-09-14] MEDS ORDERED: GLUCOPHAGE ONE ×2 (09:53→20:19)
[2019-09-14] MEDS: PROTONIX TAB 40 MG PO SCH (10:54)
[2019-09-14] MEDS: PEPCID TAB 20 MG PO SCH ×2 (10:54→21:15)
[2019-09-14] MEDS: GLUCOPHAGE PO SCH ×2 (10:54→21:15)
[2019-09-14] MEDS: SEROquel TAB 25 mg PO SCH ×2 (10:54→21:16)
--- NOTE | 2019-09-14 15:15 | DR.H&P ---
H&P - History & Physical for Day of: H&P Date: 09/13/19 - Chief Complaint Chief Complaint: CONFUSION, THREATENING TO HARM OR KILL FAMILY MEMBERS - History of Present Illness History of Present Illness: IS A 73 YEAR OLD PATIENT OF OURS. HE WAS A DIRECT ADMISSION DUE TO ALTERED MENTAL STATUS. PATIENTS FAMILY MEMBERS REPORT THAT HE HAS BEEN CONFUSED AND THREATENING TO KILL OR HARM THEM. SYMPTOMS STARTED APPROXIMATELY TWO DAYS PRIOR. PMH INCLUDES CAD, HTN, DEMENTIA, QUADRUPLE BYPASS, GERD, DIVERTICULOSIS, COLON CANCER, DIABETES, HYPOTHYROIDISM, ANXIETY, AND DEPRESSION. ON ARRIVAL TO THE HOSPITAL, VITALS WERE 97.6-72-18-100%-134/64. LABS WERE OBTAINED. ABNORMAL LAB VALUES INCLUDE THE FOLLOWING: RBC 4.16, HGB 13.3, HCT 39.3, BUN 21, CREATININE 1.32, GLUOSE 149, TOTAL PROTEIN 8.3. URINALYSIS IS UNREMARKABLE. A BRAIN CT WAS OBTAINED AND REVEALED: Age related cortical volume loss is observed. There is commensurate dilation of the lateral ventricles. Moderate chronic microangiopathic ischemic white matter changes of the suprate ntorial brain are observed. There is no evidence of an acute intracranial hemorrhage or extra-axial fluid collection. There is no mass effect, shift or cerebral edema. Atherosclerotic calcifications are associated with the cavernous ICA segments. There is no acute stage, large artery territorial infarct. Paranasal sinuses and mastoids are clear. Calvarium is intact. A CHEST XRAY WAS OBTAINED AND REVEALED: Stable chronic changes with no acute abnormality seen. HE WAS STARTED ON NORMLA SALINE AT 80 ML/HR, SEROQUEL 50MG PO BID, AND HIS REGULAR HOME MEDICATIONS OF PEPCID, METFORMIN, AND PROTONIX WERE RESUMED. OTHERWISE, WE PLAN TO OBTAIN AM LABS AND CONTINUE TO MONITOR. - Past Medical History Past Medical History: NM, Coronary Artery Disease, Hypertension, Dyslipidemia, Diabetes, Alzheimers, Dementia, Anxiety, Hypothyroidism, Anemia, GERD, Kidney Stones Additional Medical History: Cataracts, Seasonal Allergies, Hearing Loss bi laterally, Diveritculosis, Constipation, Gastrointestinal Ulcer - Past Surgical History Surgical History: Abdominal Surgery, Angioplasty/Stents, Appendectomy, Ch olecystectomy, Ortho Surgery Additional Surgical History: Lumbar spine surgery due to herniated L4-L5 disk - Family History Family Medical History: Diabetes Mellitus, Cancer, NM, Coronary Artery Disease, Heart Failure, Hypertension - Social History Type of Tobacco Use: None Does any household member use tobacco: No Alcohol Use: Occasionally Drug Use: None - Medications Home Medications: codeine Allergy (Verified 02/08/19 21:37) iodine Allergy (Verified 02/08/19 21:37) Sulfa (Sulfonamide Antibiotics) [SULFA] Allergy (Verified 02/08/19 21:37) zolpidem [From Ambien] Allergy (Verified 02/08/19 21:37) CONTINUE taking the following medications famotidine 20 mg PO BID 09/13/19 [History] metformin 500 mg PO BID 09/13/19 [History] pantoprazole 40 mg PO DAILY 09/13/19 [History] New Prescriptions quetiapine 50 mg PO BID #60 tab 09/14/19 [Rx] - Review of Systems Constitutional: No Symptoms Reported Eyes: No Symptoms Reported ENT: No Symptoms Reported Respiratory: No Symptoms Reported Cardiovascular: No Symptoms Reported Gastrointestinal: No Symptoms Reported Genitourinary: No Symptoms Reported Musculoskeletal: No Symptoms Reported Skin: No Symptoms Reported Neurological: Confusion - Physical Exam Vital Signs: Temperature 98 F Pulse Rate [Apical] 70 Respiratory Rate 20 Blood Pressure [Left Arm] 158/73 O2 Sat by Pulse Oximetry 100 Oriented: Person, Place Eyes: Normal Ear: Normal Nose: Normal Throat: Normal Respiratory: Clear Throughout Cardiovascular: Normal : Normal Auscultation: Bowel Sounds: Normal Palpation: Normal Tenderness: Normal Skin: Normal Musculoskeletal: Normal Psychiatric: Anxiety Mood Description: Anxious Affect: Anxious Speech Pattern: Clear - Assessment/Plan (1) Altered mental status Qualifiers: Altered mental status type: transient alteration of awareness Qualified Code(s): R40.4 - Transient alteration of awareness Status: Acute Plan: ADMIT, SEROQUEL 50MG PO BID, RESUME HOME MEDICATIONS, CONTINUE TO MONITOR (2) Behavior concern in adult Status: Acute (3) Threatening behavior Status: Acute (4) Dementia Status: Acute (5) History of NM (myocardial infarction) Status: Chronic (6) BPH (benign prostatic hypertrophy) Qualifiers: Lower urinary tract symptom presence: symptoms absent Qualified Code(s): N40.0 - Benign prostatic hyperplasia without lower urinary tract symptoms Status: Chronic (7) Diabetes mellitus, type 2 Qualifiers: Diabetes mellitus warehouse hand insulin use: with care home use Diabetes mellitus complication status: without complication Qualified Code(s): E11.9 - Type 2 diabetes mellitus without complications; Z79.4 - extract mixer (current) use of insulin Status: Chronic (8) HTN (hypertension) Qualifiers: Hypertension type: essential hypertension Qualified Code(s): I10 - Essential (primary) hypertension Status: Chronic (9) Hypothyroidism Qualifiers: Hypothyroidism type: acquired Qualified Code(s): E03.9 - Hypothyroidism, unspecified Status: Chronic (10) CAD (coronary artery disease) Qualifiers: Coronary Disease-Associated Artery/Lesion type: [place] artery [place] vs. transplanted heart: [place] heart Associated angina: angina presence unspecified Qualified Code(s): I25.10 - Atherosclerotic heart disease of [place] coronary artery without angina pectoris Status: Chronic (11) Hyperlipidemia Qualifiers: Hyperlipidemia type: mixed hyperlipidemia Qualified Code(s): E78.2 - Mixed hyperlipidemia Status: Chronic (12) GERD (gastroesophageal reflux disease) Qualifiers: Esophagitis presence: esophagitis presence not specified Qualified Code(s): K21.9 - Gastro-esophageal reflux disease without esophagitis Status: Chronic - Allergies Allergies/Adverse Reactions: Allergies Allergy/AdvReac Type Severity Reaction Status Date / Time codeine Allergy Verified 02/08/19 21:37 iodine Allergy Verified 02/08/19 21:37 Sulfa (Sulfonamide Allergy Verified 02/08/19 21:37 Antibiotics) [SULFA] zolpidem [From Ambien] Allergy Verified 02/08/19 21:37
[2019-09-15] MEDS: NS 1000 ML 1,000 ML IV SCH ×2 (06:04→18:16)
[2019-09-15 06:16] LABS: EOSINOPHILS # (AUTO) 0.2 x10^3/uL (0.0-0.2); EOSINOPHILS % (AUTO) 7.1 % (0.9-2.9); HEMOGLOBIN 12.1 g/dL (13.5-18.0); LYMPHOCYTES # (AUTO) 1.1 X10^3/uL (1.3-2.9); LYMPHOCYTES % (AUTO) 30.7 % (21.0-51.0); MEAN CORPUSCULAR HEMOGLOBIN 32.5 pg (27.0-34.0); MEAN CORPUSCULAR HGB CONC 34.5 g/dL (33.0-35.0); MEAN CORPUSCULAR VOLUME 94.2 fL (80.0-100.0); MEAN PLATELET VOLUME 7.9 fL (7.4-11.0); MONOCYTES # (AUTO) 0.1 x10^3/uL (0.3-0.8); MONOCYTES % (AUTO) 3.6 % (0.0-13.0); NEUTROPHILS % (AUTO) 57.6 % (42.0-75.0); PLATELET COUNT 170 X10^3/uL (150.0-450.0); RED BLOOD COUNT 3.72 X10^6/uL (4.7-6.0); RED CELL DISTRIBUTION WIDTH 15.2 % (11.6-16.5); WHITE BLOOD COUNT 3.5 X10^3/uL (3.6-10.0)
[2019-09-15 06:29] LABS: ALANINE AMINOTRANSFERASE 22 Units/L (12-78); ALBUMIN 3.3 g/dL (3.4-5.0); ALKALINE PHOSPHATASE 99 Units/L (46-116); ASPARTATE AMINO TRANSFERASE 20 Units/L (15-37); BLOOD UREA NITROGEN 10 mg/dL (7-18); CALCIUM 8.3 mg/dL (8.5-10.1); CARBON DIOXIDE 26.6 mmol/L (21-32); CHLORIDE 108 mmol/L (98-107); COR CA(FOR HYPOALB) 8.9 mg/dL (8.5-10.1); COR NA(FOR HYPERGLY) 146 mmol/L (136-145); CREATININE 1.03 mg/dL (0.70-1.30); SODIUM 144 mmol/L (136-145); TOTAL PROTEIN 6.9 g/dL (6.4-8.2); eGFR NON BLACK RACES > 60 (>60)
[2019-09-15] MEDS ORDERED: GLUCOPHAGE ONE ×2 (09:03→20:29)
[2019-09-15] MEDS: GLUCOPHAGE PO SCH ×2 (09:58→21:47)
[2019-09-15] MEDS: PROTONIX TAB 40 MG PO SCH (09:58)
[2019-09-15] MEDS: SEROquel TAB 25 mg PO SCH ×2 (09:58→21:47)
[2019-09-15] MEDS: PEPCID TAB 20 MG PO SCH ×2 (09:58→21:47)
[2019-09-15] MEDS: PROzac PO SCH (11:14)
[2019-09-16 05:14] LABS: ALANINE AMINOTRANSFERASE 19 Units/L (12-78); ALKALINE PHOSPHATASE 89 Units/L (46-116); ASPARTATE AMINO TRANSFERASE 16 Units/L (15-37); BLOOD UREA NITROGEN 9 mg/dL (7-18); CALCIUM 7.8 mg/dL (8.5-10.1); CARBON DIOXIDE 27.9 mmol/L (21-32); CHLORIDE 109 mmol/L (98-107); COR CA(FOR HYPOALB) 8.6 mg/dL (8.5-10.1); COR NA(FOR HYPERGLY) 146 mmol/L (136-145); CREATININE 1.07 mg/dL (0.70-1.30); SODIUM 145 mmol/L (136-145); TOTAL PROTEIN 6.3 g/dL (6.4-8.2); eGFR NON BLACK RACES > 60 (>60)
[2019-09-16 05:26] LABS: BASOPHILS % (AUTO) 1.1 % (0.2-1.0); EOSINOPHILS # (AUTO) 0.3 x10^3/uL (0.0-0.2); HEMATOCRIT 32.9 % (42.0-54.0); HEMOGLOBIN 11.3 g/dL (13.5-18.0); LYMPHOCYTES # (AUTO) 1.5 X10^3/uL (1.3-2.9); LYMPHOCYTES % (AUTO) 42.3 % (21.0-51.0); MEAN CORPUSCULAR HEMOGLOBIN 32.1 pg (27.0-34.0); MEAN CORPUSCULAR HGB CONC 34.4 g/dL (33.0-35.0); MEAN CORPUSCULAR VOLUME 93.4 fL (80.0-100.0); MEAN PLATELET VOLUME 7.5 fL (7.4-11.0); MONOCYTES # (AUTO) 0.2 x10^3/uL (0.3-0.8); MONOCYTES % (AUTO) 6.8 % (0.0-13.0); NEUTROPHILS # (AUTO) 1.5 x10^3/uL (2.2-4.8); NEUTROPHILS % (AUTO) 41.8 % (42.0-75.0); PLATELET COUNT 157 X10^3/uL (150.0-450.0); RED BLOOD COUNT 3.52 X10^6/uL (4.7-6.0); RED CELL DISTRIBUTION WIDTH 14.4 % (11.6-16.5); WHITE BLOOD COUNT 3.5 X10^3/uL (3.6-10.0)
[2019-09-16] MEDS: NS 1000 ML 1,000 ML IV SCH ×4 (06:19→21:23)
[2019-09-16] MEDS ORDERED: GLUCOPHAGE ONE ×2 (08:15→20:39)
[2019-09-16] MEDS: PROTONIX TAB 40 MG PO SCH (08:41)
[2019-09-16] MEDS: SEROquel TAB 25 mg PO SCH (08:41)
[2019-09-16] MEDS: PROzac PO SCH (08:41)
[2019-09-16] MEDS: PEPCID TAB 20 MG PO SCH ×2 (08:42→21:22)
[2019-09-16] MEDS: GLUCOPHAGE PO SCH ×2 (08:42→21:22)
[2019-09-16] MEDS ORDERED: PROzac PO ONE (10:00)
[2019-09-16] MEDS ORDERED: SEROquel TAB 25 mg PO ONE (10:00)
--- NOTE | 2019-09-16 16:31 | PCM.PROG ---
Progress Note - Progress Note for Day of Date of Exam: 09/15/19 - Subjective Subjective: IS BEING TREATED FOR ALTERED MENTAL STATUS, BEHAVIOR CONCERN IN ADULT, AND DEMENTIA. TODAY, HE IS ALERT AND OREINTED, LYING IN BED ON MORNING ROUNDS. HE CONTINUES TO BE EMOTIONAL THIS MORNING. HE REPORTS THAT HIS FAMILY IS LYING ON HIM. HE DENIES THREATENING BEHAVIOR. PATIENT IS CRYING AND ASKING TO GO HOME. ON EXAM, HEART IS REGULAR IN RATE AND RHYTHM. BILATERAL LUNGS ARE NOTED WITH DIMINISHED LUNG SOUNDS THROUGHOUT. ABDOMEN IS ROUND, SOFT, AND NON-TENDER WITH NORMAL BOWEL SOUNDS NOTED IN ALL QUADRANTS. HIS VITALS THIS MORNING ARE: 97.5-78-18-97%-128/68. LABS WERE OBTAINED. ABNORMAL LAB VALUES INCLUDE THE FOLLOWING: WBC 3.5, RBC 3.72, HGB 12.1, HCT 35.0, CHLORIDE 108, GLUC OSE 164, CALCIUM 8.3, ALBUMIN 3.3. HE IS CURRENTLY RECEIVING PEPCID 20MG PO DAILY, METFORMIN 500MG PO BID, PROTONIX 40MG PO DAILY, SEROQUEL 50MG PO BID, AND NS AT 80 ML/HR. TODAY, WE WILL ADD PROZAC 20MG PO DAILY. OTHERWISE, WE PLAN TO FOLLOW UP WITH AM LABS AND CONTINUE TO MONITOR. - Past Medical Family Social History Past Med/Fam/Surg Hx: No changes since H&P Allergies: Allergies codeine Allergy (Verified 02/08/19 21:37) iodine Allergy (Verified 02/08/19 21:37) Sulfa (Sulfonamide Antibiotics) [SULFA] Allergy (Verified 02/08/19 21:37) zolpidem [From Ambien] Allergy (Verified 02/08/19 21:37) - Review of Systems ROS: No change since H&P - Vital Signs and I&O's Vital Signs: Temperature 97.5 F Pulse Rate [Apical] 68 Respiratory Rate 20 Blood Pressure [Left Arm] 128/67 O2 Sat by Pulse Oximetry 100 Intake and Output: Intake & Output 09/14/19 09/15/19 09/16/19 09/17/19 11:59 11:59 11:59 11:59 Intake Total 1653 / 1653 2923 / 2923 3490 / 3490 1580 / 1580 Output Total 150 / 150 1050 / 1050 1950 / 1950 1300 / 1300 Balance 1503 / 1503 1873 / 1873 1540 / 1540 280 / 280 - Physical Exam Oriented: Person, Place Eyes: Normal Ear: Normal Nose: Normal Throat: Normal Respiratory: Generalized, Diminished Cardiovascular: Normal : Normal Auscultation: Bowel Sounds: Normal Palpation: Normal Tenderness: Normal Skin: Normal Musculoskeletal: Normal Psychiatric: Anxiety Mood Description: Anxious Affect: Anxious Speech Pattern: Clear, Appropriate - Laboratory and Diagnostics Result Diagrams: 09/16/19 04:47 09/16/19 04:47 Labs: Laboratory WBC 3.5 X10^3/uL (3.6-10.0) L 09/16/19 04:47 RBC 3.52 X10^6/uL (4.7-6.0) L 09/16/19 04:47 Hgb 11.3 g/dL (13.5-18.0) L 09/16/19 04:47 Hct 32.9 % (42.0-54.0) L 09/16/19 04:47 MCV 93.4 fL (80.0-100.0) 09/16/19 04:47 MCH 32.1 pg (27.0-34.0) 09/16/19 04:47 MCHC 34.4 g/dL (33.0-35.0) 09/16/19 04:47 RDW 14.4 % (11.6-16.5) 09/16/19 04:47 Plt Count 157 X10^3/uL (150.0-450.0) 09/16/19 04:47 MPV 7.5 fL (7.4-11.0) 09/16/19 04:47 Neut % (Auto) 41.8 % (42.0-75.0) L 09/16/19 04:47 Lymph % (Auto) 42.3 % (21.0-51.0) 09/16/19 04:47 [place] % (Auto) 6.8 % (0.0-13.0) 09/16/19 04:47 Eos % (Auto) 8.0 % (0.9-2.9) H 09/16/19 04:47 Baso % (Auto) 1.1 % (0.2-1.0) H 09/16/19 04:47 Neut # (Auto) 1.5 x10^3/uL (2.2-4.8) L 09/16/19 04:47 Lymph # (Auto) 1.5 X10^3/uL (1.3-2.9) 09/16/19 04:47 [place] # (Auto) 0.2 x10^3/uL (0.3-0.8) L 09/16/19 04:47 Eos # (Auto) 0.3 x10^3/uL (0.0-0.2) H 09/16/19 04:47 Baso # (Auto) 0.0 X10^3/uL (0.0-0.1) 09/16/19 04:47 Absolute Nucleated RBC 0.0 /100WBC 09/16/19 04:47 Sodium 145 mmol/L (136-145) 09/16/19 04:47 Corrected Sodium 146 mmol/L (136-145) H 09/16/19 04:47 Potassium 3.8 mmol/L (3.5-5.1) 09/16/19 04:47 Chloride 109 mmol/L (98-107) H 09/16/19 04:47 Carbon Dioxide 27.9 mmol/L (21-32) 09/16/19 04:47 BUN 9 mg/dL (7-18) 09/16/19 04:47 Creatinine 1.07 mg/dL (0.70-1.30) 09/16/19 04:47 Est GFR (MDRD) Af Amer > 60 (>60) 09/16/19 04:47 Est GFR (MDRD) Non-Af > 60 (>60) 09/16/19 04:47 Glucose 134 mg/dL (65-99) H 09/16/19 04:47 Calcium 7.8 mg/dL (8.5-10.1) L 09/16/19 04:47 Corrected Calcium 8.6 mg/dL (8.5-10.1) 09/16/19 04:47 Total Bilirubin 0.30 mg/dL (0.2-1.0) 09/16/19 04:47 AST 16 Units/L (15-37) 09/16/19 04:47 ALT 19 Units/L (12-78) 09/16/19 04:47 Alkaline Phosphatase 89 Units/L (46-116) 09/16/19 04:47 Total Protein 6.3 g/dL (6.4-8.2) L 09/16/19 04:47 Albumin 3.0 g/dL (3.4-5.0) L 09/16/19 04:47 Globulin 3.3 g/dL (2.5-4.5) 09/16/19 04:47 Albumin/Globulin Ratio 0.9 Ratio (1.1-2.1) L 09/16/19 04:47 Specimen Type Clean catch urine 09/13/19 17:38 Urine Color Dark yellow (YELLOW) 09/13/19 17:38 Urine Appearance Clear (CLEAR) 09/13/19 17:38 Urine pH 5.0 (5.0 - 8.0) 09/13/19 17:38 Ur Specific [place] 1.025 (1.000-1.030) 09/13/19 17:38 Urine Protein 1+ (NEGATIVE) 09/13/19 17:38 Urine Glucose (UA) 1+ (NEGATIVE) 09/13/19 17:38 Urine Ketones Negative (NEGATIVE) 09/13/19 17:38 Urine Occult Blood 1+ (NEGATIVE) 09/13/19 17:38 Urine Nitrite Negative (NEGATIVE) 09/13/19 17:38 Urine Bilirubin Negative (NEGATIVE) 09/13/19 17:38 Urine Urobilinogen Normal (NORMAL) 09/13/19 17:38 Ur Leukocyte Esterase Negative (NEGATIVE) 09/13/19 17:38 Urine RBC 0-2 /HPF (0-3) 09/13/19 17:38 Urine WBC None seen /HPF (0-5) 09/13/19 17:38 Ur Squamous Epith Cells Negative /HPF (NEGATIVE) 09/13/19 17:38 Urine Bacteria Negative /HPF (NEGATIVE) 09/13/19 17:38 Ur Culture Indicated? No/not indicated 09/13/19 17:38 - Plan (1) Altered mental status Status: Acute Qualifiers: Altered mental status type: transient alteration of awareness Qualified Code(s): R40.4 - Transient alteration of awareness Plan: SEROQUEL 50MG PO BID, PROZAC 20MG PO DAILY, RESUME HOME MEDICATIONS, CONTINUE TO MONITOR (2) Behavior concern in adult Status: Acute (3) Threatening behavior Status: Acute (4) Dementia Status: Chronic (5) History of [place] (myocardial infarction) Status: Chronic (6) BPH (benign prostatic hypertrophy) Status: Chronic Qualifiers: Lower urinary tract symptom presence: symptoms absent Qualified Code(s): N40.0 - Benign prostatic hyperplasia without lower urinary tract symptoms (7) Diabetes mellitus, type 2 Status: Chronic Qualifiers: Diabetes mellitus technician terminal and repeater insulin use: with technician terminal and repeater use Diabetes mellitus complication status: without complication Qualified Code(s): E11.9 - Type 2 diabetes mellitus without complications; Z79.4 - manager terminal (current) use of insulin (8) HTN (hypertension) Status: Chronic Qualifiers: Hypertension type: essential hypertension Qualified Code(s): I10 - Ess ential (primary) hypertension (9) Hypothyroidism Status: Chronic Qualifiers: Hypothyroidism type: acquired Qualified Code(s): E03.9 - Hypothyroidism, unspecified (10) CAD (coronary artery disease) Status: Chronic Qualifiers: Coronary Disease-Associated Artery/Lesion type: [place] artery [place] vs. transplanted heart: [place] heart Associated angina: angina presence unspe cified Qualified Code(s): I25.10 - Atherosclerotic heart disease of [place] coronary artery without angina pectoris (11) Hyperlipidemia Status: Chronic Qualifiers: Hyperlipidemia type: mixed hyperlipidemia Qualified Code(s): E78.2 - Mixed hyperlipidemia (12) GERD (gastroesophageal reflux disease) Status: Chronic Qualifiers: Esophagitis presence: esophagitis presence not specified Qualified Code(s): K21.9 - Gastro-esophageal reflux disease without esophagitis
--- NOTE | 2019-09-16 16:36 | PCM.PROG ---
Progress Note - Progress Note for Day of Date of Exam: 09/16/19 - Subjective Subjective: IS BEING TREATED FOR ALTERED MENTAL STATUS, BEHAVIOR CONCERN IN ADULT, AND DEMENTIA. TODAY, HE IS ALERT AND OREINTED, LYING IN BED ON MORNING ROUNDS. PATIENT IS CRYING AND ASKING TO GO HOME. WE SPOKE WITH FAMILY MEMBERS AND THEY REPORT THAT THEY ARE NO LONGER ABLE TO CARE FOR PATIENT AT HOME. ON EXAM, HEART IS REGULAR IN RATE AND RHYTHM. BILATERAL LUNGS ARE NOTED WITH DIMINISHED LUNG SOUNDS THROUGHOUT. ABDOMEN IS ROUND, SOFT, AND NON-TENDER WITH NORMAL BOWEL SOUNDS NOTED IN ALL QUADRANTS. HIS VITALS THIS MORNING ARE: 97.8-74-18-99%-165/71. LABS WERE OBTAINED. ABNORMAL LAB VALUES INCLUDE THE FOLLOWING: WBC 3.5, RBC 3.52, HGB 11.3, HCT 32.9, CHLORIDE 109, GLUCOSE 134, CALCIUM 7.8, TOTAL PROTEIN 6.3, ALBUMIN 3.0. HE IS CURRENTLY RECEIVING PEPCID 20MG PO DAILY, METFORMIN 500MG PO BID, PROTONIX 40MG PO DAILY, SEROQUEL 50MG PO BID, PROZAC 20MG PO DAILY, AND NS AT 80 ML/HR. TODAY, WE WILL INCREASE PROZAC TO 40MG PO DAILY AND INCREASED SEROQUEL TO 100MG PO DAILY. OTHERWISE, WE PLAN TO FOLLOW UP WITH AM LABS AND CONTINUE TO MONITOR. - Past Medical Family Social History Past Med/Fam/Surg Hx: No changes since H&P Allergies: Allergies codeine Allergy (Verified 02/08/19 21:37) iodine Allergy (Verified 02/08/19 21:37) Sulfa (Sulfonamide Antibiotics) [SULFA] Allergy (Verified 02/08/19 21:37) zolpidem [From Ambien] Allergy (Verified 02/08/19 21:37) - Review of Systems ROS: No change since H&P - Vital Signs and I&O's Vital Signs: Temperature 97.5 F Pulse Rate [Apical] 68 Respiratory Rate 20 Blood Pressure [Left Arm] 128/67 O2 Sat by Pulse Oximetry 100 Intake and Output: Intake & Output 09/14/19 09/15/19 09/16/19 09/17/19 11:59 11:59 11:59 11:59 Intake Total 1653 / 1653 2923 / 2923 3490 / 3490 1580 / 1580 Output Total 150 / 150 1050 / 1050 1949 / 1950 1300 / 1300 Balance 1503 / 1503 1873 / 1873 1540 / 1540 280 / 280 - Physical Exam Oriented: Person, Place Eyes: Normal Ear: Normal Nose: Normal Throat: Normal Respiratory: Generalized, Diminished Cardiovascular: Normal : Normal Auscultation: Bowel Sounds: Normal Palpation: Normal Tenderness: Normal Skin: Normal Musculoskeletal: Normal Psychiatric: Anxiety Mood Description: Anxious Affect: Anxious Speech Pattern: Clear, Appropriate - Laboratory and Diagnostics Result Diagrams: 09/16/19 04:47 09/16/19 04:47 Labs: Laboratory WBC 3.5 X10^3/uL (3.6-10.0) L 09/16/19 04:47 RBC 3.52 X10^6/uL (4.7-6.0) L 09/16/19 04:47 Hgb 11.3 g/dL (13.5-18.0) L 09/16/19 04:47 Hct 32.9 % (42.0-54.0) L 09/16/19 04:47 MCV 93.4 fL (80.0-100.0) 09/16/19 04:47 MCH 32.1 pg (27.0-34.0) 09/16/19 04:47 MCHC 34.4 g/dL (33.0-35.0) 09/16/19 04:47 RDW 14.4 % (11.6-16.5) 09/16/19 04:47 Plt Count 157 X10^3/uL (150.0-450.0) 09/16/19 04:47 MPV 7.5 fL (7.4-11.0) 09/16/19 04:47 Neut % (Auto) 41.8 % (42.0-75.0) L 09/16/19 04:47 Lymph % (Auto) 42.3 % (21.0-51.0) 09/16/19 04:47 [place] % (Auto) 6.8 % (0.0-13.0) 09/16/19 04:47 Eos % (Auto) 8.0 % (0.9-2.9) H 09/16/19 04:47 Baso % (Auto) 1.1 % (0.2-1.0) H 09/16/19 04:47 Neut # (Auto) 1.5 x10^3/uL (2.2-4.8) L 09/16/19 04:47 Lymph # (Auto) 1.5 X10^3/uL (1.3-2.9) 09/16/19 04:47 [place] # (Auto) 0.2 x10^3/uL (0.3-0.8) L 09/16/19 04:47 Eos # (Auto) 0.3 x10^3/uL (0.0-0.2) H 09/16/19 04:47 Baso # (Auto) 0.0 X10^3/uL (0.0-0.1) 09/16/19 04:47 Absolute Nucleated RBC 0.0 /100WBC 09/16/19 04:47 Sodium 145 mmol/L (136-145) 09/16/19 04:47 Corrected Sodium 146 mmol/L (136-145) H 09/16/19 04:47 Potassium 3.8 mmol/L (3.5-5.1) 09/16/19 04:47 Chloride 109 mmol/L (98-107) H 09/16/19 04:47 Carbon Dioxide 27.9 mmol/L (21-32) 09/16/19 04:47 BUN 9 mg/dL (7-18) 09/16/19 04:47 Creatinine 1.07 mg/dL (0.70-1.30) 09/16/19 04:47 Est GFR (MDRD) Af Amer > 60 (>60) 09/16/19 04:47 Est GFR (MDRD) Non-Af > 60 (>60) 09/16/19 04:47 Glucose 134 mg/dL (65-99) H 09/16/19 04:47 Calcium 7.8 mg/dL (8.5-10.1) L 09/16/19 04:47 Corrected Calcium 8.6 mg/dL (8.5-10.1) 09/16/19 04:47 Total Bilirubin 0.30 mg/dL (0.2-1.0) 09/16/19 04:47 AST 16 Units/L (15-37) 09/16/19 04:47 ALT 19 Units/L (12-78) 09/16/19 04:47 Alkaline Phosphatase 89 Units/L (46-116) 09/16/19 04:47 Total Protein 6.3 g/dL (6.4-8.2) L 09/16/19 04:47 Albumin 3.0 g/dL (3.4-5.0) L 09/16/19 04:47 Globulin 3.3 g/dL (2.5-4.5) 09/16/19 04:47 Albumin/Globulin Ratio 0.9 Ratio (1.1-2.1) L 09/16/19 04:47 Specimen Type Clean catch urine 09/13/19 17:38 Urine Color Dark yellow (YELLOW) 09/13/19 17:38 Urine Appearance Clear (CLEAR) 09/13/19 17:38 Urine pH 5.0 (5.0 - 8.0) 09/13/19 17:38 Ur Specific [place] 1.025 (1.000-1.030) 09/13/19 17:38 Urine Protein 1+ (NEGATIVE) 09/13/19 17:38 Urine Glucose (UA) 1+ (NEGATIVE) 09/13/19 17:38 Urine Ketones Negative (NEGATIVE) 09/13/19 17:38 Urine Occult Blood 1+ (NEGATIVE) 09/13/19 17:38 Urine Nitrite Negative (NEGATIVE) 09/13/19 17:38 Urine Bilirubin Negative (NEGATIVE) 09/13/19 17:38 Urine Urobilinogen Normal (NORMAL) 09/13/19 17:38 Ur Leukocyte Esterase Negative (NEGATIVE) 09/13/19 17:38 Urine RBC 0-2 /HPF (0-3) 09/13/19 17:38 Urine WBC None seen /HPF (0-5) 09/13/19 17:38 Ur Squamous Epith Cells Negative /HPF (NEGATIVE) 09/13/19 17:38 Urine Bacteria Negative /HPF (NEGATIVE) 09/13/19 17:38 Ur Culture Indicated? No/not indicated 09/13/19 17:38 - Plan (1) Altered mental status Status: Acute Qualifiers: Altered mental status type: transient alteration of awareness Qualified Code(s): R40.4 - Transient alteration of awareness Plan: SEROQUEL 100MG PO BID, PROZAC 40MG PO DAILY, RESUME HOME MEDICATIONS, CONTINUE TO MONITOR (2) Behavior concern in adult Status: Acute (3) Threatening behavior Status: Acute (4) Dementia Status: Chronic Qualifiers: Dementia type: unspecified type Dementia behavioral disturbance: with behavioral disturbance Qualified Code(s): F03.91 - Unspecified dementia with behavioral disturbance (5) History of [place] (myocardial infarction) Status: Chronic (6) BPH (benign prostatic hypertrophy) Status: Chronic Qualifiers: Lower urinary tract symptom presence: symptoms absent Qualified Code(s): N40.0 - Benign prostatic hyperplasia without lower urinary tract symptoms (7) Diabetes mellitus, type 2 Status: Chronic Qualifiers: Diabetes mellitus watermelon harvesting supervisor insulin use: with watermelon harvesting supervisor use Diabetes mellitus complication status: without complication Qualified Code(s): E11.9 - Type 2 diabetes mellitus without complications; Z79.4 - [facility] (current) use of insulin (8) HTN (hypertension) Status: Chronic Qualifiers: Hypertension type: essential hypertension Qualified Code(s): I10 - Essential (primary) hypertension (9) Hypothyroidism Status: Chronic Qualifiers: Hypothyroidism type: acquired Qualified Code(s): E03.9 - Hypothyroidism, unspecified (10) CAD (coronary artery disease) Status: Chronic Qualifiers: Coronary Disease-Associated Artery/Lesion type: [place] artery [place] vs. transplanted heart: [place] heart Associated angina: angina presence unspecified Qualified Code(s): I25.10 - Atherosclerotic heart disease of [place] coronary artery without angina pectoris (11) Hyperlipidemia Status: Chronic Qualifiers: Hyperlipidemia type: mixed hyperlipidemia Qualified Code(s): E78.2 - Mixed hyperlipidemia (12) GERD (gastroesophageal reflux disease) Status: Chronic Qualifiers: Esophagitis presence: esophagitis presence not specified Qualified Code(s): K21.9 - Gastro-esophageal reflux disease without esophagitis
[2019-09-17 05:11] LABS: BASOPHILS % (AUTO) 1.1 % (0.2-1.0); EOSINOPHILS # (AUTO) 0.3 x10^3/uL (0.0-0.2); EOSINOPHILS % (AUTO) 9.7 % (0.9-2.9); HEMATOCRIT 31.8 % (42.0-54.0); HEMOGLOBIN 10.9 g/dL (13.5-18.0); LYMPHOCYTES # (AUTO) 1.2 X10^3/uL (1.3-2.9); LYMPHOCYTES % (AUTO) 34.7 % (21.0-51.0); MEAN CORPUSCULAR HEMOGLOBIN 32.4 pg (27.0-34.0); MEAN CORPUSCULAR HGB CONC 34.3 g/dL (33.0-35.0); MEAN CORPUSCULAR VOLUME 94.3 fL (80.0-100.0); MEAN PLATELET VOLUME 7.8 fL (7.4-11.0); MONOCYTES # (AUTO) 0.2 x10^3/uL (0.3-0.8); MONOCYTES % (AUTO) 6.6 % (0.0-13.0); NEUTROPHILS # (AUTO) 1.6 x10^3/uL (2.2-4.8); NEUTROPHILS % (AUTO) 47.9 % (42.0-75.0); PLATELET COUNT 149 X10^3/uL (150.0-450.0); RED BLOOD COUNT 3.37 X10^6/uL (4.7-6.0); RED CELL DISTRIBUTION WIDTH 14.7 % (11.6-16.5); WHITE BLOOD COUNT 3.4 X10^3/uL (3.6-10.0)
[2019-09-17 05:23] LABS: ALANINE AMINOTRANSFERASE 18 Units/L (12-78); ALKALINE PHOSPHATASE 90 Units/L (46-116); ASPARTATE AMINO TRANSFERASE 19 Units/L (15-37); BLOOD UREA NITROGEN 8 mg/dL (7-18); CALCIUM 7.9 mg/dL (8.5-10.1); CARBON DIOXIDE 26.5 mmol/L (21-32); CHLORIDE 109 mmol/L (98-107); COR CA(FOR HYPOALB) 8.7 mg/dL (8.5-10.1); COR NA(FOR HYPERGLY) 145 mmol/L (136-145); CREATININE 1.14 mg/dL (0.70-1.30); SODIUM 144 mmol/L (136-145); TOTAL PROTEIN 6.5 g/dL (6.4-8.2); eGFR NON BLACK RACES > 60 (>60)
[2019-09-17] MEDS ORDERED: GLUCOPHAGE ONE (08:57)
[2019-09-17] MEDS ORDERED: PROzac PO SCH (09:00)
[2019-09-17] MEDS: PEPCID TAB 20 MG PO SCH (09:19)
[2019-09-17] MEDS: GLUCOPHAGE PO SCH (09:19)
[2019-09-17] MEDS: PROTONIX TAB 40 MG PO SCH (09:19)
--- NOTE | 2019-09-17 10:49 | PCM.PROG ---
Progress Note - Progress Note for Day of Date of Exam: 09/17/19 - Subjective Subjective: IS BEING TREATED FOR ALTERED MENTAL STATUS, BEHAVIOR CONCERN IN ADULT, AND DEMENTIA. TODAY, HE IS ALERT AND OREINTED, SITTING ON THE SIDE OF THE BED ON MORNING ROUNDS. STAFF REPORTS THAT PATIENT HAD A GOOD NIGHT AND SLEPT WELL. WE SPOKE WITH FAMILY MEMBERS AND THEY REPORT THAT THEY ARE NO LONGER ABLE TO CARE FOR PATIENT AT HOME. ON EXAM, HEART IS REGULAR IN RATE AND RHYTHM. BILATERAL LUNGS ARE NOTED WITH DIMINISHED LUNG SOUNDS THROUGHOUT. ABDOMEN IS ROUND, SOFT, AND NON-TENDER WITH NORMAL BOWEL SOUNDS NOTED IN ALL QUADRANTS. HIS VITALS THIS MORNING ARE: 97.9-75-22-97%-149/67. LABS WERE OBTAINED. ABNORMAL LAB VALUES INCLUDE THE FOLLOWING: WBC 3.4, RBC 3.37, HGB 10.9, HCT 31.8, PLT COUNT 149, CHLORIDE 109, GLUCOSE 155, CALCIUM 7.9, ALBUMIN 3.0. HE IS CURRENTLY RECEIVING PEPCID 20MG PO DAILY, METFORMIN 500MG PO BID, PROTONIX 40MG PO DAILY, SEROQUEL 100MG PO BID, PROZAC 40MG PO DAILY, AND NS AT 80 ML/HR. WE WILL CONTINUE WITH CURRENT PLAN OF CARE TODAY AND CONSULT WITH [facility]. PATIENT IS IN STABLE CONDITION AND IS CLEARED FOR TRANSFER SHOULD THEY DECIDE TO TAKE HIM. OTHERWISE, WE PLAN TO FOLLOW UP WITH AM LABS AND CONTINUE TO MONITOR. - Past Medical Family Social History Past Med/Fam/Surg Hx: No changes since H&P Allergies: Allergies codeine Allergy (Verified 02/08/19 21:37) iodine Allergy (Verified 02/08/19 21:37) Sulfa (Sulfonamide Antibiotics) [SULFA] Allergy (Verified 02/08/19 21:37) zolpidem [From Ambien] Allergy (Verified 02/08/19 21:37) - Review of Systems ROS: No change since H&P - Vital Signs and I&O's Vital Signs: Temperature 97.9 F Pulse Rate [Brachial] 75 Pulse Rate [Apical] 68 Respiratory Rate 22 Blood Pressure [Left Arm] 149/67 O2 Sat by Pulse Oximetry 97 Intake and Output: Intake & Output 09/14/19 09/15/19 09/16/19 09/17/19 11:59 11:59 11:59 11:59 Intake Total 1653 / 1653 2923 / 2923 3490 / 3490 2660 / 2660 Output Total 150 / 150 1050 / 1050 1950 / 1950 1825 / 1825 Balance 1503 / 1503 1873 / 1873 1540 / 1540 835 / 835 - Physical Exam Oriented: Person, Place Eyes: Normal Ear: Normal Nose: Normal Throat: Normal Respiratory: Generalized, Diminished Cardiovascular: Normal : Normal Auscultation: Bowel Sounds: Normal Tenderness: Normal Skin: Normal Musculoskeletal: Normal Psychiatric: Anxiety Mood Description: Anxious Affect: Anxious Speech Pattern: Clear, Appropriate - Laboratory and Diagnostics Result Diagrams: 09/17/19 04:48 09/17/19 04:48 Labs: Laboratory WBC 3.4 X10^3/uL (3.6-10.0) L 09/17/19 04:48 RBC 3.37 X10^6/uL (4.7-6.0) L 09/17/19 04:48 Hgb 10.9 g/dL (13.5-18.0) L 09/17/19 04:48 Hct 31.8 % (42.0-54.0) L 09/17/19 04:48 MCV 94.3 fL (80.0-100.0) 09/17/19 04:48 MCH 32.4 pg (27.0-34.0) 09/17/19 04:48 MCHC 34.3 g/dL (33.0-35.0) 09/17/19 04:48 RDW 14.7 % (11.6-16.5) 09/17/19 04:48 Plt Count 149 X10^3/uL (150.0-450.0) L 09/17/19 04:48 MPV 7.8 fL (7.4-11.0) 09/17/19 04:48 Neut % (Auto) 47.9 % (42.0-75.0) 09/17/19 04:48 Lymph % (Auto) 34.7 % (21.0-51.0) 09/17/19 04:48 [place] % (Auto) 6.6 % (0.0-13.0) 09/17/19 04:48 Eos % (Auto) 9.7 % (0.9-2.9) H 09/17/19 04:48 Baso % (Auto) 1.1 % (0.2-1.0) H 09/17/19 04:48 Neut # (Auto) 1.6 x10^3/uL (2.2-4.8) L 09/17/19 04:48 Lymph # (Auto) 1.2 X10^3/uL (1.3-2.9) L 09/17/19 04:48 [place] # (Auto) 0.2 x10^3/uL (0.3-0.8) L 09/17/19 04:48 Eos # (Auto) 0.3 x10^3/uL (0.0-0.2) H 09/17/19 04:48 Baso # (Auto) 0.0 X10^3/uL (0.0-0.1) 09/17/19 04:48 Absolute Nucleated RBC 0.1 /100WBC 09/17/19 04:48 Sodium 144 mmol/L (136-145) 09/17/19 04:48 Corrected Sodium 145 mmol/L (136-145) 09/17/19 04:48 Potassium 3.5 mmol/L (3.5-5.1) 09/17/19 04:48 Chloride 109 mmol/L (98-107) H 09/17/19 04:48 Carbon Dioxide 26.5 mmol/L (21-32) 09/17/19 04:48 BUN 8 mg/dL (7-18) 09/17/19 04:48 Creatinine 1.14 mg/dL (0.70-1.30) 09/17/19 04:48 Est GFR (MDRD) Af Amer > 60 (>60) 09/17/19 04:48 Est GFR (MDRD) Non-Af > 60 (>60) 09/17/19 04:48 Glucose 155 mg/dL (65-99) H 09/17/19 04:48 Calcium 7.9 mg/dL (8.5-10.1) L 09/17/19 04:48 Corrected Calcium 8.7 mg/dL (8.5-10.1) 09/17/19 04:48 Total Bilirubin 0.30 mg/dL (0.2-1.0) 09/17/19 04:48 AST 19 Units/L (15-37) 09/17/19 04:48 ALT 18 Units/L (12-78) 09/17/19 04:48 Alkaline Phosphatase 90 Units/L (46-116) 09/17/19 04:48 Total Protein 6.5 g/dL (6.4-8.2) 09/17/19 04:48 Albumin 3.0 g/dL (3.4-5.0) L 09/17/19 04:48 Globulin 3.5 g/dL (2.5-4.5) 09/17/19 04:48 Albumin/Globulin Ratio 0.9 Ratio (1.1-2.1) L 09/17/19 04:48 Specimen Type Clean catch urine 09/13/19 17:38 Urine Color Dark yellow (YELLOW) 09/13/19 17:38 Urine Appearance Clear (CLEAR) 09/13/19 17:38 Urine pH 5.0 (5.0 - 8.0) 09/13/19 17:38 Ur Specific [place] 1.025 (1.000-1.030) 09/13/19 17:38 Urine Protein 1+ (NEGATIVE) 09/13/19 17:38 Urine Glucose (UA) 1+ (NEGATIVE) 09/13/19 17:38 Urine Ketones Negative (NEGATIVE) 09/13/19 17:38 Urine Occult Blood 1+ (NEGATIVE) 09/13/19 17:38 Urine Nitrite Negative (NEGATIVE) 09/13/19 17:38 Urine Bilirubin Negative (NEGATIVE) 09/13/19 17:38 Urine Urobilinogen Normal (NORMAL) 09/13/19 17:38 Ur Leukocyte Esterase Negative (NEGATIVE) 09/13/19 17:38 Urine RBC 0-2 /HPF (0-3) 09/13/19 17:38 Urine WBC None seen /HPF (0-5) 09/13/19 17:38 Ur Squamous Epith Cells Negative /HPF (NEGATIVE) 09/13/19 17:38 Urine Bacteria Negative /HPF (NEGATIVE) 09/13/19 17:38 Ur Culture Indicated? No/not indicated 09/13/19 17:38 - Plan (1) Altered mental status Status: Acute Qualifiers: Altered mental status type: transient alteration of awareness Qualified Code(s): R40.4 - Transient alteration of awareness Plan: SEROQUEL 100MG PO BID, PROZAC 40MG PO DAILY, RESUME HOME MEDICATIONS, CONTINUE TO MONITOR (2) Behavior concern in adult Status: Acute (3) Threatening behavior Status: Acute (4) Dementia Status: Chronic Qualifiers: Dementia type: unspecified type Dementia behavioral disturbance: with behavioral disturbance Qualified Code(s): F03.91 - Unspecified dementia with behavioral disturbance (5) History of [place] (myocardial infarction) Status: Chronic (6) BPH (benign prostatic hypertrophy) Status: Chronic Qualifiers: Lower urinary tract symptom presence: symptoms absent Qualified Code(s): N40.0 - Benign prostatic hyperplasia without lower urinary tract symptoms (7) Diabetes mellitus, type 2 Status: Chronic Qualifiers: Diabetes mellitus intermediate card tender insulin use: with intermediate card tender use Diabetes mellitus complication status: without complication Qualified Code(s): E11.9 - Type 2 diabetes mellitus without complications; Z79.4 - [facility] (current) use of insulin (8) HTN (hypertension) Status: Chronic Qualifiers: Hypertension type: essential hypertension Qualified Code(s): I10 - Essential (primary) hypertension (9) Hypothyroidism Status: Chronic Qualifiers: Hypothyroidism type: acquired Qualified Code(s): E03.9 - Hypothyroidism, unspecified (10) CAD (coronary artery disease) Status: Chronic Qualifiers: Coronary Disease-Associated Artery/Lesion type: [place] artery [place] vs. transplanted heart: [place] heart Associated angina: angina presence unspecified Qualified Code(s): I25.10 - Atherosclerotic heart disease of [place] coronary artery without angina pectoris (11) Hyperlipidemia Status: Chronic Qualifiers: Hyperlipidemia type: mixed hyperlipidemia Qualified Code(s): E78.2 - Mixed hyperlipidemia (12) GERD (gastroesophageal reflux disease) Status: Chronic Qualifiers: Esophagitis presence: esophagitis presence not specified Qualified Code(s): K21.9 - Gastro-esophageal reflux disease without esophagitis
[2019-09-17] MEDS: NS 1000 ML 1,000 ML IV SCH (11:06)
[2019-09-17 16:21] VITALS: BP 151/68
== END 2019-09-17 18:40 ==
LOC: OBS → MED/SURG 14:30
PROVIDERS: ADMIT Internal Medicine; ATTEND Internal Medicine
DX: E03.8 Other specified hypothyroidism; I25.10 Atherosclerotic heart disease of native coronary artery without angina pectoris; R40.4 Transient alteration of awareness; E78.2 Mixed hyperlipidemia; F41.8 Other specified anxiety disorders; R26.89 Other abnormalities of gait and mobility; F03.91 Unspecified dementia, unspecified severity, with behavioral disturbance; K21.9 Gastro-esophageal reflux disease without esophagitis; N40.0 Benign prostatic hyperplasia without lower urinary tract symptoms; Z79.4 Long term (current) use of insulin; E11.65 Type 2 diabetes mellitus with hyperglycemia; R94.4 Abnormal results of kidney function studies
CPT/HCPCS: 36415; 70450; 71010; 71045; 80053; 81001; 85025; 96360; 96361; 97116; 97161; A4216; A4222; G0378; J7030

== ENCOUNTER 2020-09-07 12:29 | Inpatient (IN) ==
[2020-09-07] MEDS ORDERED: HumuLIN R SUBCUT PRN (13:01)
[2020-09-07 13:33] LABS: BASOPHILS % (AUTO) 0.4 % (0.2-1.0); EOSINOPHILS # (AUTO) 0.6 x10^3/uL (0.0-0.2); EOSINOPHILS % (AUTO) 5.7 % (0.9-2.9); HEMATOCRIT 31.9 % (42.0-54.0); HEMOGLOBIN 10.5 g/dL (13.5-18.0); LYMPHOCYTES # (AUTO) 1.9 X10^3/uL (1.3-2.9); LYMPHOCYTES % (AUTO) 18.1 % (21.0-51.0); MEAN CORPUSCULAR HEMOGLOBIN 28.9 pg (27.0-34.0); MEAN CORPUSCULAR HGB CONC 32.9 g/dL (33.0-35.0); MEAN CORPUSCULAR VOLUME 87.8 fL (80.0-100.0); MEAN PLATELET VOLUME 8.5 fL (7.4-11.0); MONOCYTES # (AUTO) 0.6 x10^3/uL (0.3-0.8); MONOCYTES % (AUTO) 6.1 % (0.0-13.0); NEUTROPHILS # (AUTO) 7.2 x10^3/uL (2.2-4.8); NEUTROPHILS % (AUTO) 69.7 % (42.0-75.0); PLATELET COUNT 175 X10^3/uL (150.0-450.0); RED BLOOD COUNT 3.63 X10^6/uL (4.7-6.0); RED CELL DISTRIBUTION WIDTH 16.4 % (11.6-16.5); WHITE BLOOD COUNT 10.3 X10^3/uL (3.6-10.0)
[2020-09-07 14:05] LABS: ALANINE AMINOTRANSFERASE 10 Units/L (12-78); ALBUMIN 3.1 g/dL (3.4-5.0); ALKALINE PHOSPHATASE 92 Units/L (46-116); ASPARTATE AMINO TRANSFERASE 22 Units/L (15-37); BLOOD UREA NITROGEN 21 mg/dL (7-18); CALCIUM 9.1 mg/dL (8.5-10.1); CARBON DIOXIDE 24.4 mmol/L (21-32); CHLORIDE 106 mmol/L (98-107); CKMB % 1.5 % (<4); COR CA(FOR HYPOALB) 9.8 mg/dL (8.5-10.1); COR NA(FOR HYPERGLY) 145 mmol/L (136-145); CREATINE KINASE 67 Units/L (39-308); CREATINE KINASE MB < 1.0 ng/mL (0-4.0); CREATININE 1.13 mg/dL (0.70-1.30); SODIUM 144 mmol/L (136-145); TOTAL PROTEIN 7.9 g/dL (6.4-8.2); TROPONIN I < 0.02 ng/mL (0-1.5); eGFR NON BLACK RACES > 60 (>60)
--- NOTE | 2020-09-07 14:16 | RAD ---
HISTORYInjury, pain right kneeSTUDYRight knee two viewsCOMPARISONNoneFINDINGSThe patient is status post total knee arthroplasty. Position and alignment appears anatomic. There is no definite evidence for fracture or loosening. No definite joint effusion identified. No periarticular soft tissue abnormality is identified. Surgical clips are identified along the medial aspect at the joint lineIMPRESSIONStatus post right TKA in good position without definite acute findingsElectronically signed by: NEHEMIAH DUBON (Sep 07, 2020 14:14:36)
--- NOTE | 2020-09-07 14:19 | RAD ---
HISTORYShortness of breath, hypotensionSTUDYChest AP [id number]/2021FINDINGSPatient is status post median sternotomy and CABG. The heart is w ithin normal limits in size. The ihsan are normal. The lung ball are clear. No pleural effusions are identified. Bony thorax is unremarkable.IMPRESSIONNo significant abnormality identifiedElectronicall y signed by: NEHEMIAH DUBON (Sep 07, 2020 14:16:53)
[2020-09-07 15:10] VITALS: BMI 19.3
[2020-09-07] MEDS: NS 1000 ML 1,000 ML IV SCH ×3 (15:46→23:07)
[2020-09-07 19:56] LABS: CKMB % 1.5 % (<4); CREATINE KINASE 68 Units/L (39-308); CREATINE KINASE MB < 1.0 ng/mL (0-4.0); TROPONIN I < 0.02 ng/mL (0-1.5)
[2020-09-07] MEDS: SNACK - Diabetic Appropriate PO SCH (21:10)
[2020-09-08 01:54] LABS: CKMB % 1.4 % (<4); CREATINE KINASE 70 Units/L (39-308); CREATINE KINASE MB < 1.0 ng/mL (0-4.0); TROPONIN I < 0.02 ng/mL (0-1.5)
[2020-09-08 04:47] LABS: BASOPHILS # (AUTO) 0.1 X10^3/uL (0.0-0.1); BASOPHILS % (AUTO) 0.8 % (0.2-1.0); EOSINOPHILS # (AUTO) 0.8 x10^3/uL (0.0-0.2); EOSINOPHILS % (AUTO) 10.2 % (0.9-2.9); HEMATOCRIT 27.1 % (42.0-54.0); HEMOGLOBIN 8.9 g/dL (13.5-18.0); LYMPHOCYTES # (AUTO) 1.6 X10^3/uL (1.3-2.9); LYMPHOCYTES % (AUTO) 20.7 % (21.0-51.0); MEAN CORPUSCULAR HEMOGLOBIN 28.7 pg (27.0-34.0); MEAN CORPUSCULAR HGB CONC 32.9 g/dL (33.0-35.0); MEAN CORPUSCULAR VOLUME 87.1 fL (80.0-100.0); MEAN PLATELET VOLUME 8.5 fL (7.4-11.0); MONOCYTES # (AUTO) 0.5 x10^3/uL (0.3-0.8); MONOCYTES % (AUTO) 6.2 % (0.0-13.0); NEUTROPHILS # (AUTO) 4.7 x10^3/uL (2.2-4.8); NEUTROPHILS % (AUTO) 62.1 % (42.0-75.0); PLATELET COUNT 150 X10^3/uL (150.0-450.0); RED BLOOD COUNT 3.11 X10^6/uL (4.7-6.0); RED CELL DISTRIBUTION WIDTH 16.4 % (11.6-16.5); WHITE BLOOD COUNT 7.5 X10^3/uL (3.6-10.0)
[2020-09-08 05:01] LABS: ALANINE AMINOTRANSFERASE 17 Units/L (12-78); ALBUMIN 2.6 g/dL (3.4-5.0); ALKALINE PHOSPHATASE 73 Units/L (46-116); ASPARTATE AMINO TRANSFERASE 18 Units/L (15-37); BLOOD UREA NITROGEN 18 mg/dL (7-18); CALCIUM 8.2 mg/dL (8.5-10.1); CARBON DIOXIDE 20.9 mmol/L (21-32); CHLORIDE 109 mmol/L (98-107); COR CA(FOR HYPOALB) 9.3 mg/dL (8.5-10.1); CREATININE 0.91 mg/dL (0.70-1.30); SODIUM 145 mmol/L (136-145); TOTAL PROTEIN 6.6 g/dL (6.4-8.2); eGFR NON BLACK RACES > 60 (>60)
[2020-09-08] MEDS: NS 1000 ML 1,000 ML IV SCH ×4 (05:07→21:09)
[2020-09-08 09:50] LABS: URIC ACID 3.8 mg/dL (3.5-7.2)
--- NOTE | 2020-09-08 10:35 | DR.H&P ---
H&P - History & Physical for Day of: H&P Date: 09/07/20 - Chief Complaint Chief Complaint: RIHT KNEE PAIN, SWELLING, WEAKNESS, FREQUENT FALLS - History of Present Illness History of Present Illness: IS A 74 YEAR OLD PATIENT OF OURS WHO PRESENTED TO THE OFFICE TODAY WITH COMPLAINTS OF WEAKNESS, FREQUENT FALLS, AND RIGHT KNEE PAIN AND SWELLING. PATIENT REPORTS THAT HE FELL ABOUT TWO DAYS AGO. SINCE THEN, HE HAS HAD SEVERE RIGHT KNEE PAIN. HE REPORTS THAT HE WAS AMBULATORY WITH A [facility] PRIOR TO FALLING, BUT HAS BEEN UNABLE TO AMBULATE SINCE DUE TO SEVERE PAIN AND WEAKNESS. PATIENTS SPOUSE REPORTS THAT HE HAS HAD A DECREASED APPETITE AND DECREASED ORAL INTAKE. HE DESCRIBES PAIN TO RIGHT KNEE CONSTANT, DULL, AND CURRENTLY RATES IT A 5/10. HE DOES HAVE A HISTORY OF A RIGHT KNEE REPLACEMENT. OTHER PMH INCLUDES ALZHEIMERS, DEMENTIA, PARKINSONS, CAD, HTN, GERD, DIVERTICULOSIS, KIDNEY STONES, ARTHRITIS, PSORIASIS, DM II, HYPOTHYRODISM, COLON CANCER, ANXIETY, DEPRESSION, APPENDECTOMY, CABG, AND ABDOMINAL SURGERY. EXAMINATION REVEALED MODERATE NON-PITTING EDEMA OF THE RIGHT KNEE WITH ERYTHEMA. HIS BLOOD PRESSURE IN THE OFFICE WAS NOTED TO BE 80s/40s. HE WAS ADMITTED TO THE HOSPITAL FOR FURTHER OBSERVATION AND TREATMENT OF RIGHT KNEE CELLULITIS, INTRACTABLE KNEE PAIN, HYPOTENSION, AND GENERALIZED WEAKNESS. ON ARRIVAL TO THE HOSPITAL, LABS WERE OBTAINED. ABNORMAL LAB VALUES INCLUDED THE FOLLOWING: WBC 10.3, RBC 3.63, HGB 10.5, HCT 31.9, BUN 21, GLUCOSE 148, ALT 10, ALBUMIN 3.1, GLOBULIN 4.8. CARDIAC ENZYMES WERE WITHIN NORMLA LIMITS. COVID-19 NEGATIVE. A CHEST XRAY WAS OBTAINED AND REVEALED: NO SIGNIFICANT ABNORMALITY. RIGHT KNEE XRAY OBTAINED AND REVEALED: The patient is status post total knee arthroplasty. Position and alignment appears anatomic. There is no definite evidence for fracture or loosening. No definite joint effusion identified. No periarticular soft tissue abnormality is identified. Surgical clips are identified along the medial aspect at the joint line. EKG REVEALED: SINUS RHYTHM WITH HR 70. HE WAS STARTED ON NORMAL SALINE AT 125 ML/HR, ZOSYN 3.375G IV TID, TORADOL 15MG IV Q6H FAINA, HUMULIN R SLIDING SCALE, OTBS ACHS, TEMOVATE CREAM TO LOWER EXTREMITIES BID, AND WE WILL RESUME HIS HOME MEDICATIONS EXCEPT FOR ANTIHYPERTENSIVES AT THIS TIME. OTHERWISE, WE PLAN TO FOLLOW UP WITH AM LABS AND CONTINUE TO MONITOR. TIME SPENT ON CLINICAL ASSESSMENT, REVIEWING LABS AND IMAGING, DECISION MAKING, AND DOCUMENTATION GREATER THAN 75 MINUTES. - Past Medical History Past Medical History: [place], Coronary Artery Disease, Hypertension, Dyslipidemia, Dementia, CHF Additional Medical History: Cataracts, Seasonal Allergies, Hearing Loss bilaterally, Diveritculosis, Constipation, Gastrointestinal Ulcer - Past Surgical History Surgical History: Abdominal Surgery, Appendectomy, CABG/Valve Surgery, Joint Replacement, Ortho Surgery, Other Additional Surgical History: Lumbar spine surgery due to herniated L4-L5 disk - Family History Family Medical History: [place], Coronary Artery Disease - Social History Does patient currently use any type of tobacco product: No Have you used tobacco products in the last 12 months: No Type of Tobacco Use: None Does any household member use tobacco: No Alcohol Use: None Drug Use: None - Medications Home Medications: iodine Allergy (Verified 05/03/20 10:39) Sulfa (Sulfonamide Antibiotics) [SULFA] Allergy (Verified 05/03/20 10:39) zolpidem [From Ambien] Allergy (Verified 05/03/20 10:39) - Review of Systems Constitutional: Weakness, Malaise, Other (DECREASED ORAL INTAKE ) Eyes: No Symptoms Reported ENT: No Symptoms Reported Respiratory: No Symptoms Reported Cardiovascular: No Symptoms Reported Gastrointestinal: No Symptoms Reported Genitourinary: No Symptoms Reported Musculoskeletal: See HPI, Other (RIGHT KNEE PAIN ) Skin: See HPI (RIGHT KNEE REDNESS ), Rash (PSORIASIS ON LEGS AND ARMS ) Neurological: Weakness - Physical Exam Vital Signs: Temperature 98.7 F Pulse Rate [Right Brachial] 67 Respiratory Rate 18 Blood Pressure [Right Arm] 155/69 Blood Pressure [Left Arm] 91/50 Blood Pressure [Right Arm] 144/64 Blood Pressure 134/70 O2 Sat by Pulse Oximetry 96 Oriented: Person, Place Eyes: Normal Ear: Normal Nose: Normal Throat: Normal Respiratory: Diminished Throughout Cardiovascular: Normal : Normal Auscultation: Bowel Sounds: Normal Palpation: Normal Tenderness: Normal Skin: Rash (PSORIASIS TO BILATERAL UPPER AND LOWER EXTREMITIES ), Red (RIGHT KNEE ), Tender Musculoskeletal: Right, Knee, Swelling, Tender Psychiatric: Normal Mood Description: Calm Affect: Normal Speech Pattern: Clear - Assessment/Plan (1) Cellulitis of knee, right Status: Acute Plan: ADMIT, NORMAL SALINE AT 125 ML/HR, ZOSYN 3.375G IV TID, TORADOL 15MG IV Q6H FAINA, HUMULIN R SLIDING SCALE, OTBS ACHS, TEMOVATE CREAM TO LOWER EXTREMITIES BID, AND WE WILL RESUME HIS HOME MEDICATIONS EXCEPT FOR ANTIHYPERTENSIVES AT THIS TIME. (2) Hypotension Qualifiers: Hypotension type: unspecified hypotension type Qualified Code(s): I95.9 - Hypotension, unspecified Status: Acute (3) Frequent falls Status: Acute (4) Generalized weakness Status: Acute - Allergies Allergies/Adverse Reactions: Allergies Allergy/AdvReac Type Severity Reaction Status Date / Time iodine Allergy Verified 05/03/20 10:39 Sulfa (Sulfonamide Allergy Verified 05/03/20 10:39 Antibiotics) [SULFA] zolpidem [From Ambien] Allergy Verified 05/03/20 10:39
[2020-09-08] MEDS ORDERED: VITAMIN B12 FOLIC ACID SL SCH (10:45)
[2020-09-08] MEDS ORDERED: ZOLOFT ONE (11:12)
[2020-09-08] MEDS: ZOSYN VIAL 3.375 GRAMS 3.375 G in NS 100 ML IV + SPIKE MINIBAG* 100 ML IV SCH ×3 (11:28→21:11)
[2020-09-08] MEDS: TEMOVATE CREAM EXT SCH ×2 (11:30→20:47)
[2020-09-08] MEDS: TORADOL 15 MG VIAL IVP SCH ×3 (11:31→21:10)
[2020-09-08] MEDS: SYNTHROID 75 mcg TAB PO SCH (11:34)
[2020-09-08] MEDS: ZOLOFT PO SCH (11:35)
[2020-09-08] MEDS: ECOTRIN TAB 325 MG PO SCH (11:35)
[2020-09-08] MEDS: MEGACE PO SCH ×2 (11:35→20:46)
[2020-09-08] MEDS: PROTONIX TAB 40 MG PO SCH (11:35)
[2020-09-08] MEDS: COLACE CAP 100 MG PO SCH (11:35)
[2020-09-08] MEDS: PLAVIX PO SCH (11:36)
[2020-09-08] MEDS: PLAQUENIL PO SCH ×2 (11:36→20:47)
[2020-09-08] MEDS: NAMENDA TAB 10 MG PO SCH (11:37)
[2020-09-08] MEDS: SINEMET CR 50/200 MG PO SCH ×2 (16:40→21:10)
[2020-09-08] MEDS: SNACK - Diabetic Appropriate PO SCH (20:45)
[2020-09-08] MEDS: ARICEPT TAB 10 MG PO SCH (20:45)
[2020-09-08] MEDS: LIPITOR TAB 40 MG PO SCH (20:46)
[2020-09-09] MEDS: NS 1000 ML 1,000 ML IV SCH ×5 (01:24→21:46)
[2020-09-09] MEDS: TORADOL 15 MG VIAL IVP SCH ×4 (03:29→20:59)
[2020-09-09 04:31] LABS: BILIRUBIN,URINE NEGATIVE (NEGATIVE); BLOOD/HEMOGLOBIN,URINE 2+ (NEGATIVE); GLUCOSE, URINE NEGATIVE (NEGATIVE); KETONES,URINE NEGATIVE (NEGATIVE); LEUKOCYTE ESTERASE ,URINE 2+ (NEGATIVE); NITRITES,URINE NEGATIVE (NEGATIVE); PROTEIN,URINE NEGATIVE (NEGATIVE); UROBILINOGEN,URINE NORMAL (NORMAL)
[2020-09-09 04:37] LABS: APPEARANCE,URINE CLEAR (CLEAR); COLOR,URINE STRAW (YELLOW); RBC,URINE 0-2 /HPF (0-3)
[2020-09-09 04:38] LABS: BACTERIA,URINE TRACE /HPF (NEGATIVE); SQUAMOUS EPITHELIAL CELL,UR RARE /HPF (NEGATIVE)
[2020-09-09 05:22] LABS: BASOPHILS % (AUTO) 0.5 % (0.2-1.0); EOSINOPHILS # (AUTO) 0.3 x10^3/uL (0.0-0.2); EOSINOPHILS % (AUTO) 5.9 % (0.9-2.9); HEMATOCRIT 28.1 % (42.0-54.0); HEMOGLOBIN 9.4 g/dL (13.5-18.0); LYMPHOCYTES % (AUTO) 17.7 % (21.0-51.0); MEAN CORPUSCULAR HEMOGLOBIN 28.9 pg (27.0-34.0); MEAN CORPUSCULAR HGB CONC 33.3 g/dL (33.0-35.0); MEAN CORPUSCULAR VOLUME 86.8 fL (80.0-100.0); MEAN PLATELET VOLUME 8.8 fL (7.4-11.0); MONOCYTES # (AUTO) 0.3 x10^3/uL (0.3-0.8); MONOCYTES % (AUTO) 5.5 % (0.0-13.0); NEUTROPHILS # (AUTO) 3.9 x10^3/uL (2.2-4.8); NEUTROPHILS % (AUTO) 70.4 % (42.0-75.0); PLATELET COUNT 150 X10^3/uL (150.0-450.0); RED BLOOD COUNT 3.24 X10^6/uL (4.7-6.0); RED CELL DISTRIBUTION WIDTH 16.5 % (11.6-16.5); WHITE BLOOD COUNT 5.6 X10^3/uL (3.6-10.0)
[2020-09-09] MEDS: SINEMET CR 50/200 MG PO SCH ×3 (05:56→20:56)
[2020-09-09] MEDS: ZOSYN VIAL 3.375 GRAMS 3.375 G in NS 100 ML IV + SPIKE MINIBAG* 100 ML IV SCH ×3 (05:56→20:57)
[2020-09-09 06:03] LABS: ALANINE AMINOTRANSFERASE 9 Units/L (12-78); ALBUMIN 2.7 g/dL (3.4-5.0); ALKALINE PHOSPHATASE 72 Units/L (46-116); ASPARTATE AMINO TRANSFERASE 32 Units/L (15-37); BLOOD UREA NITROGEN 9 mg/dL (7-18); CARBON DIOXIDE 22.1 mmol/L (21-32); CHLORIDE 107 mmol/L (98-107); COR NA(FOR HYPERGLY) 143 mmol/L (136-145); CREATININE 0.85 mg/dL (0.70-1.30); SODIUM 142 mmol/L (136-145); TOTAL PROTEIN 6.7 g/dL (6.4-8.2); eGFR NON BLACK RACES > 60 (>60)
[2020-09-09] MEDS ORDERED: ZOLOFT ONE (08:38)
--- NOTE | 2020-09-09 09:02 | PCM.PROG ---
Progress Note - Progress Note for Day of Date of Exam: 09/08/20 - Subjective Subjective: WAS ADMITTED FOR TREATMENT OF RIGHT KNEE CELLULITIS, INTRACTABLE KNEE PAIN, HYPOTENSION, AND GENERALIZED WEAKNESS. TODAY, HE IS ALERT AND ORIENTED, LYING IN BED ON MORNING ROUNDS. HE CONTINUES WITH COMPLAINTS OF PAIN TO THE RIGHT KNEE. STAFF REPORTS THAT HE REQUIRES MODERATE ASSISTANCE FOR AMBULATION AND IS UNABLE TO PUT WEIGHT ON THE RIGHT KNEE WITHOUT SEVERE PAIN. ON EXAMINATION, HEART IS REGULAR IN RATE AND RHYTHM. BILATERAL LUNGS ARE NOTED TO HAVE DIMINISHED LUNG SOUNDS THROUGHOUT. ABDOMEN IS ROUND, SOFT, AND NON-TENDER WITH NORMAL BOWEL SOUNDS NOTED IN ALL QUADRANTS. RIGHT KNEE CONTINUES WITH ERYTHEMA AND EDEMA. HIS VITALS THIS MORNING ARE: 98.7-67-18-96%-155/69. LABS WE RE OBTAINED. ABNORMAL LAB VALUES INCLUDE THE FOLLOWING: RBC 3.11, HGB 8.9, HCT 27.1, CHLORIDE 109, CARBON DIOXIDE 20.9, GLUCOSE 104, CALCIUM 8.2, ALBUMIN 2.6. HE IS CURRENTLY RECEIVING NORMAL SALINE AT 125 ML/HR, ZOSYN 3.375G IV TID, TORADOL 15MG IV Q6H FAINA, HUMULIN R SLIDING SCALE, OTBS ACHS, TEMOVATE CREAM TO LOWER EXTREMITIES BID, AND HIS HOME MEDICATIONS WERE RESUMED WITH THE EXCEPTION OF HIS ANTIHYPERTENSIVES. WE WILL CONTINUE WITH CURRENT PLAN OF CARE TODAY. PHYSICAL/OCCUPATIONAL THERAPIES WILL EVALUATE PATIENT TODAY. OTHERWISE, WE PLAN TO FOLLOW UP WITH AM LABS AND CONTINUE TO MONITOR. TIME SPENT ON CLINICAL ASSESSMENT, REVIEWING LABS AND IMAGING, DECISION MAKING, AND DOCUMENTATION GR EATER THAN 45 MINUTES. - Past Medical Family Social History Past Med/Fam/Surg Hx: No changes since H&P Allergies: Allergies iodine Allergy (Verified 05/03/20 10:39) Sulfa (Sulfonamide Antibiotics) [SULFA] Allergy (Verified 05/03/20 10:39) zolpidem [From Ambien] Allergy (Verified 05/03/20 10:39) - Review of Systems ROS: No change since H&P - Vital Signs and I&O's Vital Signs: Temperature 98.7 F Pulse Rate [Right Brachial] 64 Respiratory Rate 12 Blood Pressure [Right Arm] 160/70 Blood Pressure [Left Arm] 91/50 Blood Pressure [Right Arm] 144/64 Blood Pressure 134/70 O2 Sat by Pulse Oximetry 99 Intake and Output: Intake & Output 09/06/20 09/07/20 09/08/20 09/09/20 11:59 11:59 11:59 11:59 Intake Total 1973 Output Total 200 / 200 Balance 1972 1796 / 1796 - Physical Exam Oriented: Person, Place Eyes: Normal Ear: Normal Nose: Normal Throat: Normal Respiratory: Generalized, Diminished Cardiovascular: Normal : Normal Auscultation: Bowel Sounds: Normal Palpation: Normal Tenderness: Normal Skin: Rash (PSORIASIS TO BILATERAL UPPER AND LOWER EXTREMITIES ), Red (RIGHT KNEE ), Tender Musculoskeletal: Right, Knee, Swelling, Tender Psychiatric: Normal Mood Description: Calm Affect: Normal Speech Pattern: Clear, Appropriate - Laboratory and Diagnostics Result Diagrams: 09/09/20 04:00 09/09/20 04:00 Labs: Laboratory WBC 5.6 X10^3/uL (3.6-10.0) 09/09/20 04:00 RBC 3.24 X10^6/uL (4.7-6.0) L 09/09/20 04:00 Hgb 9.4 g/dL (13.5-18.0) L 09/09/20 04:00 Hct 28.1 % (42.0-54.0) L 09/09/20 04:00 MCV 86.8 fL (80.0-100.0) 09/09/20 04:00 MCH 28.9 pg (27.0-34.0) 09/09/20 04:00 MCHC 33.3 g/dL (33.0-35.0) 09/09/20 04:00 RDW 16.5 % (11.6-16.5) 09/09/20 04:00 Plt Count 150 X10^3/uL (150.0-450.0) 09/09/20 04:00 MPV 8.8 fL (7.4-11.0) 09/09/20 04:00 Neut % (Auto) 70.4 % (42.0-75.0) 09/09/20 04:00 Lymph % (Auto) 17.7 % (21.0-51.0) L 09/09/20 04:00 [place] % (Auto) 5.5 % (0.0-13.0) 09/09/20 04:00 Eos % (Auto) 5.9 % (0.9-2.9) H 09/09/20 04:00 Baso % (Auto) 0.5 % (0.2-1.0) 09/09/20 04:00 Neut # (Auto) 3.9 x10^3/uL (2.2-4.8) 09/09/20 04:00 Lymph # (Auto) 1.0 X10^3/uL (1.3-2.9) L 09/09/20 04:00 [place] # (Auto) 0.3 x10^3/uL (0.3-0.8) 09/09/20 04:00 Eos # (Auto) 0.3 x10^3/uL (0.0-0.2) H 09/09/20 04:00 Baso # (Auto) 0.0 X10^3/uL (0.0-0.1) 09/09/20 04:00 Absolute Nucleated RBC 0.0 /100WBC 09/09/20 04:00 Sodium 142 mmol/L (136-145) 09/09/20 04:00 Corrected Sodium 143 mmol/L (136-145) 09/09/20 04:00 Potassium 3.1 mmol/L (3.5-5.1) L 09/09/20 04:00 Chloride 107 mmol/L (98-107) 09/09/20 04:00 Carbon Dioxide 22.1 mmol/L (21-32) 09/09/20 04:00 BUN 9 mg/dL (7-18) 09/09/20 04:00 Creatinine 0.85 mg/dL (0.70-1.30) 09/09/20 04:00 Est GFR (MDRD) Af Amer > 60 (>60) 09/09/20 04:00 Est GFR (MDRD) Non-Af > 60 (>60) 09/09/20 04:00 Glucose 127 mg/dL (65-99) H 09/09/20 04:00 POC Glucose (mg/dL) 129 mg/dL (65-99) H 09/09/20 05:21 Uric Acid 3.8 mg/dL (3.5-7.2) 09/08/20 01:24 Calcium 8.0 mg/dL (8.5-10.1) L 09/09/20 04:00 Corrected Calcium 9.0 mg/dL (8.5-10.1) 09/09/20 04:00 Total Bilirubin 0.30 mg/dL (0.2-1.0) 09/09/20 04:00 AST 32 Units/L (15-37) 09/09/20 04:00 ALT 9 Units/L (12-78) L 09/09/20 04:00 Alkaline Phosphatase 72 Units/L (46-116) 09/09/20 04:00 Creatine Kinase 70 Units/L (39-308) 09/08/20 01:24 CK-MB (CK-2) < 1.0 ng/mL (0-4.0) 09/08/20 01:24 CK/CKMB % Calc 1.4 % (<4) 09/08/20 01:24 Troponin I < 0.02 ng/mL (0-1.5) 09/08/20 01:24 C-Reactive Protein 88.20 mg/L (0-3.0) H 09/08/20 01:24 Total Protein 6.7 g/dL (6.4-8.2) 09/09/20 04:00 Albumin 2.7 g/dL (3.4-5.0) L 09/09/20 04:00 Globulin 4.0 g/dL (2.5-4.5) 09/09/20 04:00 Albumin/Globulin Ratio 0.7 Ratio (1.1-2.1) L 09/09/20 04:00 Specimen Type Clean catch urine 09/09/20 04:05 Urine Color Straw (YELLOW) 09/09/20 04:05 Urine Appearance Clear (CLEAR) 09/09/20 04:05 Urine pH 6.0 (5.0 - 8.0) 09/09/20 04:05 Ur Specific [place] 1.010 (1.000-1.030) 09/09/20 04:05 Urine Protein Negative (NEGATIVE) 09/09/20 04:05 Urine Glucose (UA) Negative (NEGATIVE) 09/09/20 04:05 Urine Ketones Negative (NEGATIVE) 09/09/20 04:05 Urine Occult Blood 2+ (NEGATIVE) 09/09/20 04:05 Urine Nitrite Negative (NEGATIVE) 09/09/20 04:05 Urine Bilirubin Negative (NEGATIVE) 09/09/20 04:05 Urine Urobilinogen Normal (NORMAL) 09/09/20 04:05 Ur Leukocyte Esterase 2+ (NEGATIVE) 09/09/20 04:05 Urine RBC 0-2 /HPF (0-3) 09/09/20 04:05 Urine WBC 20-30 /HPF (0-5) A 09/09/20 04:05 Ur Squamous Epith Cells Rare /HPF (NEGATIVE) 09/09/20 04:05 Urine Bacteria Trace /HPF (NEGATIVE) 09/09/20 04:05 Ur Culture Indicated? Yes/culture set up 09/09/20 04:05 SARS CoV-2 RNA Rapid KRISS Negative (NEGATIVE) 09/07/20 13:22 - Plan (1) Cellulitis of knee, right Status: Acute Plan: NORMAL SALINE AT 125 ML/HR, ZOSYN 3.375G IV TID, TORADOL 15MG IV Q6H FAINA, HUMULIN R SLIDING SCALE, OTBS ACHS, TEMOVATE CREAM TO LOWER EXTREMITIES BID, CONTINUE HOME MEDS (2) Hypotension Status: Acute Qualifiers: Hypotension type: unspecified hypotension type Qualified Code(s): I95.9 - Hypotension, unspecified (3) Frequent falls Status: Acute (4) Generalized weakness Status: Acute
[2020-09-09] MEDS: COLACE CAP 100 MG PO SCH (09:26)
[2020-09-09] MEDS: FOLIC ACID TAB 1 MG PO SCH (09:27)
[2020-09-09] MEDS: PLAQUENIL PO SCH ×2 (09:27→20:56)
[2020-09-09] MEDS: PROTONIX TAB 40 MG PO SCH (09:27)
[2020-09-09] MEDS: MEGACE PO SCH ×2 (09:27→20:56)
[2020-09-09] MEDS: SYNTHROID 75 mcg TAB PO SCH (09:27)
[2020-09-09] MEDS: ZOLOFT PO SCH (09:27)
[2020-09-09] MEDS: ECOTRIN TAB 325 MG PO SCH (09:27)
[2020-09-09] MEDS: PLAVIX PO SCH (09:27)
[2020-09-09] MEDS: NAMENDA TAB 10 MG PO SCH (09:28)
[2020-09-09] MEDS: TEMOVATE CREAM EXT SCH ×3 (09:28→22:17)
--- NOTE | 2020-09-09 14:07 | PCM.PROG ---
Progress Note - Progress Note for Day of Date of Exam: 09/09/20 - Subjective Subjective: WAS ADMITTED FOR TREATMENT OF RIGHT KNEE CELLULITIS, INTRACTABLE KNEE PAIN, HYPOTENSION, AND GENERALIZED WEAKNESS. TODAY, HE IS ALERT AND ORIENTED, LYING IN BED ON MORNING ROUNDS. HE CONTINUES WITH COMPLAINTS OF PAIN TO THE RIGHT KNEE. STAFF REPORTS THAT HE REQUIRES MODERATE ASSISTANCE FOR AMBULATION AND IS UNABLE TO PUT WEIGHT ON THE RIGHT KNEE WITHOUT SEVERE PAIN. ON EXAMINATION, HEART IS REGULAR IN RATE AND RHYTHM. BILATERAL LUNGS ARE NOTED TO HAVE DIMINISHED LUNG SOUNDS THROUGHOUT. ABDOMEN IS ROUND, SOFT, AND NON-TENDER WITH NORMAL BOWEL SOUNDS NOTED IN ALL QUADRANTS. RIGHT KNEE CONTINUES WITH ERYTHEMA AND EDEMA. HIS VITALS THIS MORNING ARE: 98.7-64-12-99%-160/70. LABS WE RE OBTAINED. ABNORMAL LAB VALUES INCLUDE THE FOLLOWING: RBC 3.24, HGB 9.4, HCT 28.1, POTASSIUM 3.1, GLUCOSE 127, CALCIUM 8.0, ALT 9, ALBUMIN 2.7. HE IS CURRENTLY RECEIVING NORMAL SALINE AT 125 ML/HR, ZOSYN 3.375G IV TID, TORADOL 15MG IV Q6H FAINA, HUMULIN R SLIDING SCALE, OTBS ACHS, TEMOVATE CREAM TO LOWER EXTREMITIES BID, AND HIS HOME MEDICATIONS WERE RESUMED WITH THE EXCEPTION OF HIS ANTIHYPERTENSIVES. WE WILL CONTINUE WITH CURRENT PLAN OF CARE TODAY. PHYSICAL/OCCUPATIONAL THERAPIES WILL EVALUATE PATIENT TODAY. FAMILY IS REQUESTING THAT HE HAVE PHYSICAL THERAPY AND REHABILITATION AT [facility] UNTIL HE IS ABLE TO AMBULATE ON HIS OWN. OTHERWISE, WE PLAN TO FOLLOW UP WITH AM LABS AND CONTINUE TO MONITOR. TIME SPENT ON CLINICAL ASSESSMENT, REVIEWING LABS AND IMAGING, DECISION MAKING, AND DOCUMENTATION GREATER THAN 45 MINUTES. - Past Medical Family Social History Past Med/Fam/Surg Hx: No changes since H&P Allergies: Allergies iodine Allergy (Verified 05/03/20 10:39) Sulfa (Sulfonamide Antibiotics) [SULFA] Allergy (Verified 05/03/20 10:39) zolpidem [From Ambien] Allergy (Verified 05/03/20 10:39) - Review of Systems ROS: No change since H&P - Vital Signs and I&O's Vital Signs: Temperature 98.9 F Pulse Rate [Right Brachial] 69 Respiratory Rate 18 Blood Pressure [Right Arm] 156/73 Blood Pressure [Left Arm] 91/50 Blood Pressure [Right Arm] 144/64 Blood Pressure 134/70 O2 Sat by Pulse Oximetry 99 Intake and Output: Intake & Output 09/07/20 09/08/20 09/09/20 09/10/20 11:59 11:59 11:59 11:59 Intake Total 1973 Output Total 200 / 200 Balance 1972 1796 / 1796 - Physical Exam Oriented: Person, Place Eyes: Normal Ear: Normal Nose: Normal Throat: Normal Respiratory: Generalized, Diminished Cardiovascular: Normal : Normal Auscultation: Bowel Sounds: Normal Tenderness: Normal Skin: Rash (PSORIASIS TO BILATERAL UPPER AND LOWER EXTREMITIES ), Red (RIGHT KNEE ), Tender Musculoskeletal: Right, Knee, Swelling, Tender Psychiatric: Normal Mood Description: Calm Affect: Normal Speech Pattern: Clear, Appropriate - Laboratory and Diagnostics Result Diagrams: 09/09/20 04:00 09/09/20 04:00 Labs: Laboratory WBC 5.6 X10^3/uL (3.6-10.0) 09/09/20 04:00 RBC 3.24 X10^6/uL (4.7-6.0) L 09/09/20 04:00 Hgb 9.4 g/dL (13.5-18.0) L 09/09/20 04:00 Hct 28.1 % (42.0-54.0) L 09/09/20 04:00 MCV 86.8 fL (80.0-100.0) 09/09/20 04:00 MCH 28.9 pg (27.0-34.0) 09/09/20 04:00 MCHC 33.3 g/dL (33.0-35.0) 09/09/20 04:00 RDW 16.5 % (11.6-16.5) 09/09/20 04:00 Plt Count 150 X10^3/uL (150.0-450.0) 09/09/20 04:00 MPV 8.8 fL (7.4-11.0) 09/09/20 04:00 Neut % (Auto) 70.4 % (42.0-75.0) 09/09/20 04:00 Lymph % (Auto) 17.7 % (21.0-51.0) L 09/09/20 04:00 [place] % (Auto) 5.5 % (0.0-13.0) 09/09/20 04:00 Eos % (Auto) 5.9 % (0.9-2.9) H 09/09/20 04:00 Baso % (Auto) 0.5 % (0.2-1.0) 09/09/20 04:00 Neut # (Auto) 3.9 x10^3/uL (2.2-4.8) 09/09/20 04:00 Lymph # (Auto) 1.0 X10^3/uL (1.3-2.9) L 09/09/20 04:00 [place] # (Auto) 0.3 x10^3/uL (0.3-0.8) 09/09/20 04:00 Eos # (Auto) 0.3 x10^3/uL (0.0-0.2) H 09/09/20 04:00 Baso # (Auto) 0.0 X10^3/uL (0.0-0.1) 09/09/20 04:00 Absolute Nucleated RBC 0.0 /100WBC 09/09/20 04:00 Sodium 142 mmol/L (136-145) 09/09/20 04:00 Corrected Sodium 143 mmol/L (136-145) 09/09/20 04:00 Potassium 3.1 mmol/L (3.5-5.1) L 09/09/20 04:00 Chloride 107 mmol/L (98-107) 09/09/20 04:00 Carbon Dioxide 22.1 mmol/L (21-32) 09/09/20 04:00 BUN 9 mg/dL (7-18) 09/09/20 04:00 Creatinine 0.85 mg/dL (0.70-1.30) 09/09/20 04:00 Est GFR (MDRD) Af Amer > 60 (>60) 09/09/20 04:00 Est GFR (MDRD) Non-Af > 60 (>60) 09/09/20 04:00 Glucose 127 mg/dL (65-99) H 09/09/20 04:00 POC Glucose (mg/dL) 112 mg/dL (65-99) H 09/09/20 11:34 Uric Acid 3.8 mg/dL (3.5-7.2) 09/08/20 01:24 Calcium 8.0 mg/dL (8.5-10.1) L 09/09/20 04:00 Corrected Calcium 9.0 mg/dL (8.5-10.1) 09/09/20 04:00 Total Bilirubin 0.30 mg/dL (0.2-1.0) 09/09/20 04:00 AST 32 Units/L (15-37) 09/09/20 04:00 ALT 9 Units/L (12-78) L 09/09/20 04:00 Alkaline Phosphatase 72 Units/L (46-116) 09/09/20 04:00 Creatine Kinase 70 Units/L (39-308) 09/08/20 01:24 CK-MB (CK-2) < 1.0 ng/mL (0-4.0) 09/08/20 01:24 CK/CKMB % Calc 1.4 % (<4) 09/08/20 01:24 Troponin I < 0.02 ng/mL (0-1.5) 09/08/20 01:24 C-Reactive Protein 88.20 mg/L (0-3.0) H 09/08/20 01:24 Total Protein 6.7 g/dL (6.4-8.2) 09/09/20 04:00 Albumin 2.7 g/dL (3.4-5.0) L 09/09/20 04:00 Globulin 4.0 g/dL (2.5-4.5) 09/09/20 04:00 Albumin/Globulin Ratio 0.7 Ratio (1.1-2.1) L 09/09/20 04:00 Specimen Type Clean catch urine 09/09/20 04:05 Urine Color Straw (YELLOW) 09/09/20 04:05 Urine Appearance Clear (CLEAR) 09/09/20 04:05 Urine pH 6.0 (5.0 - 8.0) 09/09/20 04:05 Ur Specific [place] 1.010 (1.000-1.030) 09/09/20 04:05 Urine Protein Negative (NEGATIVE) 09/09/20 04:05 Urine Glucose (UA) Negative (NEGATIVE) 09/09/20 04:05 Urine Ketones Negative (NEGATIVE) 09/09/20 04:05 Urine Occult Blood 2+ (NEGATIVE) 09/09/20 04:05 Urine Nitrite Negative (NEGATIVE) 09/09/20 04:05 Urine Bilirubin Negative (NEGATIVE) 09/09/20 04:05 Urine Urobilinogen Normal (NORMAL) 09/09/20 04:05 Ur Leukocyte Esterase 2+ (NEGATIVE) 09/09/20 04:05 Urine RBC 0-2 /HPF (0-3) 09/09/20 04:05 Urine WBC 20-30 /HPF (0-5) A 09/09/20 04:05 Ur Squamous Epith Cells Rare /HPF (NEGATIVE) 09/09/20 04:05 Urine Bacteria Trace /HPF (NEGATIVE) 09/09/20 04:05 Ur Culture Indicated? Yes/culture set up 09/09/20 04:05 SARS CoV-2 RNA Rapid KRISS Negative (NEGATIVE) 09/07/20 13:22 - Plan (1) Cellulitis of knee, right Status: Acute Plan: NORMAL SALINE AT 125 ML/HR, ZOSYN 3.375G IV TID, TORADOL 15MG IV Q6H FAINA, HUMULIN R SLIDING SCALE, OTBS ACHS, TEMOVATE CREAM TO LOWER EXTREMITIES BID, CONTINUE HOME MEDS (2) Hypotension Status: Acute Qualifiers: Hypotension type: unspecified hypotension type Qualified Code(s): I95.9 - Hypotension, unspecified (3) Frequent falls Status: Acute (4) Generalized weakness Status: Acute
[2020-09-09] MEDS: LIPITOR TAB 40 MG PO SCH (20:56)
[2020-09-09] MEDS: ARICEPT TAB 10 MG PO SCH (20:56)
[2020-09-09] MEDS: SNACK - Diabetic Appropriate PO SCH (21:44)
[2020-09-10] MEDS ORDERED: POTASSIUM CHL 60 MEQ/NS 0.45% 500 ML IV PRN (01:43)
[2020-09-10] MEDS ORDERED: POTASSIUM CHLORIDE LIQ 20 MEQ UDC PO PRN (01:43)
[2020-09-10] MEDS ORDERED: K-RIDER 10 MEQ/NS 100 ML 10 MEQ/100 ML BAG IV PRN (01:43)
[2020-09-10] MEDS ORDERED: MICRO K EXTEN CAP 10 MEQ PO PRN (01:43)
[2020-09-10] MEDS ORDERED: KLOR-CON PO PRN (01:43)
[2020-09-10] MEDS ORDERED: POTASSIUM CHL 40 MEQ/NS 0.45% 500 ML IV PRN (01:43)
[2020-09-10] MEDS: NS 1000 ML 1,000 ML IV SCH ×4 (01:57→23:10)
[2020-09-10] MEDS: K-DUR TAB 20 MEQ PO PRN ×3 (03:42→21:40)
[2020-09-10] MEDS: TORADOL 15 MG VIAL IVP SCH ×4 (04:05→21:24)
[2020-09-10 05:05] LABS: BASOPHILS % (AUTO) 0.5 % (0.2-1.0); EOSINOPHILS # (AUTO) 0.3 x10^3/uL (0.0-0.2); EOSINOPHILS % (AUTO) 4.9 % (0.9-2.9); HEMOGLOBIN 9.5 g/dL (13.5-18.0); LYMPHOCYTES # (AUTO) 1.4 X10^3/uL (1.3-2.9); MEAN CORPUSCULAR HEMOGLOBIN 28.4 pg (27.0-34.0); MEAN CORPUSCULAR HGB CONC 32.6 g/dL (33.0-35.0); MEAN CORPUSCULAR VOLUME 87.1 fL (80.0-100.0); MEAN PLATELET VOLUME 8.5 fL (7.4-11.0); MONOCYTES # (AUTO) 0.3 x10^3/uL (0.3-0.8); MONOCYTES % (AUTO) 4.8 % (0.0-13.0); NEUTROPHILS # (AUTO) 4.2 x10^3/uL (2.2-4.8); NEUTROPHILS % (AUTO) 67.8 % (42.0-75.0); PLATELET COUNT 175 X10^3/uL (150.0-450.0); RED BLOOD COUNT 3.33 X10^6/uL (4.7-6.0); RED CELL DISTRIBUTION WIDTH 16.6 % (11.6-16.5); WHITE BLOOD COUNT 6.2 X10^3/uL (3.6-10.0)
[2020-09-10] MEDS: ZOSYN VIAL 3.375 GRAMS 3.375 G in NS 100 ML IV + SPIKE MINIBAG* 100 ML IV SCH ×3 (05:17→21:21)
[2020-09-10] MEDS: SINEMET CR 50/200 MG PO SCH ×3 (05:17→21:25)
[2020-09-10 05:19] LABS: ALANINE AMINOTRANSFERASE 12 Units/L (12-78); ALBUMIN 2.8 g/dL (3.4-5.0); ALKALINE PHOSPHATASE 77 Units/L (46-116); ASPARTATE AMINO TRANSFERASE 37 Units/L (15-37); BLOOD UREA NITROGEN 4 mg/dL (7-18); CALCIUM 8.2 mg/dL (8.5-10.1); CHLORIDE 109 mmol/L (98-107); COR CA(FOR HYPOALB) 9.2 mg/dL (8.5-10.1); COR NA(FOR HYPERGLY) 147 mmol/L (136-145); CREATININE 0.84 mg/dL (0.70-1.30); SODIUM 146 mmol/L (136-145); TOTAL PROTEIN 7.1 g/dL (6.4-8.2); eGFR NON BLACK RACES > 60 (>60)
[2020-09-10] MEDS: MAGNESIUM SULFATE 1 GRAM/100 mL PREMIX 1 GM/100 ML BAG IV PRN ×4 (05:31→14:08)
[2020-09-10] MEDS ORDERED: ZOLOFT ONE (09:17)
[2020-09-10] MEDS: COLACE CAP 100 MG PO SCH (09:22)
[2020-09-10] MEDS: ECOTRIN TAB 325 MG PO SCH (09:23)
[2020-09-10] MEDS: FOLIC ACID TAB 1 MG PO SCH (09:23)
[2020-09-10] MEDS: ZOLOFT PO SCH (09:23)
[2020-09-10] MEDS: PROTONIX TAB 40 MG PO SCH (09:24)
[2020-09-10] MEDS: NAMENDA TAB 10 MG PO SCH (09:24)
[2020-09-10] MEDS: TOPROL XL PO SCH (09:24)
[2020-09-10] MEDS: MEGACE PO SCH ×2 (09:24→21:27)
[2020-09-10] MEDS: SYNTHROID 75 mcg TAB PO SCH (09:25)
[2020-09-10] MEDS: PLAVIX PO SCH (09:25)
[2020-09-10] MEDS: PLAQUENIL PO SCH ×2 (09:28→21:25)
[2020-09-10] MEDS: TEMOVATE CREAM EXT SCH ×2 (16:48→21:55)
[2020-09-10] MEDS ORDERED: NORVASC TAB 5 MG PO SCH (21:00)
[2020-09-10] MEDS: LIPITOR TAB 40 MG PO SCH (21:26)
[2020-09-10] MEDS: ARICEPT TAB 10 MG PO SCH (21:27)
[2020-09-10] MEDS: SNACK - Diabetic Appropriate PO SCH (21:55)
[2020-09-11 04:30] LABS: BASOPHILS % (AUTO) 0.8 % (0.2-1.0); EOSINOPHILS # (AUTO) 0.5 x10^3/uL (0.0-0.2); EOSINOPHILS % (AUTO) 8.2 % (0.9-2.9); HEMATOCRIT 29.9 % (42.0-54.0); HEMOGLOBIN 9.7 g/dL (13.5-18.0); LYMPHOCYTES # (AUTO) 1.3 X10^3/uL (1.3-2.9); LYMPHOCYTES % (AUTO) 22.1 % (21.0-51.0); MEAN CORPUSCULAR HEMOGLOBIN 28.4 pg (27.0-34.0); MEAN CORPUSCULAR HGB CONC 32.3 g/dL (33.0-35.0); MEAN CORPUSCULAR VOLUME 87.9 fL (80.0-100.0); MEAN PLATELET VOLUME 8.2 fL (7.4-11.0); MONOCYTES # (AUTO) 0.3 x10^3/uL (0.3-0.8); MONOCYTES % (AUTO) 5.3 % (0.0-13.0); NEUTROPHILS # (AUTO) 3.7 x10^3/uL (2.2-4.8); NEUTROPHILS % (AUTO) 63.6 % (42.0-75.0); PLATELET COUNT 180 X10^3/uL (150.0-450.0); RED CELL DISTRIBUTION WIDTH 16.5 % (11.6-16.5); WHITE BLOOD COUNT 5.8 X10^3/uL (3.6-10.0)
[2020-09-11] MEDS: TORADOL 15 MG VIAL IVP SCH ×2 (04:39→11:03)
[2020-09-11 04:40] LABS: ALANINE AMINOTRANSFERASE 10 Units/L (12-78); ALBUMIN 2.8 g/dL (3.4-5.0); ALKALINE PHOSPHATASE 75 Units/L (46-116); ASPARTATE AMINO TRANSFERASE 32 Units/L (15-37); BLOOD UREA NITROGEN 5 mg/dL (7-18); CARBON DIOXIDE 22.8 mmol/L (21-32); CHLORIDE 111 mmol/L (98-107); COR NA(FOR HYPERGLY) 147 mmol/L (136-145); CREATININE 0.98 mg/dL (0.70-1.30); SODIUM 146 mmol/L (136-145); eGFR NON BLACK RACES > 60 (>60)
[2020-09-11] MEDS: SINEMET CR 50/200 MG PO SCH (05:00)
[2020-09-11] MEDS: ZOSYN VIAL 3.375 GRAMS 3.375 G in NS 100 ML IV + SPIKE MINIBAG* 100 ML IV SCH (05:00)
[2020-09-11] MEDS: NS 1000 ML 1,000 ML IV SCH (06:10)
[2020-09-11] MEDS ORDERED: ZOLOFT ONE (07:43)
[2020-09-11 07:53] VITALS: BP 176/77
[2020-09-11] MEDS ORDERED: SOLU-Medrol 40 MG VIAL IVP ONE (09:25)
[2020-09-11] MEDS ORDERED: SINGULAIR TAB 10 MG PO ONE (09:30)
[2020-09-11] MEDS: TEMOVATE CREAM EXT SCH (09:33)
[2020-09-11] MEDS: COLACE CAP 100 MG PO SCH (09:33)
[2020-09-11] MEDS: PROTONIX TAB 40 MG PO SCH (09:33)
[2020-09-11] MEDS: ZOLOFT PO SCH (09:34)
[2020-09-11] MEDS: PLAVIX PO SCH (09:34)
[2020-09-11] MEDS: MEGACE PO SCH (09:34)
[2020-09-11] MEDS: SYNTHROID 75 mcg TAB PO SCH (09:35)
[2020-09-11] MEDS: PLAQUENIL PO SCH (09:35)
[2020-09-11] MEDS: TOPROL XL PO SCH (09:35)
[2020-09-11] MEDS: ECOTRIN TAB 325 MG PO SCH (09:35)
[2020-09-11] MEDS: FOLIC ACID TAB 1 MG PO SCH (09:36)
[2020-09-11] MEDS: NAMENDA TAB 10 MG PO SCH (09:36)
[2020-09-11] MEDS ORDERED: AQUAPHOR TOP SCH (09:45)
--- NOTE | 2020-09-11 12:51 | PCM.PROG ---
Progress Note - Progress Note for Day of Date of Exam: 09/10/20 - Subjective Subjective: WAS ADMITTED FOR TREATMENT OF RIGHT KNEE CELLULITIS, INTRACTABLE KNEE PAIN, UTI, HYPOTENSION, AND GENERALIZED WEAKNESS. TODAY, HE IS ALERT AND ORIENTED, LYING IN BED ON MORNING ROUNDS. HE CONTINUES WITH COMPLAINTS OF PAIN TO THE RIGHT KNEE. HE ADMITS TO SLIGHT IMROVEMENT IN SYMPTOMS TODAY. HE ALSO REPORTS DISCOMFORT TO THE ARMS AND BACK FROM SKIN IRRITATION. PATIENT DOES HAVE A HISTORY OF PSORIASIS. ON EXAMINATION, HEART IS REGULAR IN RATE AND RHYTHM. BILATERAL LUNGS ARE NOTED TO HAVE DIMINISHED LUNG SOUNDS THROUGHOUT. ABDOMEN IS ROUND, SOFT, AND NON-TENDER WITH NORMAL BOWEL SOUNDS NOTED IN ALL QUADRANTS. RIGHT KNEE CONTINUES WITH ERYTHEMA AND EDEMA. THERE IS REDNESS AND SCABBED PATCHES ON ARMS AND BACK. HIS VITALS THIS MORNING ARE: 98.2-68-20-96%-164/77. LABS WERE OBTAINED. ABNORMAL LAB VALUES INCLUDE THE FOLLOWING: RBC 3.33, HGB 9.5, HCT 29.0, SODIUM 146, POTASSIUM 3.4, CHLORIDE 109, BUN 4, GLUCOSE 134, CALCIUM 8.2, ALBUMIN 2.8. A URINALYSIS WAS OBTAINED AND REVEALED: WBC 20-30, RBC 0-2, LEUKOCYTES 2+, BACTERIA TRACE, OCCULT BLOOD 2+. HE IS CURRENTLY RECEIVING NORMAL SALINE AT 125 ML/HR, ZOSYN 3.375G IV TID, TORADOL 15MG IV Q6H FAINA, HUMULIN R SLIDING SCALE, OTBS ACHS, TEMOVATE CREAM BID, AQUAPHOR CREAM BID, AND HIS HOME MEDICATIONS WERE RESUMED WITH THE EXCEPTION OF HIS ANTIHYPERTENSIVES. WE WILL CONTINUE WITH CURRENT PLAN OF CARE TODAY. PHYSICAL/OCCUPATIONAL THERAPIES WILL CONTINUE TO WORK WITH PATIENT. FAMILY IS REQUESTING THAT HE HAVE PHYSICAL THERAPY AND REHABILITATION AT [facility] UNTIL HE IS ABLE TO AMBULATE ON HIS OWN. OTHERWISE, WE PLAN TO FOLLOW UP WITH AM LABS AND CONTINUE TO MONITOR. TIME SPENT ON CLINICAL ASSESSMENT, REVIEWING LABS AND IMAGING, DECISION MAKING, AND DOCUMENTATION GREATER THAN 45 MINUTES. - Past Medical Family Social History Past Med/Fam/Surg Hx: No changes since H&P Allergies: Allergies iodine Allergy (Verified 05/03/20 10:39) Sulfa (Sulfonamide Antibiotics) [SULFA] Allergy (Verified 05/03/20 10:39) zolpidem [From Ambien] Allergy (Verified 05/03/20 10:39) - Review of Systems ROS: No change since H&P - Vital Signs and I&O's Vital Signs: Temperature 99.3 F Pulse Rate [Right Brachial] 65 Respiratory Rate 22 Blood Pressure [Right Arm] 176/77 Blood Pressure [Left Arm] 91/50 Blood Pressure [Right Arm] 144/64 Blood Pressure 134/70 O2 Sat by Pulse Oximetry 100 Intake and Output: Intake & Output 09/09/20 09/10/20 09/11/20 09/12/20 11:59 11:59 11:59 11:59 Intake Total 1995 4058 / 4058 4114 / 4114 Output Total 200 / 200 Balance 1796 / 1796 4058 / 4058 4114 / 4114 - Physical Exam Oriented: Person, Place Eyes: Normal Ear: Normal Nose: Normal Throat: Normal Respiratory: Generalized, Diminished Cardiovascular: Normal : Normal Auscultation: Bowel Sounds: Normal Tenderness: Normal Skin: Rash (PSORIASIS TO BILATERAL UPPER AND LOWER EXTREMITIES, BACK), Red (RIGHT KNEE ), Tender Musculoskeletal: Right, Knee, Swelling, Tender Psychiatric: Normal Mood Description: Calm Affect: Normal Speech Pattern: Clear, Appropriate - Laboratory and Diagnostics Result Diagrams: 09/11/20 03:59 09/11/20 03:59 Labs: 09/09/20 04:05 Urine,Clean Catch Urine Culture - Final Laboratory WBC 5.8 X10^3/uL (3.6-10.0) 09/11/20 03:59 RBC 3.40 X10^6/uL (4.7-6.0) L 09/11/20 03:59 Hgb 9.7 g/dL (13.5-18.0) L 09/11/20 03:59 Hct 29.9 % (42.0-54.0) L 09/11/20 03:59 MCV 87.9 fL (80.0-100.0) 09/11/20 03:59 MCH 28.4 pg (27.0-34.0) 09/11/20 03:59 MCHC 32.3 g/dL (33.0-35.0) L 09/11/20 03:59 RDW 16.5 % (11.6-16.5) 09/11/20 03:59 Plt Count 180 X10^3/uL (150.0-450.0) 09/11/20 03:59 MPV 8.2 fL (7.4-11.0) 09/11/20 03:59 Neut % (Auto) 63.6 % (42.0-75.0) 09/11/20 03:59 Lymph % (Auto) 22.1 % (21.0-51.0) 09/11/20 03:59 [place] % (Auto) 5.3 % (0.0-13.0) 09/11/20 03:59 Eos % (Auto) 8.2 % (0.9-2.9) H 09/11/20 03:59 Baso % (Auto) 0.8 % (0.2-1.0) 09/11/20 03:59 Neut # (Auto) 3.7 x10^3/uL (2.2-4.8) 09/11/20 03:59 Lymph # (Auto) 1.3 X10^3/uL (1.3-2.9) 09/11/20 03:59 [place] # (Auto) 0.3 x10^3/uL (0.3-0.8) 09/11/20 03:59 Eos # (Auto) 0.5 x10^3/uL (0.0-0.2) H 09/11/20 03:59 Baso # (Auto) 0.0 X10^3/uL (0.0-0.1) 09/11/20 03:59 Absolute Nucleated RBC 0.0 /100WBC 09/11/20 03:59 Sodium 146 mmol/L (136-145) H 09/11/20 03:59 Corrected Sodium 147 mmol/L (136-145) H 09/11/20 03:59 Potassium 4.0 mmol/L (3.5-5.1) 09/11/20 03:59 Chloride 111 mmol/L (98-107) H 09/11/20 03:59 Carbon Dioxide 22.8 mmol/L (21-32) 09/11/20 03:59 BUN 5 mg/dL (7-18) L 09/11/20 03:59 Creatinine 0.98 mg/dL (0.70-1.30) 09/11/20 03:59 Est GFR (MDRD) Af Amer > 60 (>60) 09/11/20 03:59 Est GFR (MDRD) Non-Af > 60 (>60) 09/11/20 03:59 Glucose 124 mg/dL (65-99) H 09/11/20 03:59 POC Glucose (mg/dL) 113 mg/dL (65-99) H 09/11/20 05:00 Uric Acid 3.8 mg/dL (3.5-7.2) 09/08/20 01:24 Calcium 8.0 mg/dL (8.5-10.1) L 09/11/20 03:59 Corrected Calcium 9.0 mg/dL (8.5-10.1) 09/11/20 03:59 Magnesium 2.0 mg/dL (1.7-2.9) 09/11/20 03:59 Total Bilirubin 0.30 mg/dL (0.2-1.0) 09/11/20 03:59 AST 32 Units/L (15-37) 09/11/20 03:59 ALT 10 Units/L (12-78) L 09/11/20 03:59 Alkaline Phosphatase 75 Units/L (46-116) 09/11/20 03:59 Creatine Kinase 70 Units/L (39-308) 09/08/20 01:24 CK-MB (CK-2) < 1.0 ng/mL (0-4.0) 09/08/20 01:24 CK/CKMB % Calc 1.4 % (<4) 09/08/20 01:24 Troponin I < 0.02 ng/mL (0-1.5) 09/08/20 01:24 C-Reactive Protein 88.20 mg/L (0-3.0) H 09/08/20 01:24 Total Protein 7.0 g/dL (6.4-8.2) 09/11/20 03:59 Albumin 2.8 g/dL (3.4-5.0) L 09/11/20 03:59 Globulin 4.2 g/dL (2.5-4.5) 09/11/20 03:59 Albumin/Globulin Ratio 0.7 Ratio (1.1-2.1) L 09/11/20 03:59 Specimen Type Clean catch urine 09/09/20 04:05 Urine Color Straw (YELLOW) 09/09/20 04:05 Urine Appearance Clear (CLEAR) 09/09/20 04:05 Urine pH 6.0 (5.0 - 8.0) 09/09/20 04:05 Ur Specific [place] 1.010 (1.000-1.030) 09/09/20 04:05 Urine Protein Negative (NEGATIVE) 09/09/20 04:05 Urine Glucose (UA) Negative (NEGATIVE) 09/09/20 04:05 Urine Ketones Negative (NEGATIVE) 09/09/20 04:05 Urine Occult Blood 2+ (NEGATIVE) 09/09/20 04:05 Urine Nitrite Negative (NEGATIVE) 09/09/20 04:05 Urine Bilirubin Negative (NEGATIVE) 09/09/20 04:05 Urine Urobilinogen Normal (NORMAL) 09/09/20 04:05 Ur Leukocyte Esterase 2+ (NEGATIVE) 09/09/20 04:05 Urine RBC 0-2 /HPF (0-3) 09/09/20 04:05 Urine WBC 20-30 /HPF (0-5) A 09/09/20 04:05 Ur Squamous Epith Cells Rare /HPF (NEGATIVE) 09/09/20 04:05 Urine Bacteria Trace /HPF (NEGATIVE) 09/09/20 04:05 Ur Culture Indicated? Yes/culture set up 09/09/20 04:05 SARS CoV-2 RNA Rapid KRISS Negative (NEGATIVE) 09/07/20 13:22 - Plan (1) Cellulitis of knee, right Status: Acute Plan: NORMAL SALINE AT 125 ML/HR, ZOSYN 3.375G IV TID, TORADOL 15MG IV Q6H FAIAN, HUMULIN R SLIDING SCALE, OTBS ACHS, TEMOVATE CREAM TO LOWER EXTREMITIES BID, CONTINUE HOME MEDS (2) Hypotension Status: Acute Qualifiers: Hypotension type: unspecified hypotension type Qualified Code(s): I95.9 - Hypotension, unspecified (3) Frequent falls Status: Acute (4) Generalized weakness Status: Acute (5) Psoriasis Status: Chronic
== END 2020-09-11 11:45 | DRG 603 ==
LOC: ICU → OBSVTOIN 12:54 → MED/SURG 13:25
PROVIDERS: ADMIT Internal Medicine; ATTEND Internal Medicine
DX: Z20.822 Contact with and (suspected) exposure to COVID-19; N39.0 Urinary tract infection, site not specified; R79.82 Elevated C-reactive protein (CRP); Z96.651 Presence of right artificial knee joint; R06.02 Shortness of breath; R53.1 Weakness; I25.10 Atherosclerotic heart disease of native coronary artery without angina pectoris; E11.65 Type 2 diabetes mellitus with hyperglycemia; I95.89 Other hypotension; R29.6 Repeated falls; L03.115 Cellulitis of right lower limb; Z85.038 Personal history of other malignant neoplasm of large intestine; G30.9 Alzheimer's disease, unspecified; M25.561 Pain in right knee; E03.8 Other specified hypothyroidism; L40.8 Other psoriasis

== ENCOUNTER 2020-11-09 17:52 | Inpatient (IN) ==
[2020-11-09 21:58] LABS: BASOPHILS # (AUTO) 0.1 X10^3/uL (0.0-0.1); BASOPHILS % (AUTO) 0.8 % (0.2-1.0); EOSINOPHILS # (AUTO) 0.4 x10^3/uL (0.0-0.2); EOSINOPHILS % (AUTO) 3.9 % (0.9-2.9); HEMATOCRIT 33.3 % (42.0-54.0); LYMPHOCYTES # (AUTO) 1.7 X10^3/uL (1.3-2.9); LYMPHOCYTES % (AUTO) 17.9 % (21.0-51.0); MEAN CORPUSCULAR HEMOGLOBIN 29.9 pg (27.0-34.0); MEAN CORPUSCULAR HGB CONC 33.2 g/dL (33.0-35.0); MEAN CORPUSCULAR VOLUME 90.2 fL (80.0-100.0); MEAN PLATELET VOLUME 7.3 fL (7.4-11.0); MONOCYTES # (AUTO) 0.5 x10^3/uL (0.3-0.8); MONOCYTES % (AUTO) 5.5 % (0.0-13.0); NEUTROPHILS % (AUTO) 71.9 % (42.0-75.0); PLATELET COUNT 307 X10^3/uL (150.0-450.0); RED BLOOD COUNT 3.69 X10^6/uL (4.7-6.0); RED CELL DISTRIBUTION WIDTH 17.3 % (11.6-16.5); WHITE BLOOD COUNT 9.7 X10^3/uL (3.6-10.0)
[2020-11-09 22:03] VITALS: BMI 19.8
[2020-11-09 22:05] LABS: ALANINE AMINOTRANSFERASE 25 Units/L (12-78); ALKALINE PHOSPHATASE 91 Units/L (46-116); ASPARTATE AMINO TRANSFERASE 25 Units/L (15-37); BLOOD UREA NITROGEN 19 mg/dL (7-18); CALCIUM 8.4 mg/dL (8.5-10.1); CARBON DIOXIDE 21.7 mmol/L (21-32); CHLORIDE 106 mmol/L (98-107); COR CA(FOR HYPOALB) 9.2 mg/dL (8.5-10.1); COR NA(FOR HYPERGLY) 144 mmol/L (136-145); CREATININE 1.29 mg/dL (0.70-1.30); SODIUM 143 mmol/L (136-145); TOTAL PROTEIN 7.8 g/dL (6.4-8.2); eGFR NON BLACK RACES 58 (>60)
[2020-11-09] MEDS: SOLU-Medrol 40 MG VIAL IVP SCH (23:05)
[2020-11-09] MEDS: NS 1000 ML 1,000 ML IV SCH (23:05)
[2020-11-10] MEDS: NS 1000 ML 1,000 ML IV SCH ×3 (01:15→17:55)
[2020-11-10] MEDS: TEMOVATE CREAM EXT SCH ×3 (01:17→21:02)
[2020-11-10 05:08] LABS: BASOPHILS % (AUTO) 0.4 % (0.2-1.0); EOSINOPHILS % (AUTO) 0.5 % (0.9-2.9); HEMATOCRIT 30.5 % (42.0-54.0); HEMOGLOBIN 10.3 g/dL (13.5-18.0); LYMPHOCYTES # (AUTO) 0.8 X10^3/uL (1.3-2.9); MEAN CORPUSCULAR HEMOGLOBIN 29.9 pg (27.0-34.0); MEAN CORPUSCULAR HGB CONC 33.6 g/dL (33.0-35.0); MEAN CORPUSCULAR VOLUME 88.9 fL (80.0-100.0); MEAN PLATELET VOLUME 7.6 fL (7.4-11.0); MONOCYTES # (AUTO) 0.1 x10^3/uL (0.3-0.8); MONOCYTES % (AUTO) 1.7 % (0.0-13.0); NEUTROPHILS # (AUTO) 7.6 x10^3/uL (2.2-4.8); NEUTROPHILS % (AUTO) 88.4 % (42.0-75.0); PLATELET COUNT 299 X10^3/uL (150.0-450.0); RED BLOOD COUNT 3.44 X10^6/uL (4.7-6.0); RED CELL DISTRIBUTION WIDTH 17.1 % (11.6-16.5); WHITE BLOOD COUNT 8.6 X10^3/uL (3.6-10.0)
[2020-11-10 05:23] LABS: ALANINE AMINOTRANSFERASE 27 Units/L (12-78); ALBUMIN 2.7 g/dL (3.4-5.0); ALKALINE PHOSPHATASE 82 Units/L (46-116); ASPARTATE AMINO TRANSFERASE 22 Units/L (15-37); BLOOD UREA NITROGEN 19 mg/dL (7-18); CALCIUM 8.4 mg/dL (8.5-10.1); CARBON DIOXIDE 22.3 mmol/L (21-32); CHLORIDE 109 mmol/L (98-107); COR CA(FOR HYPOALB) 9.4 mg/dL (8.5-10.1); COR NA(FOR HYPERGLY) 147 mmol/L (136-145); CREATININE 1.29 mg/dL (0.70-1.30); SODIUM 144 mmol/L (136-145); TOTAL PROTEIN 7.2 g/dL (6.4-8.2); eGFR NON BLACK RACES 58 (>60)
[2020-11-10] MEDS: SOLU-Medrol 40 MG VIAL IVP SCH ×3 (05:57→21:01)
[2020-11-10] MEDS ORDERED: ZOLOFT ONE (09:31)
[2020-11-10] MEDS: TOPROL XL PO SCH (09:37)
[2020-11-10] MEDS: PLAVIX PO SCH (09:37)
[2020-11-10] MEDS: SYNTHROID 75 mcg TAB PO SCH (09:37)
[2020-11-10] MEDS: FOLIC ACID TAB 1 MG PO SCH (09:37)
[2020-11-10] MEDS: ZYLOPRIM PO SCH (09:37)
[2020-11-10] MEDS: ZOLOFT PO SCH (09:37)
[2020-11-10] MEDS: PROTONIX TAB 40 MG PO SCH (09:37)
[2020-11-10] MEDS: MEGACE PO SCH ×2 (09:38→20:55)
[2020-11-10] MEDS: VITAMIN B-12 PO SCH (09:38)
[2020-11-10] MEDS: GLUCOTROL XL 24-HR PO SCH (09:38)
[2020-11-10] MEDS: SINEMET CR 50/200 MG PO SCH ×3 (09:38→21:00)
[2020-11-10] MEDS: NAMENDA TAB 10 MG PO SCH ×2 (09:38→20:55)
--- NOTE | 2020-11-10 11:08 | DR.H&P ---
H&P - History & Physical for Day of: H&P Date: 11/09/20 - Chief Complaint Chief Complaint: PSORIASIS FLARE - History of Present Illness History of Present Illness: IS A 75 YEAR OLD PATIENT OF OURS WHO PRESENTED TO THE OFFICE WITH COMPLAINTS OF A FLARE UP OF HIS PSORIASIS. HE ADMITS TO COMPLIANCE WITH HIS PLAQUENIL, TRIAMCINOLONE CREAM, AND METHOTREXATE AT HOME, HOWEVER, IT HAS APPEARED TO HAVE WORSENED OVER THE PAST WEEK. EXAMINAT ION REVEALED RED, DRY PATCHES TO THE ARMS, LEGS, AND TRUNK. PATIENTS ENTIRE BACK IS NOTED WITH A THICKENED, INFLAMMED AREA THAT IS MORE PURPLE IN COLOR. PATCHES OF DRY SKIN ARE ALSO NOTED TO BACK. PATIENT DENIES ITCHING AT THE TIME OF EXAMINATION. HE IS ALSO NOTED TO HAVE MULTIPLE ABRASION TYPE WOUNDS TO THE BUTTOCKS WITH ONLY MINIMAL, CLEAR DRAINAGE. HE WAS DIRECT ADMITTED TO THE HOSPITAL FOR FURTHER EVALUATION AND TREATMENT OF PSORIASIS FLARE. ON ARRIVAL TO THE HOSPITAL, VITALS WERE 98.4-67-14-100%-138/70. LABS WERE OBTAINED. ABNORMAL LAB VALUES INCLUDE THE FOLLOWING: RBC 3.69, HGB 11.0, HCT 33.3, BUN 19, GLUCOSE 144, CALCIUM 8.4, CRP 29.20, ALBUMIN 3.0, GLOBULIN 4.8. COVID-19 NEGATIVE. HE WAS STARTED ON NORMAL SALINE AT 50 ML/HR, SOLU-MEDROL 80MG IV Q8H, TEMOVATE CREAM TO AREAS BID, AND HIS HOME MEDICATIONS WERE RESUMED. OTHERWISE, WE WILL FOLLOW UP WITH AM LABS AND CONTINUE TO MONITOR. TIME SPENT ON CLINICAL ASSESSMENT, REVIEWING LABS AND IMAGING, DECISION MAKING, AND DOCUMENTATION GREATER THAN 75 ML/HR. - Past Medical History Past Medical History: CO, Coronary Artery Disease, Hypertension, Dyslipidemia, Dementia, CHF Additional Medical History: Cataracts, Seasonal Allergies, Hearing Loss bilaterally, Diveritculosis, Constipation, Gastrointestinal Ulcer - Past Surgical History Surgical History: Appendectomy, CABG/Valve Surgery, Cholecystectomy, Joint Replacement, Ortho Surgery Additional Surgical History: Lumbar spine surgery due to herniated L4-L5 disk - Family History Family Medical History: CO, Coronary Artery Disease - Social History Does patient currently use any type of tobacco product: No Have you used tobacco products in the last 12 months: No Type of Tobacco Use: None Alcohol Use: None Drug Use: None - Medications Home Medications: iodine Allergy (Verified 05/03/20 10:39) Sulfa (Sulfonamide Antibiotics) [SULFA] Allergy (Verified 05/03/20 10:39) zolpidem [From Ambien] Allergy (Verified 05/03/20 10:39) CONTINUE taking the following medications clobetasol 1 applic TOPICAL BID 11/10/20 [History] cyanocobalamin (vitamin B-12) [Vitamin B-12] 1,000 mcg PO DAILY 11/10/20 [History] folic acid 1 mg PO DAILY 11/10/20 [History] triamcinolone acetonide 1 applic TOPICAL BID 11/10/20 [History] - Review of Systems Constitutional: No Symptoms Reported Eyes: No Symptoms Reported ENT: No Symptoms Reported Respiratory: No Symptoms Reported Cardiovascular: No Symptoms Reported Gastrointestinal: No Symptoms Reported Genitourinary: No Symptoms Reported Musculoskeletal: No Symptoms Reported Skin: See HPI, Rash, Wound Neurological: No Symptoms Reported - Physical Exam Vital Signs: Temperature 97.9 F Pulse Rate [Brachial] 66 Respiratory Rate 16 Blood Pressure [Right Arm] 143/63 O2 Sat by Pulse Oximetry 98 Oriented: Normal Eyes: Normal Ear: Normal Nose: Normal Throat: Normal Respiratory: Diminished Throughout Cardiovascular: Normal : Normal Auscultation: Bowel Sounds: Normal Palpation: Normal Tenderness: Normal Skin: Rash, Red, Other Musculoskeletal: Normal Psychiatric: Normal Mood Description: Calm Affect: Normal - Assessment/Plan (1) Psoriasis Status: Chronic Plan: ADMIT, NORMAL SALINE AT 50 ML/HR, SOLU-MEDROL 80MG IV Q8H, TEMOVATE CREAM TO AREAS BID, RESUME HOME MEDICATIONS (2) Abrasion of buttock Qualifiers: Encounter type: initial encounter Qualified Code(s): S30.810A - Abrasion of lower back and pelvis, initial encounter Status: Acute Plan: WOUND CARE - Allergies Allergies/Adverse Reactions: Allergies Allergy/AdvReac Type Severity Reaction Status Date / Time iodine Allergy Verified 05/03/20 10:39 Sulfa (Sulfonamide Allergy Verified 05/03/20 10:39 Antibiotics) [SULFA] zolpidem [From Ambien] Allergy Verified 05/03/20 10:39
[2020-11-10] MEDS: PLAQUENIL PO SCH ×2 (13:45→20:55)
[2020-11-10] MEDS: HumuLIN R SUBCUT PRN ×3 (13:54→20:54)
[2020-11-10] MEDS: SNACK - Diabetic Appropriate PO SCH (20:00)
[2020-11-10] MEDS: COLACE CAP 100 MG PO SCH (20:55)
[2020-11-10] MEDS: NEURONTIN CAP 300 MG PO SCH (20:55)
[2020-11-10] MEDS: NORVASC TAB 5 MG PO SCH (20:55)
[2020-11-10] MEDS: LIPITOR TAB 40 MG PO SCH (20:55)
[2020-11-10] MEDS: REQUIP PO SCH (20:55)
[2020-11-10] MEDS: ARICEPT TAB 10 MG PO SCH (20:55)
[2020-11-11] MEDS: NS 1000 ML 1,000 ML IV SCH ×3 (02:03→16:25)
[2020-11-11] MEDS: SOLU-Medrol 40 MG VIAL IVP SCH ×3 (05:08→21:27)
[2020-11-11] MEDS: SINEMET CR 50/200 MG PO SCH ×3 (05:08→21:26)
[2020-11-11 05:15] LABS: BASOPHILS % (AUTO) 0.1 % (0.2-1.0); HEMATOCRIT 31.8 % (42.0-54.0); HEMOGLOBIN 10.6 g/dL (13.5-18.0); LYMPHOCYTES # (AUTO) 1.3 X10^3/uL (1.3-2.9); LYMPHOCYTES % (AUTO) 9.7 % (21.0-51.0); MEAN CORPUSCULAR HEMOGLOBIN 29.5 pg (27.0-34.0); MEAN CORPUSCULAR HGB CONC 33.1 g/dL (33.0-35.0); MEAN CORPUSCULAR VOLUME 89.1 fL (80.0-100.0); MEAN PLATELET VOLUME 7.7 fL (7.4-11.0); MONOCYTES # (AUTO) 0.2 x10^3/uL (0.3-0.8); MONOCYTES % (AUTO) 1.9 % (0.0-13.0); NEUTROPHILS # (AUTO) 11.4 x10^3/uL (2.2-4.8); NEUTROPHILS % (AUTO) 88.3 % (42.0-75.0); PLATELET COUNT 346 X10^3/uL (150.0-450.0); RED BLOOD COUNT 3.57 X10^6/uL (4.7-6.0); RED CELL DISTRIBUTION WIDTH 17.1 % (11.6-16.5); WHITE BLOOD COUNT 12.9 X10^3/uL (3.6-10.0)
[2020-11-11 05:25] LABS: ALANINE AMINOTRANSFERASE 8 Units/L (12-78); ALBUMIN 2.9 g/dL (3.4-5.0); ALKALINE PHOSPHATASE 82 Units/L (46-116); ASPARTATE AMINO TRANSFERASE 28 Units/L (15-37); BLOOD UREA NITROGEN 17 mg/dL (7-18); CALCIUM 8.9 mg/dL (8.5-10.1); CHLORIDE 106 mmol/L (98-107); COR CA(FOR HYPOALB) 9.8 mg/dL (8.5-10.1); COR NA(FOR HYPERGLY) 145 mmol/L (136-145); CREATININE 1.09 mg/dL (0.70-1.30); SODIUM 142 mmol/L (136-145); TOTAL PROTEIN 7.6 g/dL (6.4-8.2); eGFR NON BLACK RACES > 60 (>60)
[2020-11-11] MEDS: HumuLIN R SUBCUT PRN ×4 (05:37→21:28)
[2020-11-11] MEDS ORDERED: ZOLOFT ONE (08:51)
[2020-11-11] MEDS: GLUCOTROL XL 24-HR PO SCH (08:56)
[2020-11-11] MEDS: ZYLOPRIM PO SCH (08:56)
[2020-11-11] MEDS: SYNTHROID 75 mcg TAB PO SCH (08:56)
[2020-11-11] MEDS: PLAQUENIL PO SCH ×2 (08:56→21:26)
[2020-11-11] MEDS: PROTONIX TAB 40 MG PO SCH (08:56)
[2020-11-11] MEDS: MEGACE PO SCH ×2 (08:56→21:26)
[2020-11-11] MEDS: TOPROL XL PO SCH (08:56)
[2020-11-11] MEDS: FOLIC ACID TAB 1 MG PO SCH (08:56)
[2020-11-11] MEDS: VITAMIN B-12 PO SCH (08:56)
[2020-11-11] MEDS: NAMENDA TAB 10 MG PO SCH ×2 (08:57→21:26)
[2020-11-11] MEDS: ZOLOFT PO SCH (08:57)
[2020-11-11] MEDS: PLAVIX PO SCH (08:58)
[2020-11-11] MEDS: TEMOVATE CREAM EXT SCH ×2 (08:58→21:29)
[2020-11-11] MEDS: SNACK - Diabetic Appropriate PO SCH (20:00)
[2020-11-11] MEDS: NEURONTIN CAP 300 MG PO SCH (21:26)
[2020-11-11] MEDS: COLACE CAP 100 MG PO SCH (21:26)
[2020-11-11] MEDS: REQUIP PO SCH (21:26)
[2020-11-11] MEDS: LIPITOR TAB 40 MG PO SCH (21:26)
[2020-11-11] MEDS: NORVASC TAB 5 MG PO SCH (21:26)
[2020-11-11] MEDS: ARICEPT TAB 10 MG PO SCH (21:26)
--- NOTE | 2020-11-11 23:17 | PCM.PROG ---
Progress Note - Progress Note for Day of Date of Exam: 11/11/20 - Subjective Subjective: WAS ADMITTED FOR TREATMENT OF A PSORIASIS FLARE, ABRASIONS OF BUTTOCKS, AND CELLULITIS OF BACK AND BUTTOCKS. TODAY, HE IS ALERT AND ORIENTED, LYING IN BED ON MORNING ROUNDS. HE DENIES COMPLAINTS THIS MORNING. BACK, CHEST, BUTTOCKS, AND EXTREMITIES CONTINUES WITH ERYTHEMA AND RAISED P ATCHES. THERE CONTINUES TO BE DRAINAGE FROM ULTIPLE AREAS ON BUTTOCKS AND BACK. HIS VITALS THIS MORNING ARE: 97.2-70-20-99%-136/60. LABS WERE OBTAINED. ABNORMAL LAB VALUES INCLUDE THE FOLLOWING: WBC 12.9, RBC 3.57, HGB 10.6, HCT 31.8, GLUCOSE 238, ALT 8, CRP 12.10, ALBUMIN 2.9, GLOBULIN 4.7. HE IS CURRENTLY RECEIVING NORMAL SALINE AT 50 ML/HR, SOLU-MEDROL 80MG IV Q8H, TEMOVATE CREAM TO AREAS BID, AND HIS HOME MEDICATIONS WERE RESUMED. WE WILL CONTINUE WITH CURRENT PLAN OF CARE TODAY AND ADD ZOSYN 3.375G IV TID. OTHERWISE, WE WILL CONTINUE WITH CURRENT PLAN OF CARE TODAY. WE WILL FOLLOW UP WITH AM LABS AND CONTINUE TO MONITOR. - Past Medical Family Social History Past Med/Fam/Surg Hx: No changes since H&P Allergies: Allergies iodine Allergy (Verified 05/03/20 10:39) Sulfa (Sulfonamide Antibiotics) [SULFA] Allergy (Verified 05/03/20 10:39) zolpidem [From Ambien] Allergy (Verified 05/03/20 10:39) - Review of Systems ROS: No change since H&P - Vital Signs and I&O's Vital Signs: Temperature 98.4 F Pulse Rate [Brachial] 77 Respiratory Rate 21 Blood Pressure [Left Arm] 148/65 Blood Pressure [Right Arm] 125/78 O2 Sat by Pulse Oximetry 100 Intake and Output: Intake & Output 11/09/20 11/10/20 11/11/20 11/12/20 11:59 11:59 11:59 11:59 Intake Total 551 / 551 2676 / 2676 1199 / 1199 Output Total Balance 551 / 551 2676 / 2676 1193 / 1193 - Physical Exam Oriented: Normal Eyes: Normal Ear: Normal Nose: Normal Throat: Normal Respiratory: Generalized, Diminished Cardiovascular: Normal : Normal Auscultation: Bowel Sounds: Normal Palpation: Normal Tenderness: Normal Skin: Rash, Red, Other Musculoskeletal: Normal Psychiatric: Normal Mood Description: Calm Affect: Normal Speech Pattern: Clear - Laboratory and Diagnostics Result Diagrams: 11/11/20 04:25 11/11/20 04:25 Labs: Laboratory WBC 12.9 X10^3/uL (3.6-10.0) H 11/11/20 04:25 RBC 3.57 X10^6/uL (4.7-6.0) L 11/11/20 04:25 Hgb 10.6 g/dL (13.5-18.0) L 11/11/20 04:25 Hct 31.8 % (42.0-54.0) L 11/11/20 04:25 MCV 89.1 fL (80.0-100.0) 11/11/20 04:25 MCH 29.5 pg (27.0-34.0) 11/11/20 04:25 MCHC 33.1 g/dL (33.0-35.0) 11/11/20 04:25 RDW 17.1 % (11.6-16.5) H 11/11/20 04:25 Plt Count 346 X10^3/uL (150.0-450.0) 11/11/20 04:25 MPV 7.7 fL (7.4-11.0) 11/11/20 04:25 Neut % (Auto) 88.3 % (42.0-75.0) H 11/11/20 04:25 Lymph % (Auto) 9.7 % (21.0-51.0) L 11/11/20 04:25 [place] % (Auto) 1.9 % (0.0-13.0) 11/11/20 04:25 Eos % (Auto) 0.0 % (0.9-2.9) L 11/11/20 04:25 Baso % (Auto) 0.1 % (0.2-1.0) L 11/11/20 04:25 Neut # (Auto) 11.4 x10^3/uL (2.2-4.8) H 11/11/20 04:25 Lymph # (Auto) 1.3 X10^3/uL (1.3-2.9) 11/11/20 04:25 [place] # (Auto) 0.2 x10^3/uL (0.3-0.8) L 11/11/20 04:25 Eos # (Auto) 0.0 x10^3/uL (0.0-0.2) 11/11/20 04:25 Baso # (Auto) 0.0 X10^3/uL (0.0-0.1) 11/11/20 04:25 Absolute Nucleated RBC 0.0 /100WBC 11/11/20 04:25 Sodium 142 mmol/L (136-145) 11/11/20 04:25 Corrected Sodium 145 mmol/L (136-145) 11/11/20 04:25 Potassium 3.9 mmol/L (3.5-5.1) 11/11/20 04:25 Chloride 106 mmol/L (98-107) 11/11/20 04:25 Carbon Dioxide 24.0 mmol/L (21-32) 11/11/20 04:25 BUN 17 mg/dL (7-18) 11/11/20 04:25 Creatinine 1.09 mg/dL (0.70-1.30) 11/11/20 04:25 Est GFR (MDRD) Af Amer > 60 (>60) 11/11/20 04:25 Est GFR (MDRD) Non-Af > 60 (>60) 11/11/20 04:25 Glucose 238 mg/dL (65-99) H 11/11/20 04:25 POC Glucose (mg/dL) 311 mg/dL (65-99) H 11/11/20 19:30 Calcium 8.9 mg/dL (8.5-10.1) 11/11/20 04:25 Corrected Calcium 9.8 mg/dL (8.5-10.1) 11/11/20 04:25 Total Bilirubin 0.20 mg/dL (0.2-1.0) 11/11/20 04:25 AST 28 Units/L (15-37) 11/11/20 04:25 ALT 8 Units/L (12-78) L 11/11/20 04:25 Alkaline Phosphatase 82 Units/L (46-116) 11/11/20 04:25 C-Reactive Protein 12.10 mg/L (0-3.0) H 11/11/20 04:25 Total Protein 7.6 g/dL (6.4-8.2) 11/11/20 04:25 Albumin 2.9 g/dL (3.4-5.0) L 11/11/20 04:25 Globulin 4.7 g/dL (2.5-4.5) H 11/11/20 04:25 Albumin/Globulin Ratio 0.6 Ratio (1.1-2.1) L 11/11/20 04:25 SARS CoV-2 RNA Rapid KRISS Negative (NEGATIVE) 11/09/20 19:34 - Plan (1) Psoriasis Status: Chronic Plan: NORMAL SALINE AT 50 ML/HR, SOLU-MEDROL 80MG IV Q8H, TEMOVATE CREAM TO AREAS BID, ZOSYN 3.375G IV TID, RESUME HOME MEDICATIONS (2) Abrasion of buttock Status: Acute Qualifiers: Encounter type: initial encounter Qualified Code(s): S30.810A - Abrasion of lower back and pelvis, initial encounter Plan: WOUND CARE
[2020-11-12] MEDS: SINEMET CR 50/200 MG PO SCH ×3 (05:37→21:00)
[2020-11-12] MEDS: NS 1000 ML 1,000 ML IV SCH ×2 (05:37→20:44)
[2020-11-12] MEDS: ZOSYN VIAL 3.375 GRAMS 3.375 G in NS 100 ML IV + SPIKE MINIBAG* 100 ML IV SCH ×3 (05:37→21:00)
[2020-11-12] MEDS: SOLU-Medrol 40 MG VIAL IVP SCH ×3 (05:37→21:00)
[2020-11-12] MEDS: HumuLIN R SUBCUT PRN ×4 (05:38→20:42)
[2020-11-12 06:08] LABS: BASOPHILS % (AUTO) 0.1 % (0.2-1.0); HEMATOCRIT 32.7 % (42.0-54.0); HEMOGLOBIN 10.9 g/dL (13.5-18.0); LYMPHOCYTES % (AUTO) 9.6 % (21.0-51.0); MEAN CORPUSCULAR HEMOGLOBIN 29.8 pg (27.0-34.0); MEAN CORPUSCULAR HGB CONC 33.2 g/dL (33.0-35.0); MEAN CORPUSCULAR VOLUME 89.9 fL (80.0-100.0); MEAN PLATELET VOLUME 7.4 fL (7.4-11.0); MONOCYTES # (AUTO) 0.4 x10^3/uL (0.3-0.8); MONOCYTES % (AUTO) 3.3 % (0.0-13.0); NEUTROPHILS # (AUTO) 9.4 x10^3/uL (2.2-4.8); PLATELET COUNT 340 X10^3/uL (150.0-450.0); RED BLOOD COUNT 3.64 X10^6/uL (4.7-6.0); RED CELL DISTRIBUTION WIDTH 17.3 % (11.6-16.5); WHITE BLOOD COUNT 10.8 X10^3/uL (3.6-10.0)
[2020-11-12 07:10] LABS: ALANINE AMINOTRANSFERASE 11 Units/L (12-78); ALBUMIN 2.8 g/dL (3.4-5.0); ALKALINE PHOSPHATASE 76 Units/L (46-116); ASPARTATE AMINO TRANSFERASE 28 Units/L (15-37); BLOOD UREA NITROGEN 23 mg/dL (7-18); CALCIUM 8.7 mg/dL (8.5-10.1); CARBON DIOXIDE 23.5 mmol/L (21-32); CHLORIDE 108 mmol/L (98-107); COR CA(FOR HYPOALB) 9.7 mg/dL (8.5-10.1); COR NA(FOR HYPERGLY) 148 mmol/L (136-145); CREATININE 1.06 mg/dL (0.70-1.30); SODIUM 144 mmol/L (136-145); TOTAL PROTEIN 7.2 g/dL (6.4-8.2); eGFR NON BLACK RACES > 60 (>60)
[2020-11-12] MEDS ORDERED: DIPRIVAN VIAL 0 ML ONE (07:15)
[2020-11-12] MEDS ORDERED: ZOLOFT ONE (09:13)
[2020-11-12] MEDS: GLUCOTROL XL 24-HR PO SCH (09:18)
[2020-11-12] MEDS: MEGACE PO SCH ×2 (09:18→20:46)
[2020-11-12] MEDS: NAMENDA TAB 10 MG PO SCH ×2 (09:18→20:46)
[2020-11-12] MEDS: ZYLOPRIM PO SCH (09:18)
[2020-11-12] MEDS: ZOLOFT PO SCH (09:19)
[2020-11-12] MEDS: SYNTHROID 75 mcg TAB PO SCH (09:19)
[2020-11-12] MEDS: PLAQUENIL PO SCH ×2 (09:19→20:46)
[2020-11-12] MEDS: VITAMIN B-12 PO SCH (09:20)
[2020-11-12] MEDS: TOPROL XL PO SCH (09:20)
[2020-11-12] MEDS: PROTONIX TAB 40 MG PO SCH (09:21)
[2020-11-12] MEDS: FOLIC ACID TAB 1 MG PO SCH (09:21)
[2020-11-12] MEDS: TEMOVATE CREAM EXT SCH ×2 (09:31→21:10)
[2020-11-12] MEDS: PLAVIX PO SCH (09:31)
--- NOTE | 2020-11-12 11:29 | PCM.PROG ---
Progress Note - Progress Note for Day of Date of Exam: 11/12/20 - Subjective Subjective: IS A 75 YEAR OLD PATIENT OF . HE IS BEING TREATED FOR PSORIASIS FLARE, ABRASIONS OF BUTTOCKS, AND CELLULITIS OF BACK AND BUTTOCKS. TODAY, HE IS ALERT AND ORIENTED, LYING IN BED ON MORNING ROUNDS. HE DENIES COMPLAINTS THIS MORNING. BACK, CHEST, BUTTOCKS, AND EXTREMITIES CONTINUES WITH ERYTHEMA AND RAISED PATCHES. THERE CONTINUES TO BE DRAINAGE FROM MULTIPLE AREAS ON BUTTOCKS AND BACK. SLIGHTLY IMPROVED SINCE YESTERDAY. HIS VITALS THIS MORNING ARE: 97.8-66-20-96%-147/70. LABS WERE OBTAINED. ABNORMAL LAB VALUES INCLUDE THE FOLLOWING: WBC 10.8, RBC 3.64, HGB 10.9, HCT 32.7, CHLORIDE 108, BUN 23, GLUCOSE 259, ALT 11, CRP 5.00, ALBUMIN 2.8. HE IS CURRENTLY RECEIVING NORMAL SALINE AT 50 ML/HR, ZOSYN 3.375G IV TID, SOLU-MEDROL 80MG IV Q8H, TEMOVATE CREAM TO AREAS BID, AND HIS HOME MEDICATIONS WERE RESUMED. WE WILL CONTINUE WITH CURRENT PLAN OF CARE TODAY. OTHERWISE, WE WILL FOLLOW UP WITH AM LABS AND CONTINUE TO MONITOR. TIME SPENT ON CLINICAL ASSESSMENT, REVIEWING LABS AND IMAGING, DECISION MAKING, AND DOCUMENTATION GREATER THAN 45 MINUTES. - Past Medical Family Social History Past Med/Fam/Surg Hx: No changes since H&P Allergies: Allergies iodine Allergy (Verified 05/03/20 10:39) Sulfa (Sulfonamide Antibiotics) [SULFA] Allergy (Verified 05/03/20 10:39) zolpidem [From Ambien] Allergy (Verified 05/03/20 10:39) - Review of Systems ROS: No change since H&P - Vital Signs and I&O's Vital Signs: Temperature 97.8 F Pulse Rate [Brachial] 66 Respiratory Rate 20 Blood Pressure [Left Arm] 147/70 Blood Pressure [Right Arm] 125/78 O2 Sat by Pulse Oximetry 96 Intake and Output: Intake & Output 11/09/20 11/10/20 11/11/20 11/12/20 23:59 23:59 23:59 23:59 Intake Total 120 / 120 2381 / 2381 2340 / 2340 454 / 454 Output Total / Balance 120 / 120 2381 / 2381 2334 / 2334 454 / 454 - Physical Exam Oriented: Normal Eyes: Normal Ear: Normal Nose: Normal Throat: Normal Respiratory: Generalized, Diminished Cardiovascular: Normal : Normal Auscultation: Bowel Sounds: Normal Palpation: Normal Tenderness: Normal Skin: Rash, Red, Other Musculoskeletal: Normal Psychiatric: Normal Mood Description: Calm Affect: Normal Speech Pattern: Clear - Laboratory and Diagnostics Result Diagrams: 11/12/20 04:35 11/12/20 04:35 Labs: Laboratory WBC 10.8 X10^3/uL (3.6-10.0) H 11/12/20 04:35 RBC 3.64 X10^6/uL (4.7-6.0) L 11/12/20 04:35 Hgb 10.9 g/dL (13.5-18.0) L 11/12/20 04:35 Hct 32.7 % (42.0-54.0) L 11/12/20 04:35 MCV 89.9 fL (80.0-100.0) 11/12/20 04:35 MCH 29.8 pg (27.0-34.0) 11/12/20 04:35 MCHC 33.2 g/dL (33.0-35.0) 11/12/20 04:35 RDW 17.3 % (11.6-16.5) H 11/12/20 04:35 Plt Count 340 X10^3/uL (150.0-450.0) 11/12/20 04:35 MPV 7.4 fL (7.4-11.0) 11/12/20 04:35 Neut % (Auto) 87.0 % (42.0-75.0) H 11/12/20 04:35 Lymph % (Auto) 9.6 % (21.0-51.0) L 11/12/20 04:35 [place] % (Auto) 3.3 % (0.0-13.0) 11/12/20 04:35 Eos % (Auto) 0.0 % (0.9-2.9) L 11/12/20 04:35 Baso % (Auto) 0.1 % (0.2-1.0) L 11/12/20 04:35 Neut # (Auto) 9.4 x10^3/uL (2.2-4.8) H 11/12/20 04:35 Lymph # (Auto) 1.0 X10^3/uL (1.3-2.9) L 11/12/20 04:35 [place] # (Auto) 0.4 x10^3/uL (0.3-0.8) 11/12/20 04:35 Eos # (Auto) 0.0 x10^3/uL (0.0-0.2) 11/12/20 04:35 Baso # (Auto) 0.0 X10^3/uL (0.0-0.1) 11/12/20 04:35 Absolute Nucleated RBC 0.1 /100WBC 11/12/20 04:35 Sodium 144 mmol/L (136-145) 11/12/20 04:35 Corrected Sodium 148 mmol/L (136-145) H 11/12/20 04:35 Potassium 4.2 mmol/L (3.5-5.1) 11/12/20 04:35 Chloride 108 mmol/L (98-107) H 11/12/20 04:35 Carbon Dioxide 23.5 mmol/L (21-32) 11/12/20 04:35 BUN 23 mg/dL (7-18) H 11/12/20 04:35 Creatinine 1.06 mg/dL (0.70-1.30) 11/12/20 04:35 Est GFR (MDRD) Af Amer > 60 (>60) 11/12/20 04:35 Est GFR (MDRD) Non-Af > 60 (>60) 11/12/20 04:35 Glucose 259 mg/dL (65-99) H 11/12/20 04:35 POC Glucose (mg/dL) 313 mg/dL (65-99) H 11/12/20 11:12 Calcium 8.7 mg/dL (8.5-10.1) 11/12/20 04:35 Corrected Calcium 9.7 mg/dL (8.5-10.1) 11/12/20 04:35 Total Bilirubin 0.20 mg/dL (0.2-1.0) 11/12/20 04:35 AST 28 Units/L (15-37) 11/12/20 04:35 ALT 11 Units/L (12-78) L 11/12/20 04:35 Alkaline Phosphatase 76 Units/L (46-116) 11/12/20 04:35 C-Reactive Protein 5.00 mg/L (0-3.0) H 11/12/20 04:35 Total Protein 7.2 g/dL (6.4-8.2) 11/12/20 04:35 Albumin 2.8 g/dL (3.4-5.0) L 11/12/20 04:35 Globulin 4.4 g/dL (2.5-4.5) 11/12/20 04:35 Albumin/Globulin Ratio 0.6 Ratio (1.1-2.1) L 11/12/20 04:35 SARS CoV-2 RNA Rapid KRISS Negative (NEGATIVE) 11/09/20 19:34 - Plan (1) Cellulitis Status: Acute Qualifiers: Site of cellulitis: other site Qualified Code(s): L03.818 - Cellulitis of other sites Plan: NORMAL SALINE AT 50 ML/HR, ZOSYN 3.375G IV TID, SOLU-MEDROL 80MG IV Q8H, TEMOVATE CREAM TO AREAS BID, ZOSYN 3.375G IV TID, RESUME HOME MEDICATIONS (2) Psoriasis Status: Chronic (3) Abrasion of buttock Status: Acute Qualifiers: Encounter type: initial encounter Qualified Code(s): S30.810A - Abrasion of lower back and pelvis, initial encounter Plan: WOUND CARE (4) Diabetes mellitus, type 2 Status: Chronic Qualifiers: Diabetes mellitus usp insulin use: with usp use Diabetes mellitus complication status: without complication Qualified Code(s): E11.9 - Type 2 diabetes mellitus without complications; Z79.4 - manager long term care (current) use of insulin Plan: MONITOR BLOOD GLUCOSE.
[2020-11-12] MEDS: SNACK - Diabetic Appropriate PO SCH (20:00)
[2020-11-12] MEDS: LIPITOR TAB 40 MG PO SCH (20:46)
[2020-11-12] MEDS: ARICEPT TAB 10 MG PO SCH (20:46)
[2020-11-12] MEDS: NEURONTIN CAP 300 MG PO SCH (20:46)
[2020-11-12] MEDS: NORVASC TAB 5 MG PO SCH (20:46)
[2020-11-12] MEDS: COLACE CAP 100 MG PO SCH (20:46)
[2020-11-12] MEDS: REQUIP PO SCH (20:46)
[2020-11-13 05:10] LABS: BASOPHILS % (AUTO) 0.1 % (0.2-1.0); HEMATOCRIT 35.8 % (42.0-54.0); HEMOGLOBIN 12.3 g/dL (13.5-18.0); LYMPHOCYTES # (AUTO) 0.9 X10^3/uL (1.3-2.9); LYMPHOCYTES % (AUTO) 8.9 % (21.0-51.0); MEAN CORPUSCULAR HEMOGLOBIN 30.5 pg (27.0-34.0); MEAN CORPUSCULAR HGB CONC 34.2 g/dL (33.0-35.0); MEAN CORPUSCULAR VOLUME 89.1 fL (80.0-100.0); MEAN PLATELET VOLUME 7.8 fL (7.4-11.0); MONOCYTES # (AUTO) 0.4 x10^3/uL (0.3-0.8); MONOCYTES % (AUTO) 3.5 % (0.0-13.0); NEUTROPHILS # (AUTO) 9.3 x10^3/uL (2.2-4.8); NEUTROPHILS % (AUTO) 87.5 % (42.0-75.0); PLATELET COUNT 348 X10^3/uL (150.0-450.0); RED BLOOD COUNT 4.02 X10^6/uL (4.7-6.0); RED CELL DISTRIBUTION WIDTH 17.5 % (11.6-16.5); WHITE BLOOD COUNT 10.6 X10^3/uL (3.6-10.0)
[2020-11-13] MEDS: SINEMET CR 50/200 MG PO SCH ×3 (05:16→21:20)
[2020-11-13] MEDS: SOLU-Medrol 40 MG VIAL IVP SCH ×3 (05:17→21:17)
[2020-11-13 05:25] LABS: ALANINE AMINOTRANSFERASE 7 Units/L (12-78); ALBUMIN 2.9 g/dL (3.4-5.0); ALKALINE PHOSPHATASE 78 Units/L (46-116); ASPARTATE AMINO TRANSFERASE 21 Units/L (15-37); BLOOD UREA NITROGEN 28 mg/dL (7-18); CALCIUM 8.8 mg/dL (8.5-10.1); CARBON DIOXIDE 25.7 mmol/L (21-32); CHLORIDE 105 mmol/L (98-107); COR CA(FOR HYPOALB) 9.7 mg/dL (8.5-10.1); COR NA(FOR HYPERGLY) 145 mmol/L (136-145); CREATININE 1.13 mg/dL (0.70-1.30); SODIUM 141 mmol/L (136-145); TOTAL PROTEIN 7.4 g/dL (6.4-8.2); eGFR NON BLACK RACES > 60 (>60)
[2020-11-13] MEDS: HumuLIN R SUBCUT PRN ×4 (05:36→22:03)
[2020-11-13] MEDS: ZOSYN VIAL 3.375 GRAMS 3.375 G in NS 100 ML IV + SPIKE MINIBAG* 100 ML IV SCH ×3 (06:32→21:19)
[2020-11-13] MEDS ORDERED: ZOLOFT ONE (07:52)
[2020-11-13] MEDS: GLUCOTROL XL 24-HR PO SCH (09:07)
[2020-11-13] MEDS: ZOLOFT PO SCH (09:07)
[2020-11-13] MEDS: SYNTHROID 75 mcg TAB PO SCH (09:07)
[2020-11-13] MEDS: MEGACE PO SCH ×2 (09:08→21:20)
[2020-11-13] MEDS: NAMENDA TAB 10 MG PO SCH ×2 (09:08→21:20)
[2020-11-13] MEDS: PLAQUENIL PO SCH ×2 (09:08→21:20)
[2020-11-13] MEDS: VITAMIN B-12 PO SCH (09:08)
[2020-11-13] MEDS: ZYLOPRIM PO SCH (09:09)
[2020-11-13] MEDS: FOLIC ACID TAB 1 MG PO SCH (09:09)
[2020-11-13] MEDS: PROTONIX TAB 40 MG PO SCH (09:09)
[2020-11-13] MEDS: PLAVIX PO SCH (09:09)
[2020-11-13] MEDS: TEMOVATE CREAM EXT SCH ×2 (09:10→21:22)
[2020-11-13] MEDS: TOPROL XL PO SCH (09:12)
[2020-11-13] MEDS: NS 1000 ML 1,000 ML IV SCH (11:17)
--- NOTE | 2020-11-13 11:43 | PCM.PROG ---
Progress Note - Progress Note for Day of Date of Exam: 11/13/20 - Subjective Subjective: IS BEING TREATED FOR PSORIASIS FLARE, ABRASIONS OF BUTTOCKS, AND CELLULITIS OF BACK AND BUTTOCKS. TODAY, HE IS ALERT AND ORIENTED, LYING IN BED ON MORNING ROUNDS. HE DENIES COMPLAINTS THIS MORNING. BACK, CHEST, BUTTOCKS, AND EXTREMITIES CONTINUES WITH ERYTHEMA AND RAISED PATCHES, BUT LOOK SIGNIFICANTLY BETTER THAN WHEN WE SAW HIM ON MONDAY. THERE IS MINIMAL DRAINAGE FROM AREAS ON BUTTOCKS AND BACK. HIS VITALS THIS MORNING ARE: 98.0-62-20-98%-131/69. LABS WERE OBTAINED. ABNORMAL LAB VALUES INCLUDE THE FOLLOWING: WBC 10.6, RBC 4.02, HGB 12.3, HCT 35.8, BUN 28, GLUCOSE 278, ALT 7, ALBUMIN 2.9. HE IS CURRENTLY RECEIVING NORMAL SALINE AT 50 ML/HR, ZOSYN 3.375G IV TID, SOLU-MEDROL 80MG IV Q8H, TEMOVATE CREAM TO AREAS BID, AND HIS HOME MEDICATIONS WERE RESUMED. WE WILL CONTINUE WITH CURRENT PLAN OF CARE TODAY. OTHERWISE, WE WILL FOLLOW UP WITH AM LABS AND CONTINUE TO MONITOR. TIME SPENT ON CLINICAL ASSESSMENT, REVIEWING LABS AND IMAGING, DECISION MAKING, AND DOCUMENTATION GREATER THAN 45 MINUTES. - Past Medical Family Social History Past Med/Fam/Surg Hx: No changes since H&P Allergies: Allergies iodine Allergy (Verified 05/03/20 10:39) Sulfa (Sulfonamide Antibiotics) [SULFA] Allergy (Verified 05/03/20 10:39) zolpidem [From Ambien] Allergy (Verified 05/03/20 10:39) - Review of Systems ROS: No change since H&P - Vital Signs and I&O's Vital Signs: Temperature 98.0 F Pulse Rate [Brachial] 62 Respiratory Rate 20 Blood Pressure [Left Arm] 131/69 Blood Pressure [Right Arm] 125/78 O2 Sat by Pulse Oximetry 98 Intake and Output: Intake & Output 11/10/20 11/11/20 11/12/20 11/13/20 11:59 11:59 11:59 11:59 Intake Total 551 / 551 2676 / 2676 2067 1778 / 1778 Output Total Balance 551 / 551 2676 / 2676 2062 / 2062 1778 / 1778 - Physical Exam Oriented: Normal Eyes: Normal Ear: Normal Nose: Normal Throat: Normal Respiratory: Generalized, Diminished Cardiovascular: Normal : Normal Auscultation: Bowel Sounds: Normal Palpation: Normal Tenderness: Normal Skin: Rash, Red, Other Musculoskeletal: Normal Psychiatric: Normal Mood Description: Calm Affect: Normal Speech Pattern: Clear, Appropriate - Laboratory and Diagnostics Result Diagrams: 11/13/20 04:05 11/13/20 04:05 Labs: Laboratory WBC 10.6 X10^3/uL (3.6-10.0) H 11/13/20 04:05 RBC 4.02 X10^6/uL (4.7-6.0) L 11/13/20 04:05 Hgb 12.3 g/dL (13.5-18.0) L 11/13/20 04:05 Hct 35.8 % (42.0-54.0) L 11/13/20 04:05 MCV 89.1 fL (80.0-100.0) 11/13/20 04:05 MCH 30.5 pg (27.0-34.0) 11/13/20 04:05 MCHC 34.2 g/dL (33.0-35.0) 11/13/20 04:05 RDW 17.5 % (11.6-16.5) H 11/13/20 04:05 Plt Count 348 X10^3/uL (150.0-450.0) 11/13/20 04:05 MPV 7.8 fL (7.4-11.0) 11/13/20 04:05 Neut % (Auto) 87.5 % (42.0-75.0) H 11/13/20 04:05 Lymph % (Auto) 8.9 % (21.0-51.0) L 11/13/20 04:05 [place] % (Auto) 3.5 % (0.0-13.0) 11/13/20 04:05 Eos % (Auto) 0.0 % (0.9-2.9) L 11/13/20 04:05 Baso % (Auto) 0.1 % (0.2-1.0) L 11/13/20 04:05 Neut # (Auto) 9.3 x10^3/uL (2.2-4.8) H 11/13/20 04:05 Lymph # (Auto) 0.9 X10^3/uL (1.3-2.9) L 11/13/20 04:05 [place] # (Auto) 0.4 x10^3/uL (0.3-0.8) 11/13/20 04:05 Eos # (Auto) 0.0 x10^3/uL (0.0-0.2) 11/13/20 04:05 Baso # (Auto) 0.0 X10^3/uL (0.0-0.1) 11/13/20 04:05 Absolute Nucleated RBC 0.1 /100WBC 11/13/20 04:05 Sodium 141 mmol/L (136-145) 11/13/20 04:05 Corrected Sodium 145 mmol/L (136-145) 11/13/20 04:05 Potassium 4.2 mmol/L (3.5-5.1) 11/13/20 04:05 Chloride 105 mmol/L (98-107) 11/13/20 04:05 Carbon Dioxide 25.7 mmol/L (21-32) 11/13/20 04:05 BUN 28 mg/dL (7-18) H 11/13/20 04:05 Creatinine 1.13 mg/dL (0.70-1.30) 11/13/20 04:05 Est GFR (MDRD) Af Amer > 60 (>60) 11/13/20 04:05 Est GFR (MDRD) Non-Af > 60 (>60) 11/13/20 04:05 Glucose 278 mg/dL (65-99) H 11/13/20 04:05 POC Glucose (mg/dL) 289 mg/dL (65-99) H 11/13/20 11:13 Calcium 8.8 mg/dL (8.5-10.1) 11/13/20 04:05 Corrected Calcium 9.7 mg/dL (8.5-10.1) 11/13/20 04:05 Total Bilirubin 0.30 mg/dL (0.2-1.0) 11/13/20 04:05 AST 21 Units/L (15-37) 11/13/20 04:05 ALT 7 Units/L (12-78) L 11/13/20 04:05 Alkaline Phosphatase 78 Units/L (46-116) 11/13/20 04:05 C-Reactive Protein 2.80 mg/L (0-3.0) 11/13/20 04:05 Total Protein 7.4 g/dL (6.4-8.2) 11/13/20 04:05 Albumin 2.9 g/dL (3.4-5.0) L 11/13/20 04:05 Globulin 4.5 g/dL (2.5-4.5) 11/13/20 04:05 Albumin/Globulin Ratio 0.6 Ratio (1.1-2.1) L 11/13/20 04:05 SARS CoV-2 RNA Rapid KRISS Negative (NEGATIVE) 11/09/20 19:34 - Plan (1) Psoriasis Status: Chronic Plan: NORMAL SALINE AT 50 ML/HR, SOLU-MEDROL 80MG IV Q8H, TEMOVATE CREAM TO AREAS BID, ZOSYN 3.375G IV TID, RESUME HOME MEDICATIONS (2) Abrasion of buttock Status: Acute Qualifiers: Encounter type: initial encounter Qualified Code(s): S30.810A - Abrasion of lower back and pelvis, initial encounter Plan: WOUND CARE
[2020-11-13] MEDS: LOVENOX INJ 40 MG SYR SC SCH (15:11)
[2020-11-13] MEDS: SNACK - Diabetic Appropriate PO SCH (20:10)
[2020-11-13] MEDS: LIPITOR TAB 40 MG PO SCH (21:20)
[2020-11-13] MEDS: ARICEPT TAB 10 MG PO SCH (21:20)
[2020-11-13] MEDS: NORVASC TAB 5 MG PO SCH (21:20)
[2020-11-13] MEDS: COLACE CAP 100 MG PO SCH (21:20)
[2020-11-13] MEDS: REQUIP PO SCH (21:20)
[2020-11-13] MEDS: NEURONTIN CAP 300 MG PO SCH (21:20)
[2020-11-14] MEDS: NS 1000 ML 1,000 ML IV SCH ×2 (02:23→14:12)
[2020-11-14] MEDS: SOLU-Medrol 40 MG VIAL IVP SCH ×3 (05:05→21:30)
[2020-11-14] MEDS: SINEMET CR 50/200 MG PO SCH ×3 (05:05→21:30)
[2020-11-14] MEDS: ZOSYN VIAL 3.375 GRAMS 3.375 G in NS 100 ML IV + SPIKE MINIBAG* 100 ML IV SCH ×3 (05:05→21:30)
[2020-11-14] MEDS: HumuLIN R SUBCUT PRN ×4 (05:21→21:30)
[2020-11-14 06:20] LABS: BASOPHILS % (AUTO) 0.1 % (0.2-1.0); HEMATOCRIT 39.3 % (42.0-54.0); LYMPHOCYTES # (AUTO) 1.3 X10^3/uL (1.3-2.9); LYMPHOCYTES % (AUTO) 11.1 % (21.0-51.0); MEAN CORPUSCULAR HEMOGLOBIN 29.8 pg (27.0-34.0); MEAN CORPUSCULAR HGB CONC 33.1 g/dL (33.0-35.0); MEAN PLATELET VOLUME 7.6 fL (7.4-11.0); MONOCYTES # (AUTO) 0.6 x10^3/uL (0.3-0.8); MONOCYTES % (AUTO) 5.1 % (0.0-13.0); NEUTROPHILS # (AUTO) 9.6 x10^3/uL (2.2-4.8); NEUTROPHILS % (AUTO) 83.7 % (42.0-75.0); PLATELET COUNT 352 X10^3/uL (150.0-450.0); RED BLOOD COUNT 4.37 X10^6/uL (4.7-6.0); RED CELL DISTRIBUTION WIDTH 17.3 % (11.6-16.5); WHITE BLOOD COUNT 11.5 X10^3/uL (3.6-10.0)
[2020-11-14 06:33] LABS: ALANINE AMINOTRANSFERASE 14 Units/L (12-78); ALBUMIN 3.1 g/dL (3.4-5.0); ALKALINE PHOSPHATASE 79 Units/L (46-116); ASPARTATE AMINO TRANSFERASE 29 Units/L (15-37); BLOOD UREA NITROGEN 26 mg/dL (7-18); CALCIUM 8.7 mg/dL (8.5-10.1); CARBON DIOXIDE 27.6 mmol/L (21-32); CHLORIDE 110 mmol/L (98-107); COR CA(FOR HYPOALB) 9.4 mg/dL (8.5-10.1); COR NA(FOR HYPERGLY) 150 mmol/L (136-145); CREATININE 1.05 mg/dL (0.70-1.30); SODIUM 147 mmol/L (136-145); TOTAL PROTEIN 7.6 g/dL (6.4-8.2); eGFR NON BLACK RACES > 60 (>60)
[2020-11-14] MEDS ORDERED: ZOLOFT ONE (08:14)
[2020-11-14] MEDS: LOVENOX INJ 40 MG SYR SC SCH (08:22)
[2020-11-14] MEDS: GLUCOTROL XL 24-HR PO SCH (08:22)
[2020-11-14] MEDS: FOLIC ACID TAB 1 MG PO SCH (08:22)
[2020-11-14] MEDS: PLAVIX PO SCH (08:23)
[2020-11-14] MEDS: MEGACE PO SCH ×2 (08:23→21:30)
[2020-11-14] MEDS: NAMENDA TAB 10 MG PO SCH ×2 (08:23→21:30)
[2020-11-14] MEDS: PLAQUENIL PO SCH ×2 (08:23→21:30)
[2020-11-14] MEDS: PROTONIX TAB 40 MG PO SCH (08:25)
[2020-11-14] MEDS: VITAMIN B-12 PO SCH (08:27)
[2020-11-14] MEDS: SYNTHROID 75 mcg TAB PO SCH (08:27)
[2020-11-14] MEDS: TOPROL XL PO SCH (08:27)
[2020-11-14] MEDS: ZYLOPRIM PO SCH (08:28)
[2020-11-14] MEDS: ZOLOFT PO SCH (08:28)
[2020-11-14] MEDS: TEMOVATE CREAM EXT SCH ×2 (08:33→21:30)
[2020-11-14] MEDS: SNACK - Diabetic Appropriate PO SCH (19:20)
[2020-11-14] MEDS ORDERED: ZOSYN VIAL 3.375 GRAMS IV ONE (20:00)
[2020-11-14] MEDS: LIPITOR TAB 40 MG PO SCH (21:30)
[2020-11-14] MEDS: NEURONTIN CAP 300 MG PO SCH (21:30)
[2020-11-14] MEDS: COLACE CAP 100 MG PO SCH (21:30)
[2020-11-14] MEDS: NORVASC TAB 5 MG PO SCH (21:30)
[2020-11-14] MEDS: REQUIP PO SCH (21:30)
[2020-11-14] MEDS: ARICEPT TAB 10 MG PO SCH (21:30)
[2020-11-15] MEDS: NS 1000 ML 1,000 ML IV SCH ×2 (00:04→04:27)
[2020-11-15 06:15] LABS: BASOPHILS % (AUTO) 0.1 % (0.2-1.0); HEMATOCRIT 35.8 % (42.0-54.0); HEMOGLOBIN 11.9 g/dL (13.5-18.0); LYMPHOCYTES # (AUTO) 1.7 X10^3/uL (1.3-2.9); LYMPHOCYTES % (AUTO) 12.8 % (21.0-51.0); MEAN CORPUSCULAR HEMOGLOBIN 29.8 pg (27.0-34.0); MEAN CORPUSCULAR HGB CONC 33.2 g/dL (33.0-35.0); MEAN CORPUSCULAR VOLUME 89.8 fL (80.0-100.0); MEAN PLATELET VOLUME 7.6 fL (7.4-11.0); MONOCYTES # (AUTO) 0.7 x10^3/uL (0.3-0.8); MONOCYTES % (AUTO) 5.3 % (0.0-13.0); NEUTROPHILS # (AUTO) 10.9 x10^3/uL (2.2-4.8); NEUTROPHILS % (AUTO) 81.8 % (42.0-75.0); PLATELET COUNT 307 X10^3/uL (150.0-450.0); RED BLOOD COUNT 3.99 X10^6/uL (4.7-6.0); RED CELL DISTRIBUTION WIDTH 17.4 % (11.6-16.5); WHITE BLOOD COUNT 13.3 X10^3/uL (3.6-10.0)
[2020-11-15] MEDS: SINEMET CR 50/200 MG PO SCH (06:20)
[2020-11-15] MEDS: SOLU-Medrol 40 MG VIAL IVP SCH (06:20)
[2020-11-15] MEDS: ZOSYN VIAL 3.375 GRAMS 3.375 G in NS 100 ML IV + SPIKE MINIBAG* 100 ML IV SCH (06:24)
[2020-11-15] MEDS: HumuLIN R SUBCUT PRN (06:25)
[2020-11-15 06:29] LABS: ALANINE AMINOTRANSFERASE 17 Units/L (12-78); ALBUMIN 2.8 g/dL (3.4-5.0); ALKALINE PHOSPHATASE 71 Units/L (46-116); ASPARTATE AMINO TRANSFERASE 33 Units/L (15-37); BLOOD UREA NITROGEN 22 mg/dL (7-18); CALCIUM 8.4 mg/dL (8.5-10.1); CARBON DIOXIDE 30.1 mmol/L (21-32); CHLORIDE 107 mmol/L (98-107); COR CA(FOR HYPOALB) 9.4 mg/dL (8.5-10.1); COR NA(FOR HYPERGLY) 146 mmol/L (136-145); SODIUM 143 mmol/L (136-145); TOTAL PROTEIN 6.9 g/dL (6.4-8.2); eGFR NON BLACK RACES > 60 (>60)
[2020-11-15] MEDS ORDERED: ZOLOFT ONE (08:03)
[2020-11-15] MEDS: GLUCOTROL XL 24-HR PO SCH (08:30)
[2020-11-15] MEDS: ZYLOPRIM PO SCH (08:30)
[2020-11-15] MEDS: PROTONIX TAB 40 MG PO SCH (08:31)
[2020-11-15] MEDS: FOLIC ACID TAB 1 MG PO SCH (08:31)
[2020-11-15] MEDS: ZOLOFT PO SCH (08:31)
[2020-11-15] MEDS: NAMENDA TAB 10 MG PO SCH (08:31)
[2020-11-15] MEDS: TOPROL XL PO SCH (08:31)
[2020-11-15] MEDS: VITAMIN B-12 PO SCH (08:31)
[2020-11-15] MEDS: LOVENOX INJ 40 MG SYR SC SCH (08:32)
[2020-11-15] MEDS: PLAQUENIL PO SCH (08:32)
[2020-11-15] MEDS: SYNTHROID 75 mcg TAB PO SCH (08:32)
[2020-11-15] MEDS: MEGACE PO SCH (08:32)
[2020-11-15] MEDS: PLAVIX PO SCH (08:32)
[2020-11-15 08:44] VITALS: BP 145/71
[2020-11-15] MEDS: TEMOVATE CREAM EXT SCH (08:44)
== END 2020-11-15 11:30 | disposition home health service (06) | DRG 603 ==
LOC: MED/SURG
PROVIDERS: ADMIT Internal Medicine; ATTEND Internal Medicine
DX: X58.XXXA Exposure to other specified factors, initial encounter; L03.317 Cellulitis of buttock; R26.89 Other abnormalities of gait and mobility; E78.2 Mixed hyperlipidemia; L40.8 Other psoriasis; Z20.822 Contact with and (suspected) exposure to COVID-19; Z79.4 Long term (current) use of insulin; E87.0 Hyperosmolality and hypernatremia; I10 Essential (primary) hypertension; S30.810A Abrasion of lower back and pelvis, initial encounter; I25.10 Atherosclerotic heart disease of native coronary artery without angina pectoris; E11.65 Type 2 diabetes mellitus with hyperglycemia

== ENCOUNTER 2020-12-02 09:32 | Observation (INO) ==
[2020-12-02 10:50] LABS: BASOPHILS # (AUTO) 0.1 X10^3/uL (0.0-0.1); BASOPHILS % (AUTO) 0.9 % (0.2-1.0); EOSINOPHILS # (AUTO) 0.2 x10^3/uL (0.0-0.2); HEMATOCRIT 34.6 % (42.0-54.0); HEMOGLOBIN 11.5 g/dL (13.5-18.0); LYMPHOCYTES # (AUTO) 1.7 X10^3/uL (1.3-2.9); LYMPHOCYTES % (AUTO) 23.4 % (21.0-51.0); MEAN CORPUSCULAR HEMOGLOBIN 30.2 pg (27.0-34.0); MEAN CORPUSCULAR HGB CONC 33.1 g/dL (33.0-35.0); MEAN CORPUSCULAR VOLUME 91.1 fL (80.0-100.0); MEAN PLATELET VOLUME 8.2 fL (7.4-11.0); MONOCYTES # (AUTO) 0.4 x10^3/uL (0.3-0.8); NEUTROPHILS # (AUTO) 4.9 x10^3/uL (2.2-4.8); NEUTROPHILS % (AUTO) 66.7 % (42.0-75.0); PLATELET COUNT 171 X10^3/uL (150.0-450.0); RED CELL DISTRIBUTION WIDTH 16.9 % (11.6-16.5); WHITE BLOOD COUNT 7.4 X10^3/uL (3.6-10.0)
[2020-12-02 11:08] LABS: ALANINE AMINOTRANSFERASE 12 Units/L (12-78); ALBUMIN 3.2 g/dL (3.4-5.0); ALKALINE PHOSPHATASE 80 Units/L (46-116); ASPARTATE AMINO TRANSFERASE 31 Units/L (15-37); BLOOD UREA NITROGEN 17 mg/dL (7-18); CALCIUM 8.9 mg/dL (8.5-10.1); CARBON DIOXIDE 23.8 mmol/L (21-32); CHLORIDE 109 mmol/L (98-107); COR CA(FOR HYPOALB) 9.5 mg/dL (8.5-10.1); COR NA(FOR HYPERGLY) 143 mmol/L (136-145); CREATININE 1.18 mg/dL (0.70-1.30); SODIUM 142 mmol/L (136-145); TOTAL PROTEIN 7.4 g/dL (6.4-8.2); eGFR NON BLACK RACES > 60 (>60)
[2020-12-02] MEDS: NS 1000 ML 1,000 ML IV SCH (13:01)
[2020-12-02] MEDS ORDERED: MIRALAX POWDER (255 GRAMS BTL) PO NR (14:00)
[2020-12-02] MEDS ORDERED: DULCOLAX TAB EC 5 MG PO ONE ×2 (15:00→19:48)
[2020-12-02] MEDS ORDERED: DULCOLAX TAB EC 5 MG PO SCH (21:00)
[2020-12-03] MEDS: NS 1000 ML 1,000 ML IV SCH ×2 (00:24→13:26)
[2020-12-03 06:09] LABS: BASOPHILS # (AUTO) 0.1 X10^3/uL (0.0-0.1); BASOPHILS % (AUTO) 0.8 % (0.2-1.0); EOSINOPHILS # (AUTO) 0.2 x10^3/uL (0.0-0.2); EOSINOPHILS % (AUTO) 3.2 % (0.9-2.9); HEMATOCRIT 33.8 % (42.0-54.0); HEMOGLOBIN 11.4 g/dL (13.5-18.0); LYMPHOCYTES # (AUTO) 1.5 X10^3/uL (1.3-2.9); LYMPHOCYTES % (AUTO) 22.4 % (21.0-51.0); MEAN CORPUSCULAR HEMOGLOBIN 30.7 pg (27.0-34.0); MEAN CORPUSCULAR HGB CONC 33.8 g/dL (33.0-35.0); MEAN CORPUSCULAR VOLUME 90.6 fL (80.0-100.0); MEAN PLATELET VOLUME 8.3 fL (7.4-11.0); MONOCYTES # (AUTO) 0.4 x10^3/uL (0.3-0.8); MONOCYTES % (AUTO) 6.4 % (0.0-13.0); NEUTROPHILS # (AUTO) 4.4 x10^3/uL (2.2-4.8); NEUTROPHILS % (AUTO) 67.2 % (42.0-75.0); PLATELET COUNT 184 X10^3/uL (150.0-450.0); RED BLOOD COUNT 3.73 X10^6/uL (4.7-6.0); RED CELL DISTRIBUTION WIDTH 16.8 % (11.6-16.5); WHITE BLOOD COUNT 6.5 X10^3/uL (3.6-10.0)
[2020-12-03 06:32] LABS: ALANINE AMINOTRANSFERASE 24 Units/L (12-78); ALBUMIN 3.1 g/dL (3.4-5.0); ALKALINE PHOSPHATASE 81 Units/L (46-116); ASPARTATE AMINO TRANSFERASE 29 Units/L (15-37); BLOOD UREA NITROGEN 11 mg/dL (7-18); CALCIUM 8.8 mg/dL (8.5-10.1); CARBON DIOXIDE 22.1 mmol/L (21-32); CHLORIDE 111 mmol/L (98-107); COR CA(FOR HYPOALB) 9.5 mg/dL (8.5-10.1); COR NA(FOR HYPERGLY) 145 mmol/L (136-145); CREATININE 1.08 mg/dL (0.70-1.30); SODIUM 144 mmol/L (136-145); eGFR NON BLACK RACES > 60 (>60)
[2020-12-03] MEDS ORDERED: DIPRIVAN VIAL 20 ML ONE (12:20)
[2020-12-03 14:49] VITALS: BP 165/74
== END 2020-12-03 16:05 | disposition home health service (06) ==
LOC: OBS → MED/SURG 10:59
PROVIDERS: ADMIT Internal Medicine; ATTEND Internal Medicine
DX: K64.0 First degree hemorrhoids; Z20.822 Contact with and (suspected) exposure to COVID-19; K92.1 Melena; K63.5 Polyp of colon; Z80.0 Family history of malignant neoplasm of digestive organs; K57.30 Diverticulosis of large intestine without perforation or abscess without bleeding; Z85.038 Personal history of other malignant neoplasm of large intestine